=== PATIENT | female | born 1940 | race Caucasian/White ===

== ENCOUNTER → 2017-04-04 | Outpatient (CLI) | payer MEDICARE | END | disposition home or self-care (01) | LOC: LABWHC1 16:31 | PROVIDERS: ATTEND Internal Medicine Interventional Cardiology | DX: E03.9 Hypothyroidism, unspecified (principal) | CPT/HCPCS: 36415; 84439; 84443 ==

== ENCOUNTER → 2018-01-24 | Outpatient (CLI) | payer MEDICARE, BC ==
[2018-01-24 10:32] LABS: Calcium 9.5 mg/dL (8.4-10.2); Potassium 4.4 mmol/L (3.5-5.1)
== END | disposition home or self-care (01) ==
LOC: LABWHC1 09:05
PROVIDERS: ATTEND Internal Medicine Interventional Cardiology
DX: I10 Essential (primary) hypertension (principal)
CPT/HCPCS: 36415; 80048

== ENCOUNTER 2021-07-17 15:37 | Inpatient (IN) | payer MEDICARE, BC ==
[2021-07-17] MEDS ORDERED: SODIUM CHLORIDE 0.9% 1,000 ML IV STA ×2 (15:42→18:28)
[2021-07-17 15:47] LABS: Glucose,Whole Blood 165 mg/dL (75-99)
--- NOTE | 2021-07-17 15:47 | ED ---
General Adult HPI - General Chief complaint: Altered Mental Status Stated complaint: stroke Time Seen by Provider: 07/17/21 15:42 Source: patient Mode of arrival: ambulatory Limitations: no limitations - History of Present Illness Initial comments: Dictation was produced using [employer] dictation software. please excuse any grammatical, word or spelling errors. Chief Complaint: 81-year-old female with unknown medical history presents to the emergency department for unresponsiveness History of Present Illness: Patient is an 81-year-old female she is brought in by EMS from [facility]. She was found this morning unresponsive. It's unclear whether patient was last seen normal. EMS got a limited history from [facility] staff. unknown what patient's medical history is. Upon initial EMS arrival they report that patient was unresponsive. She was found to be hypoxic with oxygen levels in the 70% speech is placed on 15 L nonrebreather with improvement of her oxygenation. She started to become more alert. She is not followed commands. EMS notes that patient had a slight sided left shoulder droop. EMS was told by [facility] that she had weakness in her left hand. EMS did not check her sugar. States that her heart rate was 124 they were not able to get an IV. Unable to obtain ROS secondary to mental status PHYSICAL EXAM: General Impression: Eyes open, not follow commands HEENT: Normocephalic atraumatic, dry mucous membranes, dark blood in the mouth Cardiovascular: Tachycardic Chest: Able to complete full sentences, no retractions, no tachypnea Abdomen: Some organomegaly in the epigastric abdominal area no fluid wave, she does rest to palpation of the abdomen Musculoskeletal: Pulses present and equal in all extremities, no peripheral edema Neurological: Doesn't follow commands, she does move all extremities with painful stimuli applied to the nailbed all extremities Rectal exam: Positive rectal tone, there is no melanotic debris or gross blood on digital rectal exam ED course: 81-year-old female with unknown past medical history presents to the emergency department via EMS from [facility] for unresponsiveness. At the bedside patient has eyes open not follow commands. She moves all extremities to painful stimuli. Point of care blood glucose was 165. Patient still hypoxic on room air however there isn't a reliable symmetry wave. She is placed on 15 L nonrebreather. Patient activated: Stroke. She is not a TPA candidate given that is unclear what her past medical history. Furthermore it is unclear when patient's symptom onset began. We do not know when patient was last seen normal. She does have signs of bleeding orally. This point TPA administration risks outweigh the benefits. History was obtained from daughter named Doris appeared she is listed as next of kin. She advised more history of present illness. States that her last several days she's been getting weak. There was a person in this assisted living facility who tested positive coronavirus last week. She was tested and test was negative. She has had poor oral intake for the last 2-3 days. Daughter received a call that patient was minimally responsive this morning. Daughter reports that patient has a history of dementia and thyroid disease and hiatal hernia. She has no history of stroke. She also has no history of GI bleed. Reports the patient is not taking any correlation medications. EKG interpretation: Ventricular rate 16, sinus tachycardia, CA interval 152, QRS 118, QTC 492. No CA prolongation, no QTC prolongation. It appears to be hyp eracute T waves in anterior septal precordial leads. This also T-wave inversions in lead 1 and aVL. There is no old EKG for comparison. She was placed on BiPAP. Code stroke was paged. Computed tomography scan the brain shows no hemorrhage. There is some ventriculomegaly consider hydrocephalus. , CT angiography of the head and neck shows fusiform stenosis of the cervical internal carotid arteries bilaterally. Laboratory evaluation obtained leukocytosis of 15.2. Coag panel is elevated INR 1.4. Metabolic panel shows acute kidney injury occurring 4.02 and a BUN of 97. Last creatinine was from March which was normal. Lactic acidosis of 10.4. Troponin 0.685. Urinalysis negative. Stool occult blood was positive. She is started on sodium bicarbonate drip. Arterial blood gases showed acceptable values on BiPAP. Patient given rectal aspirin. Patient be admitted. She has a guarded prognosis. Patient's daughter was updated. Patient started on broad-spectrum antibiotics. At this point there is concern for systemic inflammatory surgeon. There is concern of sepsis due to pneumonia. Patient was given 2 L cc bolus. Lactic acid level was 10.4. Case is discussed with Dr. Mckeon is willing to accept patients care. Neurology, nephrology and pulmonology are consulted. - Related Data Home Medications Medication Instructions Recorded Confirmed Ascorbic Acid [Vitamin C] 500 mg PO BID@0700,1900 07/17/21 07/17/21 Calcium Carbonate [Tums] 500 - 1,000 mg PO TID PRN 07/17/21 07/17/21 Calcium Polycarbophil [Fiber-Lax] 625 mg PO DAILY@0700 07/17/21 07/17/21 Cholecalciferol [Vitamin D3 (25 50 mcg PO DAILY@0700 07/17/21 07/17/21 Mcg = 1000 Iu)] Cyanocobalamin (Vitamin B-12) 1,000 mcg PO DAILY@0700 07/17/21 07/17/21 [Vitamin B-12] Folic Acid 1 mg PO DAILY@0700 07/17/21 07/17/21 Furosemide [Lasix] 20 mg PO Q48H 07/17/21 07/17/21 Lactulose 20 gm PO Q1H PRN 07/17/21 07/17/21 Levothyroxine Sodium [Synthroid] 25 mcg PO DAILY@0700 07/17/21 07/17/21 Liquacel 30 ml PO BID@0700,19007/17/21 07/17/21 Magnesium Hydroxide [Milk of 2,400 mg PO DAILY PRN 07/17/21 07/17/21 Magnesia] Memantine [Namenda] 10 mg PO BID@0700,19007/17/21 07/17/21 Metoprolol Succinate [Toprol XL] 25 mg PO DAILY@0700 07/17/21 07/17/21 Sennosides/Docusate Sodium [Senna 2 cap PO HS@19007/17/21 07/17/21 Plus 8.6-50 mg Softgel] Zinc Sulfate [Orazinc] 220 mg PO DAILY@0700 07/17/21 07/17/21 Allergies Allergy/AdvReac Type Severity Reaction Status Date / Time No Known Allergies Allergy Verified 07/17/21 16:56 Review of Systems ROS Statement: Those systems with pertinent positive or pertinent negative responses have been documented in the HPI. ROS Other: All systems not noted in ROS Statement are negative. Past Medical History Past Medical History: Unable to Obtain History of Any Multi-Drug Resistant Organisms: Unobtainable Past Surgical History: Unable to Obtain Past Psychological History: Unable to Obtain Smoking Status: Unknown if ever smoked Past Alcohol Use History: Unable to Obtain Past Drug Use History: Unable to Obtain General Exam Limitations: no limitations Course Vital Signs 07/17/21 07/17/21 07/17/21 15:40 15:54 16:26 Temperature 97.0 F L Pulse Rate 125 H 133 H 113 H Respiratory 20 20 20 Rate Blood Pressure 125/75 96/75 71/58 O2 Sat by Pulse 80 L 98 98 Oximetry 07/17/21 07/17/21 07/17/21 16:33 17:19 17:50 Temperature Pulse Rate 109 H 115 H 109 H Respiratory 20 24 24 Rate Blood Pressure 111/97 111/97 108/86 O2 Sat by Pulse 97 98 99 Oximetry Procedures - Sepsis Sepsis Focused Exam #1 Time Sepsis Criteria Met: 18:29 Sepsis Focused Exam Date: 07/17/21 Sepsis Focused Exam Time: 18:29 Capillary Refill: < 2 Seconds: Fingers, Toes Peripheral Pulses: Weak: Radial (R), Radial (L), Posterior Tibialis (R), Posterior Tibialis (L), Dorsalis Pedis (R), Dorsalis Pedis (L) Skin Color: Normal for Patient Respiratory Exam: wheezes Cardiovascular Exam: tachycardia Medical Decision Making - Lab Data Result diagrams: 07/17/21 16:16 07/17/21 16:16 Lab Results 07/17/21 07/17/21 07/17/21 Range/Units 15:39 15:59 16:08 WBC (3.8-10.6) k/uL RBC (3.80-5.40) m/uL Hgb (11.4-16.0) gm/dL Hct (34.0-46.0) % MCV (80.0-100.0) fL MCH (25.0-35.0) pg MCHC (31.0-37.0) g/dL RDW (11.5-15.5) % Plt Count (150-450) k/uL MPV Neutrophils % (Manual) % Band Neuts % (Manual) % Lymphocytes % (Manual) % Monocytes % (Manual) % Metamyelocytes % % Neutrophils # (Manual) (1.3-7.7) k/uL Lymphocytes # (Manual) (1.0-4.8) k/uL Monocytes # (Manual) (0-1.0) k/uL Metamyelocytes # (Man) (0) k/uL Nucleated RBCs (0-0) /100 WBC Manual Slide Review PT (9.0-12.0) sec INR (<1.2) APTT (22.0-30.0) sec Sodium (137-145) mmol/L Potassium (3.5-5.1) mmol/L Chloride (98-107) mmol/L Carbon Dioxide (22-30) mmol/L Anion Gap mmol/L BUN (7-17) mg/dL Creatinine (0.52-1.04) mg/dL Est GFR (CKD-EPI)AfAm (>60 ml/min/1.73 sqM) Est GFR (CKD-EPI)NonAf (>60 ml/min/1.73 sqM) Glucose (74-99) mg/dL POC Glucose (mg/dL) 165 H (75-99) mg/dL POC Glu Silverer ID Leticia Zayas Plasma Lactic Acid Jimbo (0.7-2.0) mmol/L Calcium (8.4-10.2) mg/dL Magnesium (1.6-2.3) mg/dL Total Bilirubin (0.2-1.3) mg/dL AST (14-36) U/L ALT (4-34) U/L Alkaline Phosphatase (38-126) U/L Troponin I (0.000-0.034) ng/mL Total Protein (6.3-8.2) g/dL Albumin (3.5-5.0) g/dL Urine Color Urine Appearance (Clear) Urine pH (5.0-8.0) Ur Specific Entiat (1.001-1.035) Urine Protein (Negative) Urine Glucose (UA) (Negative) Urine Ketones (Negative) Urine Blood (Negative) Urine Nitrite (Negative) Urine Bilirubin (Negative) Urine Urobilinogen (<2.0) mg/dL Ur Leukocyte Esterase (Negative) Urine RBC (0-5) /hpf Urine WBC (0-5) /hpf Ur Squamous Epith Cells (0-4) /hpf Hyaline Casts (0-2) /lpf Urine Mucus (None) /hpf Stool Occult Blood Positive H (Negative) Coronavirus (PCR) (Not Detectd) Blood Type O Positive Blood Type Confirm Blood Type Recheck No Previous Record Bld Type Recheck Status CABO Indicated Antibody Screen NEGATIVE Spec Expiration Date 07/20/2021230707/17/21 07/17/21 07/17/21 Range/Units 16:12 16:16 16:16 WBC 15.2 H (3.8-10.6) k/uL RBC 4.40 (3.80-5.40) m/uL Hgb 13.4 (11.4-16.0) gm/dL Hct 42.2 (34.0-46.0) % MCV 95.8 (80.0-100.0) fL MCH 30.5 (25.0-35.0) pg MCHC 31.8 (31.0-37.0) g/dL RDW 15.3 (11.5-15.5) % Plt Count 243 (150-450) k/uL MPV 9.6 Neutrophils % (Manual) 56 % Band Neuts % (Manual) 33 % Lymphocytes % (Manual) 9 % Monocytes % (Manual) 2 % Metamyelocytes % 1 % Neutrophils # (Manual) 13.50 H (1.3-7.7) k/uL Lymphocytes # (Manual) 1.37 (1.0-4.8) k/uL Monocytes # (Manual) 0.30 (0-1.0) k/uL Metamyelocytes # (Man) 0.15 H (0) k/uL Nucleated RBCs 5 H (0-0) /100 WBC Manual Slide Review Performed PT 14.3 H (9.0-12.0) sec INR 1.4 H (<1.2) APTT 17.8 L (22.0-30.0) sec Sodium (137-145) mmol/L Potassium (3.5-5.1) mmol/L Chloride (98-107) mmol/L Carbon Dioxide (22-30) mmol/L Anion Gap mmol/L BUN (7-17) mg/dL Creatinine (0.52-1.04) mg/dL Est GFR (CKD-EPI)AfAm (>60 ml/min/1.73 sqM) Est GFR (CKD-EPI)NonAf (>60 ml/min/1.73 sqM) Glucose (74-99) mg/dL POC Glucose (mg/dL) (75-99) mg/dL POC Glu Silverer ID Plasma Lactic Acid Jimbo (0.7-2.0) mmol/L Calcium (8.4-10.2) mg/dL Magnesium (1.6-2.3) mg/dL Total Bilirubin (0.2-1.3) mg/dL AST (14-36) U/L ALT (4-34) U/L Alkaline Phosphatase (38-126) U/L Troponin I (0.000-0.034) ng/mL Total Protein (6.3-8.2) g/dL Albumin (3.5-5.0) g/dL Urine Color Urine Appearance (Clear) Urine pH (5.0-8.0) Ur Specific Entiat (1.001-1.035) Urine Protein (Negative) Urine Glucose (UA) (Negative) Urine Ketones (Negative) Urine Blood (Negative) Urine Nitrite (Negative) Urine Bilirubin (Negative) Urine Urobilinogen (<2.0) mg/dL Ur Leukocyte Esterase (Negative) Urine RBC (0-5) /hpf Urine WBC (0-5) /hpf Ur Squamous Epith Cells (0-4) /hpf Hyaline Casts (0-2) /lpf Urine Mucus (None) /hpf Stool Occult Blood (Negative) Coronavirus (PCR) (Not Detectd) Blood Type Blood Type Confirm O Positive Blood Type Recheck Bld Type Recheck Status Antibody Screen Spec Expiration Date 07/17/21 07/17/21 07/17/21 Range/Units 16:16 16:16 16:16 WBC (3.8-10.6) k/uL RBC (3.80-5.40) m/uL Hgb (11.4-16.0) gm/dL Hct (34.0-46.0) % MCV (80.0-100.0) fL MCH (25.0-35.0) pg MCHC (31.0-37.0) g/dL RDW (11.5-15.5) % Plt Count (150-450) k/uL MPV Neutrophils % (Manual) % Band Neuts % (Manual) % Lymphocytes % (Manual) % Monocytes % (Manual) % Metamyelocytes % % Neutrophils # (Manual) (1.3-7.7) k/uL Lymphocytes # (Manual) (1.0-4.8) k/uL Monocytes # (Manual) (0-1.0) k/uL Metamyelocytes # (Man) (0) k/uL Nucleated RBCs (0-0) /100 WBC Manual Slide Review PT (9.0-12.0) sec INR (<1.2) APTT (22.0-30.0) sec Sodium 140 (137-145) mmol/L Potassium 4.2 (3.5-5.1) mmol/L Chloride 105 (98-107) mmol/L Carbon Dioxide 15 L (22-30) mmol/L Anion Gap 20 mmol/L BUN 97 H (7-17) mg/dL Creatinine 4.02 H (0.52-1.04) mg/dL Est GFR (CKD-EPI)AfAm 11 (>60 ml/min/1.73 sqM) Est GFR (CKD-EPI)NonAf 10 (>60 ml/min/1.73 sqM) Glucose 193 H (74-99) mg/dL POC Glucose (mg/dL) (75-99) mg/dL POC Glu Silverer ID Plasma Lactic Acid Jimbo 10.4 H* (0.7-2.0) mmol/L Calcium 9.4 (8.4-10.2) mg/dL Magnesium 2.4 H (1.6-2.3) mg/dL Total Bilirubin 1.0 (0.2-1.3) mg/dL AST 38 H (14-36) U/L ALT 29 (4-34) U/L Alkaline Phosphatase 125 (38-126) U/L Troponin I 0.685 H* (0.000-0.034) ng/mL Total Protein 6.0 L (6.3-8.2) g/dL Albumin 2.7 L (3.5-5.0) g/dL Urine Color Urine Appearance (Clear) Urine pH (5.0-8.0) Ur Specific Entiat (1.001-1.035) Urine Protein (Negative) Urine Glucose (UA) (Negative) Urine Ketones (Negative) Urine Blood (Negative) Urine Nitrite (Negative) Urine Bilirubin (Negative) Urine Urobilinogen (<2.0) mg/dL Ur Leukocyte Esterase (Negative) Urine RBC (0-5) /hpf Urine WBC (0-5) /hpf Ur Squamous Epith Cells (0-4) /hpf Hyaline Casts (0-2) /lpf Urine Mucus (None) /hpf Stool Occult Blood (Negative) Coronavirus (PCR) (Not Detectd) Blood Type Blood Type Confirm Blood Type Recheck Bld Type Recheck Status Antibody Screen Spec Expiration Date 07/17/21 07/17/21 Range/Units 16:16 16:17 WBC (3.8-10.6) k/uL RBC (3.80-5.40) m/uL Hgb (11.4-16.0) gm/dL Hct (34.0-46.0) % MCV (80.0-100.0) fL MCH (25.0-35.0) pg MCHC (31.0-37.0) g/dL RDW (11.5-15.5) % Plt Count (150-450) k/uL MPV Neutrophils % (Manual) % Band Neuts % (Manual) % Lymphocytes % (Manual) % Monocytes % (Manual) % Metamyelocytes % % Neutrophils # (Manual) (1.3-7.7) k/uL Lymphocytes # (Manual) (1.0-4.8) k/uL Monocytes # (Manual) (0-1.0) k/uL Metamyelocytes # (Man) (0) k/uL Nucleated RBCs (0-0) /100 WBC Manual Slide Review PT (9.0-12.0) sec INR (<1.2) APTT (22.0-30.0) sec Sodium (137-145) mmol/L Potassium (3.5-5.1) mmol/L Chloride (98-107) mmol/L Carbon Dioxide (22-30) mmol/L Anion Gap mmol/L BUN (7-17) mg/dL Creatinine (0.52-1.04) mg/dL Est GFR (CKD-EPI)AfAm (>60 ml/min/1.73 sqM) Est GFR (CKD-EPI)NonAf (>60 ml/min/1.73 sqM) Glucose (74-99) mg/dL POC Glucose (mg/dL) (75-99) mg/dL POC Glu Silverer ID Plasma Lactic Acid Jimbo (0.7-2.0) mmol/L Calcium (8.4-10.2) mg/dL Magnesium (1.6-2.3) mg/dL Total Bilirubin (0.2-1.3) mg/dL AST (14-36) U/L ALT (4-34) U/L Alkaline Phosphatase (38-126) U/L Troponin I (0.000-0.034) ng/mL Total Protein (6.3-8.2) g/dL Albumin (3.5-5.0) g/dL Urine Color Yellow Urine Appearance Cloudy H (Clear) Urine pH 5.0 (5.0-8.0) Ur Specific Entiat 1.021 (1.001-1.035) Urine Protein Trace H (Negative) Urine Glucose (UA) Negative (Negative) Urine Ketones Negative (Negative) Urine Blood Negative (Negative) Urine Nitrite Negative (Negative) Urine Bilirubin Negative (Negative) Urine Urobilinogen <2.0 (<2.0) mg/dL Ur Leukocyte Esterase Negative (Negative) Urine RBC 12 H (0-5) /hpf Urine WBC 5 (0-5) /hpf Ur Squamous Epith Cells 2 (0-4) /hpf Hyaline Casts 8 H (0-2) /lpf Urine Mucus Rare H (None) /hpf Stool Occult Blood (Negative) Coronavirus (PCR) Not Detected (Not Detectd) Blood Type Blood Type Confirm Blood Type Recheck Bld Type Recheck Status Antibody Screen Spec Expiration Date Critical Care Time Critical Care Time: Yes Total Critical Care Time: 33 Disposition Clinical Impression: Sepsis due to pneumonia, JUAN DAVID (acute kidney injury) Disposition: ADMITTED IP TO THIS [facility] Condition: Critical Referrals: Aysha Amin MD [REFERRING] - 1-2 days
--- NOTE | 2021-07-17 16:17 | CT ---
EXAMINATION TYPE: CT brain wo con for TPA DATE OF EXAM: 07/17/2021 COMPARISON: CT brain 04/10/2016 HISTORY: Neuro deficits. CT DLP: 1099.4 mGycm Automated exposure control for dose reduction was used. Helical imaging through the brain. FINDINGS: Cortical atrophy is again noted. There is ventriculomegaly similar to prior exam. No evident hemorrha ge. Periventricular white matter shows patchy low attenuation. Calvarium is intact. IMPRESSION: NO EVIDENT HEMORRHAGE. SUSPECT SOME INTERVAL INCREASE IN THE DEGREE OF VENTRICULOMEGALY, CONSIDER HYD ROCEPHALUS, NORMAL PRESSURE HYDROCEPHALUS. AGE-RELATED CHANGES OF ATROPHY AND CHRONIC SMALL VESSEL IS CHEMIA.
[2021-07-17 16:24] LABS: HCT 42.2 % (34.0-46.0); HGB 13.4 gm/dL (11.4-16.0); MCH 30.5 pg (25.0-35.0); MCHC 31.8 g/dL (31.0-37.0); MCV 95.8 fL (80.0-100.0); Mean Platelet Volume 9.6; Platelet Count 243 k/uL (150-450); RDW 15.3 % (11.5-15.5)
[2021-07-17 16:38] LABS: Appearance,Urine Cloudy (Clear); Bilirubin,Urine Negative (Negative); Blood,Urine Negative (Negative); Color,Urine Yellow; Glucose,Urine (UA) Negative (Negative); Hyaline Casts,Urine 8 /lpf (0-2); Ketones,Urine Negative (Negative); Leukocyte Esterase,Urine Negative (Negative); Mucus,Urine Rare /hpf; Nitrite,Urine Negative (Negative); Protein,Urine Trace (Negative); RBC,Urine 12 /hpf (0-5); Specific Gravity,Urine 1.021 (1.001-1.035); Squamous Epithelial Cell,Urine 2 /hpf (0-4); Urobilinogen,Urine <2.0 mg/dL (<2.0); WBC,Urine 5 /hpf (0-5)
[2021-07-17 16:39] LABS: INR 1.4 (<1.2); Prothrombin Time 14.3 sec (9.0-12.0)
[2021-07-17 16:41] LABS: Albumin 2.7 g/dL (3.5-5.0); Calcium 9.4 mg/dL (8.4-10.2); Magnesium 2.4 mg/dL (1.6-2.3); Potassium 4.2 mmol/L (3.5-5.1)
[2021-07-17 16:43] LABS: Partial Thromboplastin Time 17.8 sec (22.0-30.0)
[2021-07-17] MEDS ORDERED: VANCOMYCIN IV PER PHARMACY 1 EACH MISC MISCELLANE PRN (16:49)
[2021-07-17] MEDS ORDERED: PIPERACILLIN-TAZOBACTAM 3.375 GM in SODIUM CHLORIDE 0.9% 100 ML IVPB STA (16:49)
[2021-07-17 16:51] LABS: Band Neutrophils % 33 %; Lymphocytes # (M) 1.37 k/uL (1.0-4.8); Metamyelocytes # (M) 0.15 k/uL (0); Metamyelocytes % 1 %; Neutrophils % (M) 56 %; Nucleated Red Blood Cells 5 /100 WBC (0-0); Total Cells Counted 200; WBC 15.2 k/uL (3.8-10.6)
[2021-07-17] MEDS ORDERED: VANCOMYCIN 1,250 MG in SODIUM CHLORIDE 0.9% 250 ML IVPB STA (16:53)
--- NOTE | 2021-07-17 17:31 | XR ---
EXAMINATION TYPE: XR chest 2V DATE OF EXAM: 07/17/2021 COMPARISON: Chest CT scan 07/14/2011 HISTORY: Altered mental status TECHNIQUE: FINDINGS: There is patchy bilateral pulmonary airspace infiltrates. There is no obvious heart failure . Heart size is normal. Costophrenic angles show no definite pleural fluid. There are chest leads. IMPRESSION: Moderate bilateral patchy pneumonia which is new compared to old exam. No obvious heart f ailure.
--- NOTE | 2021-07-17 17:41 | CT ---
EXAMINATION TYPE: CT angio head neck DATE OF EXAM: 07/17/2021 COMPARISON: None HISTORY: Neuro deficits CT DLP: 331.6 mGycm Automated exposure control for dose reduction was used. CONTRAST: Performed with IV Contrast, patient injected with 65 mL of Isovue 370. Images obtained from the aortic arch to the vertex of the brain with IV contrast. There are 3-D post processed images. There is dilated fluid-filled thoracic esophagus. Aortic arch is intact. There is normal branching pa ttern of the great vessels on the aortic arch. There is arterial flow in both subclavian arteries. Th ere are some cystic changes in the thyroid gland. There is arterial flow in the common internal and e xternal carotid arteries bilaterally. There is arterial flow in both vertebral arteries. There is wid e patency of the carotid artery bifurcations. There is some fusiform narrowing of the distal internal carotid arteries bilaterally at the level of the angle of the mandible. Right internal carotid artery is narrowed to 2.7 mm. There is 3 mm left in ternal carotid artery. There is no evidence of carotid or vertebral artery aneurysm or dissection. There is arterial flow in the vertebrobasilar artery system. There is arterial flow in the anterior m iddle and posterior cerebral arteries bilaterally. I see no evidence of intracranial hemodynamic sten osis. There is no evidence of intracranial aneurysm or neovascularity. There is normal enhancement of the venous sinuses. There is no mass effect. IMPRESSION: There is fusiform stenosis of the cervical internal carotid arteries bilaterally.
[2021-07-17] MEDS ORDERED: ASPIRIN 600 MG SUPP RECTAL STA (18:22)
[2021-07-17] MEDS ORDERED: ACETAMINOPHEN TAB 325 MG TAB PO PRN (18:23)
[2021-07-17] MEDS ORDERED: ONDANSETRON 4 MG/2 ML VIAL IVP PRN (18:23)
[2021-07-17] MEDS ORDERED: NALOXONE 0.4 MG/ML 1 ML VIAL IV PRN (18:23)
[2021-07-17] MEDS ORDERED: SODIUM BICARB 8.4% 50 ML SYR (1 MEQ/ML) IV STA (18:23)
[2021-07-17] MEDS ORDERED: ASPIRIN 300 MG SUPP RECTAL STA (18:26)
[2021-07-17] MEDS ORDERED: PANTOPRAZOLE 40 MG/10 ML VIAL IVP STA (18:33)
[2021-07-17] MEDS: SODIUM CHLORIDE 0.9% 1,000 ML IV SCH (18:52)
[2021-07-17] MEDS: DEXTROSE 5% IN WATER 1,000 ML with SODIUM BICARB (1 MEQ/ML) 150 ML IV SCH (19:38)
[2021-07-18] MEDS ORDERED: VANCOMYCIN 1,250 MG in SODIUM CHLORIDE 0.9% 250 ML IVPB ONE (06:00)
[2021-07-18 08:19] LABS: Calcium 7.9 mg/dL (8.4-10.2); Magnesium 2.1 mg/dL (1.6-2.3); Total Bilirubin 0.6 mg/dL (0.2-1.3); Total Protein 4.6 g/dL (6.3-8.2)
--- NOTE | 2021-07-18 09:43 | P.NPCON ---
History of Present Illness - Reason for Consult acute renal failure - History of Present Illness Reason for consultation: Acute kidney injury History of present illness: Patient is a 81-year-old female seen in consultation for acute kidney injury. Patient baseline creatinine from March 2021 is 1.0. This admission and was elevated at 4.02 and is down to 3.56 today. Patient presented from an ECF due t o unresponsiveness. She was noted to be hypoxic and is currently on BiPAP. She did undergo CT angiographic of the head and neck on July 17 which showed fusiform stenosis of the cervical internal carotid arteries bilaterally. She tested negative for coronavirus. Patient was acidotic on admission which is now resolved. She is currently maintained on bicarb drip. Potassium level is on the lower side. She is not responding much to verbal commands. Blood pressure was noted to be low in the systolic 70s to 90s on admission. This morning it was 101/78. She was on Lasix outpatient and is currently held. Vital signs are stable. HEENT: Head exam is unremarkable. On BiPAP. LUNGS: Breath sounds decreased. HEART: Rate and Rhythm are regular. ABDOMEN: Soft, no distention. EXTREMITITES: No edema. Past Medical History Past Medical History: Unable to Obtain History of Any Multi-Drug Resistant Organisms: Unobtainable Past Surgical History: Unable to Obtain Past Psychological History: Unable to Obtain Smoking Status: Unknown if ever smoked Past Alcohol Use History: Unable to Obtain Past Drug Use History: Unable to Obtain Medications and Allergies Home Medications Medication Instructions Recorded Confirmed Type Ascorbic Acid [Vitamin C] 500 mg PO BID@0700,1900 07/17/21 07/17/21 History Calcium Carbonate [Tums] 500 - 1,000 mg PO TID PRN 07/17/21 07/17/21 History Calcium Polycarbophil [Fiber-Lax] 625 mg PO DAILY@0700 07/17/21 07/17/21 History Cholecalciferol [Vitamin D3 (25 50 mcg PO DAILY@0700 07/17/21 07/17/21 History Mcg = 1000 Iu)] Cyanocobalamin (Vitamin B-12) 1,000 mcg PO DAILY@0700 07/17/21 07/17/21 History [Vitamin B-12] Folic Acid 1 mg PO DAILY@0700 07/17/21 07/17/21 History Furosemide [Lasix] 20 mg PO Q48H 07/17/21 07/17/21 History Lactulose 20 gm PO Q1H PRN 07/17/21 07/17/21 History Levothyroxine Sodium [Synthroid] 25 mcg PO DAILY@0700 07/17/21 07/17/21 History Liquacel 30 ml PO BID@0700,1900 07/17/21 07/17/21 History Magnesium Hydroxide [Milk of 2,400 mg PO DAILY PRN 07/17/21 07/17/21 History Magnesia] Memantine [Namenda] 10 mg PO BID@0700,1900 07/17/21 07/17/21 History Metoprolol Succinate [Toprol XL] 25 mg PO DAILY@0700 07/17/21 07/17/21 History Sennosides/Docusate Sodium [Senna 2 cap PO HS@1900 07/17/21 07/17/21 History Plus 8.6-50 mg Softgel] Zinc Sulfate [Orazinc] 220 mg PO DAILY@0700 07/17/21 07/17/21 History Allergies Allergy/AdvReac Type Severity Reaction Status Date / Time No Known Allergies Allergy Verified 07/17/21 16:56 Physical Exam Vitals: Vital Signs Temp Pulse Pulse Resp BP BP Pulse Ox 07/18/21 08:00 97.5 F L 93 19 101/78 95 07/18/21 04:00 97.5 F L 97 20 131/80 07/18/21 02:00 20 07/18/21 00:00 97.9 F 102 H 20 103/63 07/17/21 22:00 110 H 22 101/52 94 L 07/17/21 20:00 107 H 25 H 96/61 93 L 07/17/21 18:43 97.9 F 113 H 24 91/50 97 07/17/21 17:50 109 H 24 108/86 99 07/17/21 17:19 115 H 24 111/97 98 07/17/21 16:33 109 H 20 111/97 97 07/17/21 16:26 113 H 20 71/58 98 07/17/21 15:54 133 H 20 96/75 98 07/17/21 15:40 97.0 F L 125 H 20 125/75 80 L Intake and Output 07/17/21 07/18/21 07/18/21 22:59 06:59 14:59 Intake Total 840 Balance 840 Intake: Intake, IV Titration 840 Amount Dextrose 5% in Water 1, 840 000 ml @ 120 mls/hr IV . Q9H35M JONO with Sodium Bicarb (1 Meq/ml) 150 ml Rx#:[id number] Other: Weight 60.6 kg 67 kg Results - Lab Results Most recent lab results Calcium 7.9 mg/dL (8.4-10.2) L 07/18/21 04:57 Magnesium 2.1 mg/dL (1.6-2.3) 07/18/21 04:57 07/17/21 16:16 07/18/21 04:57 Assessment and Plan Plan: Assessment: 1. Acute kidney injury secondary to ATN secondary to hypotension. Patient also received IV contrast on July 17. Creatinine was 4.02 on admission and is down to 3.56 today. Baseline creatinine near 1. 2. Acute hypoxic respiratory failure. 3.. Hypokalemia from poor intake and intracellular shifting from IV bicarb. 4. Metabolic acidosis secondary to acute kidney injury maintained on bicarb drip. Improved. 5. Pneumonia on antibiotics. Plan: Stop bicarb drip. Start normal saline at 75 mL an hour. Replace potassium. Check renal ultrasound. Continue to monitor renal function and urine output. Thank you for the consultation. I will continue to follow the patient with you during her hospital stay.
[2021-07-18] MEDS ORDERED: SODIUM CHLORIDE 0.9% 1,000 ML IV SCH (09:45)
--- NOTE | 2021-07-18 10:35 | US ---
EXAMINATION TYPE: US kidneys/renal and bladder DATE OF EXAM: 07/18/2021 COMPARISON: CT abdomen 2010 CLINICAL HISTORY: taylor. EXAM MEASUREMENTS: Right Kidney: 10.0 x 4.5 x 5.0 cm Left Kidney: 8.5 x 4.1 x 4.3 cm Technically difficult exam due to patient being agitated and uncooperative for exam. Right Kidney: lower pole cyst measures 4.8 x 5.6 x 4.9 cm Left Kidney: No hydronephrosis or masses seen Bladder: not imaged Suboptimal study. No gross hydronephrosis seen bilaterally. Some cortical thinning bilaterally. Incre ased cortical echogenicity left kidney. Roughly 5.0 cm partially exophytic thin-walled cyst lower josselyn e right kidney redemonstrated. IMPRESSION: Suboptimal study without hydronephrosis seen bilaterally.
--- NOTE | 2021-07-18 12:58 | P.CNNES ---
History of Present Illness Consult date: 07/18/21 Requesting physician: Aiden Castrejon Reason for Consult: code stroke History of Present Illness: This is an 81-year-old woman with medical history of advanced dementia, hiatal hernia, thyroid issues who presented to the emergency department on 07/17/2021 via EMS from assisted living facility since the patient was found unresponsive. Unknown last normal state. History is obtained from medical records and patient's nurse. Upon the EMS seeing the patient her oxygen level was 70% in the ED notes. Was felt the patient had slight sided left shoulder droop per ED note (not sure if was typo and was suppose to facial droop). Also EMS was told by his assisted living facility that the patient had weakness in the left hand. The daughter provided the some of the history to the ED team and she notified them that she's been getting weaker for several days who tested positive of the ward virus last week she also has a poor oral intake for last 2-3 days. Also she notified them that that she has history of dementia. Patient's nurse got a hold of the patient daughter and 5 to her that the patient has advanced dementia and alert oriented X0 per the nurse. And if she talks is nonsensical. Per the nurse she did not witness any seizure-like activity during her shift or that was reported overnight. She has been nonverbal and possibly this is her baseline per the nurse. And the nurse has not noticed any focal deficits. Per the EMR the patient will medication consist of magnesium, lactulose, calcium, zinc, metoprolol, amantadine 10 mg 1 tablet twice a day, Synthroid, Lasix, folic acid 1 mg daily, calcium, vitamin B12 1000 g daily. I spoke with patient daughter (aL) via phone and said she had advance dementia for 8 years. She is oriented X0. She has one word answers. But in last 2 month 2 1/2 month just stares and non-responsive. Some of the workup in the hospital consisted of: Initial vital signs his blood pressure 125/75, heart rate of 125, respiratory of 20, temperature of 97.0 Fahrenheit axillary and pulse ox of 80% at room air. Patient was started on nonrebreather and her pulse ox improved to 98%. Patient has been afebrile in our facility. Stroke code was activated. CT of the head is reported as no evident marriage. Suspect some interval increase in the degree of ventriculomegaly, consider hydrocephalus, normal pressure hydrocephalus. Age-related changes of atrophy and chronic small vessel ischemia. 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 There is no evidence of intracranial hemodynamic stenosis. Per the ED notes the patient last normal was unclear. Patient is not a TPA candidate since of unclear of her medical history as well as the time of onset. And a TPA risk outweighed the benefit. Other work-up: Initial white blood cells 15.2 thousand and predominantly neutrophilic. Sodium on presentation is 140, creatinine is 4.02, glucose and serum of 193, calcium 9.4, magnesium is 2.4, AST of 38, ALT of 29, CK level is 182. Initial plasma lactic acid the vein is 10.4. Patient creatinine is trending down and currently it's at 3.56. Urinalysis seems negative for urinary tract infection. Stool local blood was positive Ward virus PCR was not detected Review of Systems Review of system: Is limited but the prior positive and negative as per HPI. Past Medical History Past Medical History: Unable to Obtain History of Any Multi-Drug Resistant Organisms: Unobtainable Past Surgical History: Unable to Obtain Past Psychological History: Unable to Obtain Smoking Status: Unknown if ever smoked Past Alcohol Use History: Unable to Obtain Past Drug Use History: Unable to Obtain Medications and Allergies Home Medications Medication Instructions Recorded Confirmed Type Ascorbic Acid [Vitamin C] 500 mg PO BID@0700,1900 07/17/21 07/17/21 History Calcium Carbonate [Tums] 500 - 1,000 mg PO TID PRN 07/17/21 07/17/21 History Calcium Polycarbophil [Fiber-Lax] 625 mg PO DAILY@0700 07/17/21 07/17/21 History Cholecalciferol [Vitamin D3 (25 50 mcg PO DAILY@0700 07/17/21 07/17/21 History Mcg = 1000 Iu)] Cyanocobalamin (Vitamin B-12) 1,000 mcg PO DAILY@0700 07/17/21 07/17/21 History [Vitamin B-12] Folic Acid 1 mg PO DAILY@0700 07/17/21 07/17/21 History Furosemide [Lasix] 20 mg PO Q48H 07/17/21 07/17/21 History Lactulose 20 gm PO Q1H PRN 07/17/21 07/17/21 History Levothyroxine Sodium [Synthroid] 25 mcg PO DAILY@0700 07/17/21 07/17/21 History Liquacel 30 ml PO BID@0700,19007/17/21 07/17/21 History Magnesium Hydroxide [Milk of 2,400 mg PO DAILY PRN 07/17/21 07/17/21 History Magnesia] Memantine [Namenda] 10 mg PO BID@07,189907/17/21 07/17/21 History Metoprolol Succinate [Toprol XL] 25 mg PO DAILY@0700 07/17/21 07/17/21 History Sennosides/Docusate Sodium [Senna 2 cap PO HS@189907/17/21 07/17/21 History Plus 8.6-50 mg Softgel] Zinc Sulfate [Orazinc] 220 mg PO DAILY@0700 07/17/21 07/17/21 History Allergies Allergy/AdvReac Type Severity Reaction Status Date / Time No Known Allergies Allergy Verified 07/17/21 16:56 Physical Examination - Vital Signs Vital Signs: Vital Signs Temp Pulse Pulse Resp BP BP Pulse Ox 07/18/21 10:55 103 H 18 96 07/18/21 08:00 97.5 F L 93 19 101/78 95 07/18/21 04:00 97.5 F L 97 20 131/80 07/18/21 02:00 20 07/18/21 00:00 97.9 F 102 H 20 103/63 07/17/21 22:00 110 H 22 101/52 94 L 07/17/21 20:00 107 H 25 H 96/61 93 L 07/17/21 18:43 97.9 F 113 H 24 91/50 97 07/17/21 17:50 109 H 24 108/86 99 07/17/21 17:19 115 H 24 111/97 98 07/17/21 16:33 109 H 20 111/97 97 07/17/21 16:26 113 H 20 71/58 98 07/17/21 15:54 133 H 20 96/75 98 07/17/21 15:40 97.0 F L 125 H 20 125/75 80 L Intake and Output 07/17/21 07/18/2107/18/21 22:59 06:59 14:59 Intake Total 840 Balance 840 Intake: Intake, IV Titration 840 Amount Dextrose 5% in Water 1, 840 000 ml @ 120 mls/hr IV . Q9H35M JONO with Sodium Bicarb (1 Meq/ml) 150 ml Rx#:[id number] Other: Weight 60.6 kg 67 kg GENERAL: The patient is lying in bed and does not seem in acute distress. CHEST: The heart rate is regular rate rhythm. No murmurs to auscultation. LUNG: Clear to auscultation bilaterally no wheezing noted throughout. Not labored breathing. ABDOMEN/GI: Bowel sounds present in all 4 quadrants. No tenderness to palpation throughout. NEUROLOGICAL: Limited because of her condition/cooperation. Higher mental function: The patient is drowsy but is awakeable to voice. Is mute and not attempting to verbalizing or following commands. Cranial nerves: The pupils are round, equal and reactive. Primary gaze is center. Visual moy could be assessed. EOM is tracking throughout the room and no appreciable nystagmus. No facial weakness. Otherwise rest of cranial nerves is limited. Motor: The strength is hard to assess but is withdrawling all 4 extremities to painful stimuli and does not appear any focality. Appears possibly increase tone over left upper (but somewhat hard to assess). Normal bulk. Cerebellum: Could not assess. Sensation: Sensation to touch is hard to assess but is withdrawling to painful stimuli throughout. Reflexes (right/left): 2+ throughout. Plantars are mute bilaterally. Results PT of 14.3, INR is 1.4, PTT of 17.8. - Laboratory Findings CBC and BMP: 07/17/21 16:16 07/18/21 04:57 Abnormal Lab Findings: Abnormal Labs 07/17/21 07/17/21 07/17/21 15:39 15:59 16:16 WBC 15.2 H Neutrophils # (Manual) 13.50 H Metamyelocytes # (Man) 0.15 H Nucleated RBCs 5 H PT INR APTT Potassium Carbon Dioxide BUN Creatinine Glucose POC Glucose (mg/dL) 165 H Plasma Lactic Acid Jimbo Calcium Magnesium AST Creatine Kinase Troponin I Total Protein Albumin Urine Appearance Urine Protein Urine RBC Hyaline Casts Urine Mucus Stool Occult Blood Positive H 07/17/21 07/17/21 07/17/21 16:16 16:16 16:16 WBC Neutrophils # (Manual) Metamyelocytes # (Man) Nucleated RBCs PT 14.3 H INR 1.4 H APTT 17.8 L Potassium Carbon Dioxide 15 L BUN 97 H Creatinine 4.02 H Glucose 193 H POC Glucose (mg/dL) Plasma Lactic Acid Jimbo Calcium Magnesium 2.4 H AST 38 H Creatine Kinase Troponin I 0.685 H* Total Protein 6.0 L Albumin 2.7 L Urine Appearance Urine Protein Urine RBC Hyaline Casts Urine Mucus Stool Occult Blood 07/17/21 07/17/21 07/17/21 16:16 16:16 16:17 WBC Neutrophils # (Manual) Metamyelocytes # (Man) Nucleated RBCs PT INR APTT Potassium Carbon Dioxide BUN Creatinine Glucose POC Glucose (mg/dL) Plasma Lactic Acid Jimbo 10.4 H* Calcium Magnesium AST Creatine Kinase 182 H Troponin I Total Protein Albumin Urine Appearance Cloudy H Urine Protein Trace H Urine RBC 12 H Hyaline Casts 8 H Urine Mucus Rare H Stool Occult Blood 07/17/21 07/17/21 07/18/21 19:04 22:27 04:57 WBC Neutrophils # (Manual) Metamyelocytes # (Man) Nucleated RBCs PT INR APTT Potassium Carbon Dioxide BUN Creatinine Glucose POC Glucose (mg/dL) Plasma Lactic Acid Jimbo 8.7 H* 6.7 H* 4.9 H* Calcium Magnesium AST Creatine Kinase Troponin I Total Protein Albumin Urine Appearance Urine Protein Urine RBC Hyaline Casts Urine Mucus Stool Occult Blood 07/18/21 07/18/21 04:57 09:12 WBC Neutrophils # (Manual) Metamyelocytes # (Man) Nucleated RBCs PT INR APTT Potassium 3.0 L Carbon Dioxide BUN 95 H Creatinine 3.56 H Glucose 177 H POC Glucose (mg/dL) Plasma Lactic Acid Jimbo 6.4 H* Calcium 7.9 L Magnesium AST 42 H Creatine Kinase Troponin I Total Protein 4.6 L Albumin 2.0 L Urine Appearance Urine Protein Urine RBC Hyaline Casts Urine Mucus Stool Occult Blood Assessment and Plan Assessment: * Altered mental status likely due to hypoxic encephalopathy and component of metabolic encephalopathy. Rule out underlying infection * Questionable reported left-sided sleft hand weakness. Possibly her generalized weakness due to hypoxic encephalopathy. Cannot definitely rule out stroke. * Acute kidney insufficiency * Elevated the plasma lactic acid vein rule out underlying infection * Positive Fecal occult blood. * Advanced dementia (is oriented X0) * History of hypothyroidism Plan: We'll not get MRI the brain or carotid duplex and the patient's daughter is in agreement. I'll get a repeat CT of the head tomorrow to see if there is any changes [address] that would suggestive of stroke which seems low. In the ED the patient was given aspirin 600 mg rectally once. I'll not start the patient on antiplatelets unless there is stroke on repeat imaging and especially with positive FOBT. Ordered routine EEG Ordered TSH, vitamin B-12, folate level, ammonia level. Every 4 hours neuro checks Pulmonary team is on board Nephrology team is consulted We'll defer the rest of the medical management to the primary team. The plan is discussed with the patient's daughter (Doris) via phone and her nurse. Thank you for the consultation. Leroy Maciel M.D. Neuro-hospitalist Time with Patient: Greater than 30
[2021-07-18 13:14] LABS: Lactic Acid, Venous 5.3 mmol/L (0.7-2.0)
[2021-07-18] MEDS ORDERED: SODIUM CHLORIDE 0.9% 500 ML 500 ML IV ONE (14:54)
--- NOTE | 2021-07-18 15:13 | P.CNPUL ---
History of Present Illness Consult date: 07/18/21 Requesting physician: Jericho Mckeon Reason for consult: dyspnea, hypoxemia, pneumonia, abnormal CXR/CT Chief complaint: Low saturations. History of present illness: Pulmonary consult dated 07/18/2021. 81-year-old female, poorly responsive, who apparently presents to the emergency department with an altered mental status. The patient was seen in the emergency room by one of the ER physicians. The history is obtained from the note done by the ER physician. The patient was apparently found to be unresponsive the morning that she presented on the , at the assisted living facility where she resides. Apparently, her saturations were 70%. She was placed on a nonrebreather mask, and her oxygenation did improve. She apparently became more alert. She was apparently not following any commands though. It was noted that she had a slight weakness in her left hand, and some drooping of her left shoulder. Her blood glucose was not checked by EMS. Heart rate was apparently 124. I can get no additional history from the patient herself. Currently, she is on 4 L nasal cannula. Her saturations are 96%. Blood pressure 101/78. Heart rate 103, and temperature 97.5. Respiratory rate is 18 breaths per minute. Current labs show a sodium 142, potassium 3, chlorides 107, CO2 25, anion gap 10, BUN 95, and creatinine 3.56. Glucose is 177. Lactic acid is 4.9, repeat is 6.4, and additional follow-up lactic acid is 5.3. The patient's N- terminal proBNP is 6050. Chest x-ray shows by lateral patchy infiltrates. Review of Systems REVIEW OF SYSTEMS: CONSTITUTIONAL: [Negative.] NEUROLOGIC: Poorly responsive, according to the ER physician's note. HEENT: [ Negative.] CARDIAC: Tachycardia, according to the ER physician's note. PULMONARY: Low saturations, according to the ER physician's note. GI: [Negative.] : [Negative.] RHEUMATOLOGIC: [ Negative.] IMMUNOLOGIC: [ Negative.] ENDOCRINE: [Negative. ] DERMATOLOGIC: [Negative.] Past Medical History Past Medical History: Unable to Obtain Additional Past Medical History / Comment(s): history obtained from daughter History of Any Multi-Drug Resistant Organisms: Unobtainable Past Surgical History: Unable to Obtain Past Anesthesia/Blood Transfusion Reactions: No Reported Reaction Past Psychological History: Unable to Obtain Smoking Status: Unknown if ever smoked Past Alcohol Use History: Unable to Obtain Past Drug Use History: Unable to Obtain Medications and Allergies Home Medications Medication Instructions Recorded Confirmed Type Ascorbic Acid [Vitamin C] 500 mg PO BID@0700,1900 07/17/21 07/17/21 History Calcium Carbonate [Tums] 500 - 1,000 mg PO TID PRN 07/17/21 07/17/21 History Calcium Polycarbophil [Fiber-Lax] 625 mg PO DAILY@0700 07/17/21 07/17/21 History Cholecalciferol [Vitamin D3 (25 50 mcg PO DAILY@0700 07/17/21 07/17/21 History Mcg = 1000 Iu)] Cyanocobalamin (Vitamin B-12) 1,000 mcg PO DAILY@0700 07/17/21 07/17/21 History [Vitamin B-12] Folic Acid 1 mg PO DAILY@0700 07/17/21 07/17/21 History Furosemide [Lasix] 20 mg PO Q48H 07/17/21 07/17/21 History Lactulose 20 gm PO Q1H PRN 07/17/21 07/17/21 History Levothyroxine Sodium [Synthroid] 25 mcg PO DAILY@0700 07/17/21 07/17/21 History Liquacel 30 ml PO BID@0700,19007/17/21 07/17/21 History Magnesium Hydroxide [Milk of 2,400 mg PO DAILY PRN 07/17/21 07/17/21 History Magnesia] Memantine [Namenda] 10 mg PO BID@0700,1900 07/17/21 07/17/21 History Metoprolol Succinate [Toprol XL] 25 mg PO DAILY@0700 07/17/21 07/17/21 History Sennosides/Docusate Sodium [Senna 2 cap PO HS@189907/17/21 07/17/21 History Plus 8.6-50 mg Softgel] Zinc Sulfate [Orazinc] 220 mg PO DAILY@0700 07/17/21 07/17/21 History Allergies Allergy/AdvReac Type Severity Reaction Status Date / Time No Known Allergies Allergy Verified 07/17/21 16:56 Physical Exam Osteopathic Statement: *. No significant issues noted on an osteopathic structural exam other than those noted in the History and Physical/Consult. Vitals: Vital Signs Temp Pulse Pulse Resp BP BP Pulse Ox 07/18/21 10:55 103 H 18 96 07/18/21 08:00 97.5 F L 103 H 18 101/78 95 07/18/21 04:00 97.5 F L 97 20 131/80 07/18/21 02:00 20 07/18/21 00:00 97.9 F 102 H 20 103/63 07/17/21 22:00 110 H 22 101/52 94 L 07/17/21 20:00 107 H 25 H 96/61 93 L 07/17/21 18:43 97.9 F 113 H 24 91/50 97 07/17/21 17:50 109 H 24 108/86 99 07/17/21 17:19 115 H 24 111/97 98 07/17/21 16:33 109 H 20 111/97 97 07/17/21 16:26 113 H 20 71/58 98 07/17/21 15:54 133 H 20 96/75 98 07/17/21 15:40 97.0 F L 125 H 20 125/75 80 L Intake and Output 07/17/21 07/18/21 07/18/21 22:59 06:59 14:59 Intake Total 840 Balance 840 Intake: Intake, IV Titration 840 Amount Dextrose 5% in Water 1, 840 000 ml @ 120 mls/hr IV . Q9H35M JONO with Sodium Bicarb (1 Meq/ml) 150 ml Rx#:[id number] Other: Weight 60.6 kg 67 kg Poorly responsive, opens eyes, does not speak. No respiratory distress. HEENT examination is grossly unremarkable. Neck supple. Full range of motion. No adenopathy thyromegaly or neck vein distention. Cardiovascular examination reveals regular rhythm rate. S1-S2 normal. No S3 or S4. No discernible murmur noted. Heart sounds are distant. Heart rate 103 bpm. Lungs reveal occasional rhonchi. No wheezes or crackles. Breath sounds equal bilaterally. She does not take deep breaths. Abdomen soft bowel sounds are heard. No masses or tenderness. Extremities are intact. No cyanosis clubbing or edema. Skin is without rash or lesion. Neurologic examination is very difficult to assess. The patient's very lethargic and somnolent. She does not speak. She moves her extremities poorly. Results - Laboratory Findings CBC and BMP: 07/17/21 16:16 07/18/21 04:57 PT/INR, D-dimer PT 14.3 sec (9.0-12.0) H 07/17/21 16:16 INR 1.4 (<1.2) H 07/17/21 16:16 Abnormal lab findings: Abnormal Labs 07/17/21 07/17/21 07/17/21 15:39 15:59 16:16 WBC 15.2 H Neutrophils # (Manual) 13.50 H Metamyelocytes # (Man) 0.15 H Nucleated RBCs 5 H PT INR APTT Potassium Carbon Dioxide BUN Creatinine Glucose POC Glucose (mg/dL) 165 H Plasma Lactic Acid Jimbo Calcium Magnesium AST Creatine Kinase Troponin I Total Protein Albumin Urine Appearance Urine Protein Urine RBC Hyaline Casts Urine Mucus Stool Occult Blood Positive H 07/17/21 07/17/21 07/17/21 16:16 16:16 16:16 WBC Neutrophils # (Manual) Metamyelocytes # (Man) Nucleated RBCs PT 14.3 H INR 1.4 H APTT 17.8 L Potassium Carbon Dioxide 15 L BUN 97 H Creatinine 4.02 H Glucose 193 H POC Glucose (mg/dL) Plasma Lactic Acid Jimbo Calcium Magnesium 2.4 H AST 38 H Creatine Kinase Troponin I 0.685 H* Total Protein 6.0 L Albumin 2.7 L Urine Appearance Urine Protein Urine RBC Hyaline Casts Urine Mucus Stool Occult Blood 07/17/21 07/17/21 07/17/21 16:16 16:16 16:17 WBC Neutrophils # (Manual) Metamyelocytes # (Man) Nucleated RBCs PT INR APTT Potassium Carbon Dioxide BUN Creatinine Glucose POC Glucose (mg/dL) Plasma Lactic Acid Jimbo 10.4 H* Calcium Magnesium AST Creatine Kinase 182 H Troponin I Total Protein Albumin Urine Appearance Cloudy H Urine Protein Trace H Urine RBC 12 H Hyaline Casts 8 H Urine Mucus Rare H Stool Occult Blood 07/17/21 07/17/21 07/18/21 19:04 22:27 04:57 WBC Neutrophils # (Manual) Metamyelocytes # (Man) Nucleated RBCs PT INR APTT Potassium Carbon Dioxide BUN Creatinine Glucose POC Glucose (mg/dL) Plasma Lactic Acid Jimbo 8.7 H* 6.7 H* 4.9 H* Calcium Magnesium AST Creatine Kinase Troponin I Total Protein Albumin Urine Appearance Urine Protein Urine RBC Hyaline Casts Urine Mucus Stool Occult Blood 07/18/21 07/18/21 07/18/21 04:57 09:12 12:44 WBC Neutrophils # (Manual) Metamyelocytes # (Man) Nucleated RBCs PT INR APTT Potassium 3.0 L Carbon Dioxide BUN 95 H Creatinine 3.56 H Glucose 177 H POC Glucose (mg/dL) Plasma Lactic Acid Jimbo 6.4 H* 5.3 H* Calcium 7.9 L Magnesium AST 42 H Creatine Kinase Troponin I Total Protein 4.6 L Albumin 2.0 L Urine Appearance Urine Protein Urine RBC Hyaline Casts Urine Mucus Stool Occult Blood - Diagnostic Findings Chest x-ray: image reviewed Assessment and Plan Assessment: Hypoxia, which is likely multifactorial, in part related to bilateral pneumonia, and also fluid overload. With the patient's poor mental status, aspiration should be given strong consideration. Mental status changes, currently being evaluated by the primary service. Acute kidney injury secondary to ATN. Metabolic acidosis secondary to acute kidney injury. History of hypertension. History of dementia. Hypothyroidism. Plan: Plan dated 07/18/2021. The patient is doing poorly. She's on 4 L. She should receive antibiotics in the form of Zosyn. We ordered a N-terminal proBNP and a pro-calcitonin level. She's been seen by nephrology and neurology. It's very difficult to get any his tory from this patient. We will continue to follow make recommendations where appropriate. Prognosis is poor. Time with Patient: Greater than 30
--- NOTE | 2021-07-18 16:04 | P.HPIM ---
History of Present Illness H&P Date: 07/18/21 Chief Complaint: Decreased responsiveness The following history per ER notes: This 81-year-old patient was brought by the EMS from assisted living. She was found to be unresponsive this morning. It is unknown when the patient was last seen normal. EMS found the patient to be unresponsive. She was hypoxic with oxygen level in 70s percent. Placed on 15 L nonrebreather. And patient started to become more alert. Humerus was told that the patient has a left hand weaknes s. Initial heart rate was 124. He was moving her limbs to painful stimuli in the ER. Blood glucose in the ER was 165. Stroke protocol was activated was not felt to be a TPA candidate. Patient is Dr. George told the ER physician that for last several days patient has been getting weak. There is a worker in the assisted living that it tested positive for COVID. The patient had tested negative. Patient had decreased oral intake in the last 23 days. Patient has a history of dementia thyroid disease and hiatal hernia. Patient had elevated BUN and creatinine. Sodium bicarbonate drip was started. Patient was on BiPAP. Also received some fluid bolus. When I came to smoke and see the patient. Patient is lethargic but arousable. Doesn't answer questions. Moving all limbs. Getting IV fluids Review of systems cannot be done patient rather lethargic. Past medical history: Dementia, hypothyroid, hiatal hernia Social history: Unable to obtain. Resident of jail Family history: Patient cannot tell Physical examination: VITAL SIGNS: 97, 125, 20, 125/75, 80% on room air upon presentation GENERAL: BMI 21.8, lethargic but arousable, moving limbs. EYES: Pupils equal. Conjunctiva normal. HEENT: External appearance of nose and ears normal, oral cavity dry mucous membrane. NECK: JVD not raised; masses not palpable. HEART: First and second heart sounds are normal; no edema. LUNGS: Respiratory rate normal; clear to auscultation. ABDOMEN: Soft, nontender, liver spleen not palpable, no masses palpable. PSYCH: [Lethargic, cannot be assessed l. NEUROLOGICAL: Cranial nerves grossly intact; no facial asymmetry, moving all limbs. MUSCULOSKELETAL: Evidence of OA in several joints LYMPHATICS: No lymph nodes palpable in the axilla and neck INVESTIGATIONS, reviewed in the clinical context: July 18: Sodium 142 potassium 3 BUN 95 creatinine 3.56 lactic acid 4.9 WBC 15.2 hemoglobin 13.4 platelets 243 INR 1.4 sodium 140 potassium 4.2 BUN 97 creatinine 4.02 Lactic acid 10.4 magnesium 2.4 creatinine kind is 182 troponin I 0.685 albumin 2.7 UA negative for leukoesterase and nitrite Coronavirus [PCR]: Not detected EKG tracing personally reviewed by me-normal sinus rhythm, poor R-wave progression, intraventricular block, ST-T wave changes. CT brain without contrast: No evidence of any stroke. Some increase in degree of ventriculomegaly. AIDS related changes. Consider hydrocephalus/NPH CT angiogram head and neck: Fusiform stenosis of cervical internal carotid arteries bilaterally. Chest x-ray film personally reviewed by me-bilateral infiltrates Assessment and plan: -Acute metabolic encephalopathy, likely combination of sepsis, severe renal failure from pneumonia Follow clinically -Bilateral pneumonia, suspect gram-negative organism. Suspect additional aspiration pneumonia IV Zosyn -Sepsis with lactic acidosis IV fluids -Acute hypoxic respiratory failure secondary to pneumonia Patient was put on BiPAP initially. -Acute kidney injury possibly combination of prerenal and ATN from sepsis dehydration. Poor Introl oral intake for a few days. IV fluids. Renal ultrasound. As patient is not able to eat we will do D5 0.45. -Primary osteoarthritis Pain medications as needed -Cognitive impairment from underlying Alzheimer's dementia -Hypothyroid IV Synthroid 25 g every 48 hours -DO NOT RESUSCITATE IV Zosyn. IV fluids. Fall precaution. Consult nephrology. Supplement oxygen. Aspiration precautions. Hold feeding for now until patient more awake. Past Medical History Past Medical History: Unable to Obtain History of Any Multi-Drug Resistant Organisms: Unobtainable Past Surgical History: Unable to Obtain Past Psychological History: Unable to Obtain Smoking Status: Unknown if ever smoked Past Alcohol Use History: Unable to Obtain Past Drug Use History: Unable to Obtain Medications and Allergies Home Medications Medication Instructions Recorded Confirmed Type Ascorbic Acid [Vitamin C] 500 mg PO BID@0700,1900 07/17/21 07/17/21 History Calcium Carbonate [Tums] 500 - 1,000 mg PO TID PRN 07/17/21 07/17/21 History Calcium Polycarbophil [Fiber-Lax] 625 mg PO DAILY@0700 07/17/21 07/17/21 History Cholecalciferol [Vitamin D3 (25 50 mcg PO DAILY@0700 07/17/21 07/17/21 History Mcg = 1000 Iu)] Cyanocobalamin (Vitamin B-12) 1,000 mcg PO DAILY@0700 07/17/21 07/17/21 History [Vitamin B-12] Folic Acid 1 mg PO DAILY@0700 07/17/21 07/17/21 History Furosemide [Lasix] 20 mg PO Q48H 07/17/21 07/17/21 History Lactulose 20 gm PO Q1H PRN 07/17/21 07/17/21 History Levothyroxine Sodium [Synthroid] 25 mcg PO DAILY@0700 07/17/21 07/17/21 History Liquacel 30 ml PO BID@0700,1900 07/17/21 07/17/21 History Magnesium Hydroxide [Milk of 2,400 mg PO DAILY PRN 07/17/21 07/17/21 History Magnesia] Memantine [Namenda] 10 mg PO BID@0700,1900 07/17/21 07/17/21 History Metoprolol Succinate [Toprol XL] 25 mg PO DAILY@0700 07/17/21 07/17/21 History Sennosides/Docusate Sodium [Senna 2 cap PO HS@1900 07/17/21 07/17/21 History Plus 8.6-50 mg Softgel] Zinc Sulfate [Orazinc] 220 mg PO DAILY@0700 07/17/21 07/17/21 History Allergies Allergy/AdvReac Type Severity Reaction Status Date / Time No Known Allergies Allergy Verified 07/17/21 16:56 Physical Exam Vitals: Vital Signs Temp Pulse Pulse Resp BP BP Pulse Ox 07/18/21 08:00 97.5 F L 93 19 101/78 95 07/18/21 04:00 97.5 F L 97 20 131/80 07/18/21 02:00 20 07/18/21 00:00 97.9 F 102 H 20 103/63 07/17/21 22:00 110 H 22 101/52 94 L 07/17/21 20:00 107 H 25 H 96/61 93 L 07/17/21 18:43 97.9 F 113 H 24 91/50 97 07/17/21 17:50 109 H 24 108/86 99 07/17/21 17:19 115 H 24 111/97 98 07/17/21 16:33 109 H 20 111/97 97 07/17/21 16:26 113 H 20 71/58 98 07/17/21 15:54 133 H 20 96/75 98 07/17/21 15:40 97.0 F L 125 H 20 125/75 80 L Intake and Output 07/17/21 07/18/21 07/18/21 22:59 06:59 14:59 Intake Total 840 Balance 840 Intake: Intake, IV Titration 840 Amount Dextrose 5% in Water 1, 840 000 ml @ 120 mls/hr IV . Q9H35M JONO with Sodium Bicarb (1 Meq/ml) 150 ml Rx#:[id number] Other: Weight 60.6 kg 67 kg Results CBC & Chem 7: 07/17/21 16:16 07/18/21 04:57 Labs: Abnormal Lab Results - Last 24 Hours (Table) 07/17/21 07/17/21 07/17/21 Range/Units 15:39 15:59 16:16 WBC 15.2 H (3.8-10.6) k/uL Neutrophils # (Manual) 13.50 H (1.3-7.7) k/uL Metamyelocytes # (Man) 0.15 H (0) k/uL Nucleated RBCs 5 H (0-0) /100 WBC PT (9.0-12.0) sec INR (<1.2) APTT (22.0-30.0) sec Potassium (3.5-5.1) mmol/L Carbon Dioxide (22-30) mmol/L BUN (7-17) mg/dL Creatinine (0.52-1.04) mg/dL Glucose (74-99) mg/dL POC Glucose (mg/dL) 165 H (75-99) mg/dL Plasma Lactic Acid Jimbo (0.7-2.0) mmol/L Calcium (8.4-10.2) mg/dL Magnesium (1.6-2.3) mg/dL AST (14-36) U/L Creatine Kinase (30-135) U/L Troponin I (0.000-0.034) ng/mL Total Protein (6.3-8.2) g/dL Albumin (3.5-5.0) g/dL Urine Appearance (Clear) Urine Protein (Negative) Urine RBC (0-5) /hpf Hyaline Casts (0-2) /lpf Urine Mucus (None) /hpf Stool Occult Blood Positive H (Negative) 07/17/21 07/17/21 07/17/21 Range/Units 16:16 16:16 16:16 WBC (3.8-10.6) k/uL Neutrophils # (Manual) (1.3-7.7) k/uL Metamyelocytes # (Man) (0) k/uL Nucleated RBCs (0-0) /100 WBC PT 14.3 H (9.0-12.0) sec INR 1.4 H (<1.2) APTT 17.8 L (22.0-30.0) sec Potassium (3.5-5.1) mmol/L Carbon Dioxide 15 L (22-30) mmol/L BUN 97 H (7-17) mg/dL Creatinine 4.02 H (0.52-1.04) mg/dL Glucose 193 H (74-99) mg/dL POC Glucose (mg/dL) (75-99) mg/dL Plasma Lactic Acid Jimbo (0.7-2.0) mmol/L Calcium (8.4-10.2) mg/dL Magnesium 2.4 H (1.6-2.3) mg/dL AST 38 H (14-36) U/L Creatine Kinase (30-135) U/L Troponin I 0.685 H* (0.000-0.034) ng/mL Total Protein 6.0 L (6.3-8.2) g/dL Albumin 2.7 L (3.5-5.0) g/dL Urine Appearance (Clear) Urine Protein (Negative) Urine RBC (0-5) /hpf Hyaline Casts (0-2) /lpf Urine Mucus (None) /hpf Stool Occult Blood (Negative) 07/17/21 07/17/21 07/17/21 Range/Units 16:16 16:16 16:17 WBC (3.8-10.6) k/uL Neutrophils # (Manual) (1.3-7.7) k/uL Metamyelocytes # (Man) (0) k/uL Nucleated RBCs (0-0) /100 WBC PT (9.0-12.0) sec INR (<1.2) APTT (22.0-30.0) sec Potassium (3.5-5.1) mmol/L Carbon Dioxide (22-30) mmol/L BUN (7-17) mg/dL Creatinine (0.52-1.04) mg/dL Glucose (74-99) mg/dL POC Glucose (mg/dL) (75-99) mg/dL Plasma Lactic Acid Jimbo 10.4 H* (0.7-2.0) mmol/L Calcium (8.4-10.2) mg/dL Magnesium (1.6-2.3) mg/dL AST (14-36) U/L Creatine Kinase 182 H (30-135) U/L Troponin I (0.000-0.034) ng/mL Total Protein (6.3-8.2) g/dL Albumin (3.5-5.0) g/dL Urine Appearance Cloudy H (Clear) Urine Protein Trace H (Negative) Urine RBC 12 H (0-5) /hpf Hyaline Casts 8 H (0-2) /lpf Urine Mucus Rare H (None) /hpf Stool Occult Blood (Negative) 07/17/21 07/17/21 07/18/21 Range/Units 19:04 22:27 04:57 WBC (3.8-10.6) k/uL Neutrophils # (Manual) (1.3-7.7) k/uL Metamyelocytes # (Man) (0) k/uL Nucleated RBCs (0-0) /100 WBC PT (9.0-12.0) sec INR (<1.2) APTT (22.0-30.0) sec Potassium (3.5-5.1) mmol/L Carbon Dioxide (22-30) mmol/L BUN (7-17) mg/dL Creatinine (0.52-1.04) mg/dL Glucose (74-99) mg/dL POC Glucose (mg/dL) (75-99) mg/dL Plasma Lactic Acid Jimbo 8.7 H* 6.7 H* 4.9 H* (0.7-2.0) mmol/L Calcium (8.4-10.2) mg/dL Magnesium (1.6-2.3) mg/dL AST (14-36) U/L Creatine Kinase (30-135) U/L Troponin I (0.000-0.034) ng/mL Total Protein (6.3-8.2) g/dL Albumin (3.5-5.0) g/dL Urine Appearance (Clear) Urine Protein (Negative) Urine RBC (0-5) /hpf Hyaline Casts (0-2) /lpf Urine Mucus (None) /hpf Stool Occult Blood (Negative) 07/18/21 07/18/21 Range/Units 04:57 09:12 WBC (3.8-10.6) k/uL Neutrophils # (Manual) (1.3-7.7) k/uL Metamyelocytes # (Man) (0) k/uL Nucleated RBCs (0-0) /100 WBC PT (9.0-12.0) sec INR (<1.2) APTT (22.0-30.0) sec Potassium 3.0 L (3.5-5.1) mmol/L Carbon Dioxide (22-30) mmol/L BUN 95 H (7-17) mg/dL Creatinine 3.56 H (0.52-1.04) mg/dL Glucose 177 H (74-99) mg/dL POC Glucose (mg/dL) (75-99) mg/dL Plasma Lactic Acid Jimbo 6.4 H* (0.7-2.0) mmol/L Calcium 7.9 L (8.4-10.2) mg/dL Magnesium (1.6-2.3) mg/dL AST 42 H (14-36) U/L Creatine Kinase (30-135) U/L Troponin I (0.000-0.034) ng/mL Total Protein 4.6 L (6.3-8.2) g/dL Albumin 2.0 L (3.5-5.0) g/dL Urine Appearance (Clear) Urine Protein (Negative) Urine RBC (0-5) /hpf Hyaline Casts (0-2) /lpf Urine Mucus (None) /hpf Stool Occult Blood (Negative) Microbiology - Last 24 Hours (Table) 07/17/21 17:15 Blood Culture - Final Blood 07/17/21 17:05 Blood Culture - Final Blood
[2021-07-18] MEDS: DEXTROSE 5% IN WATER 1,000 ML with SODIUM BICARB (1 MEQ/ML) 150 ML IV SCH (16:27)
[2021-07-18] MEDS ORDERED: LEVOTHYROXINE IVP 100 MCG/5 ML VIAL IV SCH (16:30)
[2021-07-18] MEDS: ENOXAPARIN 30 MG/0.3 ML SYRINGE SQ SCH (18:52)
[2021-07-18] MEDS: SODIUM CHLORIDE 0.9% 1,000 ML IV SCH (19:22)
[2021-07-18] MEDS: DEXTROSE 5%-0.45% NACL 1,000 ML IV SCH (20:30)
[2021-07-18] MEDS: PIPERACILLIN-TAZOBACTAM 3.375 GM in SODIUM CHLORIDE 0.9% 100 ML IVPB SCH (21:48)
[2021-07-18] MEDS: POTASSIUM CHLORIDE 20 MEQ in WATER FOR INJECTION 1 100ML.BAG IVPB SCH (22:42)
[2021-07-19] MEDS: POTASSIUM CHLORIDE 20 MEQ in WATER FOR INJECTION 1 100ML.BAG IVPB SCH (00:45)
--- NOTE | 2021-07-19 09:52 | P.PN ---
Subjective Patient is seen in follow for acute kidney injury. Morning labs pending. Has been waiting. Patient is incontinent. Not a reliable historian. History of dementia. Vital signs are stable. General: Resting in bed. Appears comfortable. Nonverbal. HEENT: Head exam is unremarkable. LUNGS: Breath sounds decreased. HEART: Rate and Rhythm are regular. ABDOMEN: Soft, no distention. EXTREMITITES: No edema. Objective - Vital Signs Vital signs: Vital Signs Temp 98.2 F 07/19/21 08:00 Pulse 48 L 07/19/21 08:00 Resp 16 07/19/21 08:00 BP 121/67 07/19/21 08:00 Pulse Ox 94 L 07/19/21 08:00 Intake & Output 07/18/21 07/19/21 07/19/21 18:59 06:59 18:59 Intake Total 1200 Balance 1200 Weight 78 kg Intake: Intake, IV Titration 1200 Amount Dextrose 5%-0.45% NaCl 1, 1000 000 ml @ 100 mls/hr IV . Q10H JONO Rx#:[id number] Potassium Chloride 20 meq 200 In Water For Injection 1 100ml.bag @ 50 mls/hr IVPB Q2H JONO Rx#: [id number] Other: # Voids 2 # Bowel Movements 1 - Labs CBC & Chem 7: 07/17/21 16:16 07/18/21 04:57 Labs: Abnormal Lab Results - Last 24 Hours (Table) 07/18/21 07/18/21 Range/Units 04:57 12:44 Plasma Lactic Acid Jimbo 5.3 H* (0.7-2.0) mmol/L Procalcitonin 36.10 H (0.02-0.09) ng/mL Microbiology - Last 24 Hours (Table) 07/17/21 17:15 Blood Culture Gram Stain - Preliminary Blood Blood Culture - Preliminary Staphylococcus aureus 07/17/21 17:05 Blood Culture Gram Stain - Preliminary Blood 07/17/21 17:15 Blood Culture - Final Blood 07/17/21 17:05 Blood Culture - Final Blood Assessment and Plan Plan: Assessment: 1. Acute kidney injury secondary to ATN secondary to hypotension. Patient also received IV contrast on July 17. Creatinine was 4.02 on admission and down to 3.56 yesterday. Baseline creatinine near 1. Left kidney atrophic. No hydronephrosis noted on kidney ultrasound. 2. Acute hypoxic respiratory failure. 3.. Hypokalemia from poor intake and intracellular shifting from IV bicarb. Replaced. 4. Metabolic acidosis secondary to acute kidney injury s/p bicarb drip. Improved. 5. Pneumonia on antibiotics. 6. Staph aureus bacteremia on antibiotics. Plan: Maintain half-normal saline. Follow-up morning labs. Continue to monitor renal function and urine output. Monitor for contrast-induced acute kidney injury.
--- NOTE | 2021-07-19 10:37 | CT ---
EXAMINATION TYPE: CT brain wo con DATE OF EXAM: 07/19/2021 COMPARISON: 07/17/2021 HISTORY: Altered mental status, Rule out stroke, Left sided weakness TECHNIQUE: CT scan of the head performed without can't CT DLP: 1125.4 mGycm Automated exposure control for dose reduction was used. FINDINGS: No acute intracranial hemorrhage, midline shift or mass effect. Kaur-white matter differentiation is preserved. Prominent CSF spaces and ventricles in keeping with brain volume loss. Incidental bilateral choroid plexus cysts. Atherosclerotic calcifications in the intracranial internal carotid arteries. No acute orbital, osseous or soft tissue abnormalities seen. No air-fluid levels seen in the paranasal sinuses or mastoid air cells. IMPRESSION: NO ACUTE INTRACRANIAL HEMORRHAGE MIDLINE SHIFT OR MASS EFFECT. CHRONIC CHANGES, NO SIGNIFICANT CHANGE SINCE PRIOR-SEE BODY OF REPORT.
[2021-07-19 10:48] LABS: Calcium 8.3 mg/dL (8.4-10.2); Magnesium 2.3 mg/dL (1.6-2.3); Potassium 3.8 mmol/L (3.5-5.1); Total Bilirubin 0.7 mg/dL (0.2-1.3); Total Protein 4.7 g/dL (6.3-8.2)
[2021-07-19] MEDS: PIPERACILLIN-TAZOBACTAM 3.375 GM in SODIUM CHLORIDE 0.9% 100 ML IVPB SCH ×2 (12:26→12:38)
--- NOTE | 2021-07-19 14:38 | P.PN ---
Subjective Progress Note Date: 07/19/21 The patient seen at bedside and per the patient's daughter was at bedside she is about the same. Per the patient daughter in the past she was entering on the 1 words response. And she stated that she has severe dementia. Objective - Vital Signs Vital signs: Vital Signs Temp 98.2 F 07/19/21 08:00 Pulse 99 07/19/21 12:00 Resp 16 07/19/21 12:00 BP 128/82 07/19/21 12:00 Pulse Ox 95 07/19/21 12:00 Intake & Output 07/18/21 07/19/21 07/19/21 18:59 06:59 18:59 Intake Total 1200 800 Balance 1200 800 Weight 78 kg Intake: Intake, IV Titration 1200 800 Amount Dextrose 5%-0.45% NaCl 1, 1000 800 000 ml @ 100 mls/hr IV . Q10H JONO Rx#:[id number] Potassium Chloride 20 meq 200 In Water For Injection 1 100ml.bag @ 50 mls/hr IVPB Q2H JONO Rx#: [id number] Other: # Voids 2 # Bowel Movements 1 - Exam GENERAL: The patient is lying in bed and does not seem in acute distress. NEUROLOGICAL: Limited because of her condition/cooperation. Higher mental function: The patient is drowsy but is awakeable to voice. Is mute and not attempting to verbalizing or following commands. Cranial nerves: The pupils are round, equal and reactive. Primary gaze is center. Visual moy could be assessed. EOM is tracking throughout the room and no appreciable nystagmus. No facial weakness. Otherwise rest of cranial nerves is limited. Motor: The strength is hard to assess but is withdrawling all 4 extremities to painful stimuli (at times I felt was moving the right upper more than ?left but upon lifting left upper she was able to raise). Appears possibly increase tone over left upper (but somewhat hard to assess). Normal bulk. Cerebellum: Could not assess. Sensation: Sensation to touch is hard to assess but is withdrawling to painful stimuli throughout. Reflexes (right/left): 2+ throughout. Plantars are mute bilaterally. WORK-UP: Stool occult blood was positive Ward virus PCR was not detected Ammonia level is 18. AST of brain night and ALT of 20. CT of the head is reported as no evident marriage. Suspect some interval increase in the degree of ventriculomegaly, consider hydrocephalus, normal pressure hydrocephalus. Age-related changes of atrophy and chronic small vessel ischemia. 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 There is no evidence of intracranial hemodynamic stenosis. Per the ED notes the patient last normal was unclear. Patient is not a TPA candidate since of unclear of her medical history as well as the time of onset. And a TPA risk outweighed the benefit. Repeat CT head: Reported as no acute intracranial hemorrhage or midline shift or mass effect. Chronic changes at. No significant change since prior. - Labs CBC & Chem 7: 07/17/21 16:16 07/19/21 10:09 Labs: Abnormal Lab Results - Last 24 Hours (Table) 07/18/21 07/19/21 Range/Units 04:57 10:09 Sodium 147 H (137-145) mmol/L Chloride 112 H (98-107) mmol/L BUN 95 H (7-17) mg/dL Creatinine 2.91 H (0.52-1.04) mg/dL Glucose 164 H (74-99) mg/dL Calcium 8.3 L (8.4-10.2) mg/dL AST 49 H (14-36) U/L Total Protein 4.7 L (6.3-8.2) g/dL Albumin 2.0 L (3.5-5.0) g/dL Procalcitonin 36.10 H (0.02-0.09) ng/mL Microbiology - Last 24 Hours (Table) 07/17/21 17:05 Blood Culture Gram Stain - Preliminary Blood Blood Culture - Preliminary Presumptive Staph aureus 07/17/21 17:15 Blood Culture Gram Stain - Preliminary Blood Blood Culture - Preliminary Staphylococcus aureus Presumptive Staph aureus 07/17/21 17:15 Blood Culture - Final Blood Assessment and Plan Assessment: * Altered mental status likely due to hypoxic encephalopathy due to pneumonia and component of metabolic encephalopathy. * Possible ?left upper extremity weakness/ hand weakness. Possible stroke (two CT head are negative for acute or subacute stroke). * Acute kidney insufficiency * Positive Fecal occult blood. * Advanced dementia (is oriented X0) * History of hypothyroidism Plan: She will not lie still for MRI Brain and it will not micro[employer] exchange architect (daughter is in agreement). Consider aspirin 81mg and Lipitor 10 mg qhs for secondary stroke prophylaxis (will defer use of ASA since has positive fecal occult blood) Routine EEG is pending. TSH, vitamin B-12, folate leve are pending. Every 4 hours neuro checks I will not get rest of stroke work-up since will not [employer] exchange architect. Pulmonary team is on board Nephrology team is consulted We'll defer the rest of the medical management to the primary team. Condition is very guarded. The plan is discussed with the patient's daughter (Doris) and her nurse. Leroy Maciel M.D. Neuro-hospitalist Time with Patient: Less than 30
--- NOTE | 2021-07-19 16:30 | P.PN ---
Subjective Progress Note Date: 07/19/21 Principal diagnosis: CVA. Pulmonary consult dated 07/18/2021. 81-year-old female, poorly responsive, who apparently presents to the emergency department with an altered mental status. The patient was seen in the emergency room by one of the ER physicians. The history is obtained from the note done by the ER physician. The patient was apparently found to be unresponsive the morning that she presented on the , at the assisted living facility where she resides. Apparently, her saturations were 70%. She was placed on a nonrebreather mask, and her oxygenation did improve. She apparently became more alert. She was apparently not following any commands though. It was noted that she had a slight weakness in her left hand, and some drooping of her left shoulder. Her blood glucose was not checked by EMS. Heart rate was apparently 124. I can get no additional history from the patient herself. Currently, she is on 4 L nasal cannula. Her saturations are 96%. Blood pressure 101/78. Heart rate 103, and temperature 97.5. Respiratory rate is 18 breaths per rene te. Current labs show a sodium 142, potassium 3, chlorides 107, CO2 25, anion gap 10, BUN 95, and creatinine 3.56. Glucose is 177. Lactic acid is 4.9, repeat is 6.4, and additional follow-up lactic acid is 5.3. The patient's N- terminal proBNP is 6050. Chest x-ray shows by lateral patchy infiltrates. Progress note dated 07/19/2021. 81-year-old female, seen in consultation yesterday for hypoxia, likely related to bilateral pneumonia, and fluid overload. Currently, the patient is poorly responsive. Her mental status changes are being evaluated by the primary service. She has a history of dementia, hypothyroidism, hypertension, acute kidney injury, metabolic acidosis, and mental status changes. She is currently on room air, with saturations of 95%. The rest of her vital signs are stable. Sodium 147, potassium 3.8, chlorides 112, CO2 27, anion gap 8, BUN 95, creatinine 2.91. Calcium is 8.3. Albumin 2.0. A head CT showed no acute intracranial hemorrhage midline shift or mass effect. Most of the changes were chronic in nature. Objective - Vital Signs Vital signs: Vital Signs Temp 98.2 F 07/19/21 08:00 Pulse 99 11/28/21 12:00 Resp 16 07/19/21 12:00 BP 128/82 07/19/21 12:00 Pulse Ox 95 07/19/21 12:00 Intake & Output 07/18/21 07/19/21 07/19/21 18:59 06:59 18:59 Intake Total 1200 800 Balance 1200 800 Weight 78 kg Intake: Intake, IV Titration 1200 800 Amount Dextrose 5%-0.45% NaCl 1, 1000 800 000 ml @ 100 mls/hr IV . Q10H JONO Rx#:[id number] Potassium Chloride 20 meq 200 In Water For Injection 1 100ml.bag @ 50 mls/hr IVPB Q2H JONO Rx#: [id number] Other: # Voids 2 # Bowel Movements 1 - Exam Poorly responsive, opens eyes, does not speak. No respiratory distress. Currently on room air. HEENT examination is grossly unremarkable. Neck supple. Full range of motion. No adenopathy thyromegaly or neck vein dist ention. Cardiovascular examination reveals regular rhythm rate. S1-S2 normal. No S3 or S4. No discernible murmur noted. Heart sounds are distant. Heart rate 99 bpm. Lungs reveal occasional rhonchi. No wheezes or crackles. Breath sounds equal bilaterally. She does not take deep breaths. Saturations are 94-95%. Abdomen soft bowel sounds are heard. No masses or tenderness. Extremities are intact. No cyanosis clubbing or edema. Skin is without rash or lesion. Neurologic examination is very difficult to assess. The patient's very lethargic and somnolent. She does not speak. She moves her extremities poorly. - Labs CBC & Chem 7: 07/17/21 16:16 07/19/21 10:09 Labs: Abnormal Lab Results - Last 24 Hours (Table) 07/18/21 07/19/21 Range/Units 04:57 10:09 Sodium 147 H (137-145) mmol/L Chloride 112 H (98-107) mmol/L BUN 95 H (7-17) mg/dL Creatinine 2.91 H (0.52-1.04) mg/dL Glucose 164 H (74-99) mg/dL Calcium 8.3 L (8.4-10.2) mg/dL AST 49 H (14-36) U/L Total Protein 4.7 L (6.3-8.2) g/dL Albumin 2.0 L (3.5-5.0) g/dL Procalcitonin 36.10 H (0.02-0.09) ng/mL Microbiology - Last 24 Hours (Table) 07/17/21 17:05 Blood Culture Gram Stain - Preliminary Blood Blood Culture - Preliminary Presumptive Staph aureus 07/17/21 17:15 Blood Culture Gram Stain - Preliminary Blood Blood Culture - Preliminary Staphylococcus aureus Presumptive Staph aureus Assessment and Plan Assessment: Hypoxia, which is likely multifactorial, in part related to bilateral pneumonia, and also fluid overload. With the patient's poor mental status, aspiration should be given strong consideration. Mental status changes, currently being evaluated by the primary service. Acute kidney injury secondary to ATN. Metabolic acidosis secondary to acute kidney injury. History of hypertension. History of dementia. Hypothyroidism. Plan: Plan dated 07/18/2021. The patient is doing poorly. She's on 4 L. She should receive antibiotics in the form of Zosyn. We ordered a N-terminal proBNP and a pro-calcitonin level. She's been seen by nephrology and neurology. It's very difficult to get any history from this patient. We will continue to follow make recommendations where appropriate. Prognosis is poor. Plan dated 07/19/2021. The patient is currently on Zosyn. She may have aspirated. Currently, from the respiratory status, she is stable. Her saturations are between 94-95% on room air. Her other medications are reviewed. Her mental status is currently being evaluated by the primary service. Her pro-calcitonin level was quite high. Additional recommendations and suggestions are forthcoming. Prognosis is poor. Time with Patient: Less than 30
[2021-07-19] MEDS: ENOXAPARIN 30 MG/0.3 ML SYRINGE SQ SCH (17:00)
[2021-07-19] MEDS: DEXTROSE 5%-0.45% NACL 1,000 ML IV SCH ×2 (17:43→18:38)
[2021-07-19] MEDS: DEXTROSE 5% IN WATER 1,000 ML IV SCH ×2 (18:39→21:15)
[2021-07-19] MEDS: ATORVASTATIN 10 MG TAB PO SCH (21:15)
--- NOTE | 2021-07-19 21:42 | P.PN ---
Progress Note - Text Progress Note Date: 07/19/21 Chief Complaint: Decreased responsiveness The following history per ER notes: This 81-year-old patient was brought by the EMS from assisted living. She was found to be unresponsive this morning. It is unknown when the patient was last seen normal. EMS found the patient to be unresponsive. She was hypoxic with oxygen level in 70s percent. Placed on 15 L nonrebreather. And patient started to become more alert. Humerus was told that the patient has a left hand we akness. Initial heart rate was 124. He was moving her limbs to painful stimuli in the ER. Blood glucose in the ER was 165. Stroke protocol was activated was not felt to be a TPA candidate. Daughter Doris told the ER physician that for last several days patient has been getting weak. worker in the assisted living also tested positive for COVID. The patient had tested negative. Patient had decreased oral intake in the last 2-3 days. Patient has a history of dementia thyroid disease and hiatal hernia. Patient had elevated BUN and creatinine. Sodium bicarbonate drip was started. Patient was on BiPAP. Also received some fluid bolus. When I came to see the patient.- lethargic but arousable. Doesn't answer questions. Moving all limbs. Getting IV fluids Admitted with acute metabolic encephalopathy, bilateral pneumonia, sepsis with lactic acidosis, acute hypoxic respiratory failure, acute kidney injury felt to be combination of prerenal and ATN. Started IV Zosyn fluids oxygen supplementation. July 19: Patient is bit more awake today. Rather tired. Not answering questions. Pulse oxing well 94% on room air. IV antibiotic. Review of systems cannot be done patient rather lethargic. Active Medications Acetaminophen (Acetaminophen Tab 325 Mg Tab) 650 mg PO Q6HR PRN PRN Reason: Mild Pain or Fever > 100.5 Atorvastatin Calcium (Atorvastatin 10 Mg Tab) 10 mg PO HS [facility] Last Admin: 07/19/21 21:15 Dose: Not Given Documented by: Enoxaparin Sodium (Enoxaparin 30 Mg/0.3 Ml Syringe) 30 mg SQ DAILY@1600 [facility] Last Admin: 07/19/21 17:00 Dose: 30 mg Documented by: Piperacillin Sod/Tazobactam (Sod 3.375 gm/ Sodium Chloride) 100 mls @ 25 mls/hr IVPB Q12H [facility] Last Admin: 07/19/21 12:38 Dose: 25 mls/hr Documented by: Dextrose/Water (Dextrose 5%-Water Iv Soln) 1,000 mls @ 75 mls/hr IV .[id number] [facility] Last Admin: 07/19/21 21:15 Dose: 75 mls/hr Documented by: Levothyroxine Sodium (Levothyroxine Ivp 100 Mcg/5 Ml Vial) 12.5 mcg IV Q48H [facility] Naloxone HCl (Naloxone 0.4 Mg/Ml 1 Ml Vial) 0.2 mg IV Q2M PRN PRN Reason: Opioid Reversal Ondansetron HCl (Ondansetron 4 Mg/2 Ml Vial) 4 mg IVP Q8HR PRN PRN Reason: Nausea And Vomiting Past medical history: Dementia, hypothyroid, hiatal hernia Social history: Unable to obtain. Resident of senior care Family history: Patient cannot tell Physical examination: VITAL SIGNS: Afebrile, 99, 16, 1 28 x 82, 95% room air GENERAL: Laying in bed, more awake today but tired EYES: Pupils equal. Conjunctiva normal. HEENT: External appearance of nose and ears normal, oral cavity dry mucous membrane. NECK: JVD not raised; masses not palpable. HEART: First and second heart sounds are normal; no edema. LUNGS: Respiratory rate increased; increased breath sounds. ABDOMEN: Soft, nontender, liver spleen not palpable, no masses palpable. PSYCH: [Lethargic, cannot be assessed l. MUSCULOSKELETAL: Evidence of OA in several joints INVESTIGATIONS, reviewed in the clinical context: July 19: Sodium 147 potassium 3.8. 95 creatinine 2.91 Renal ultrasound: Suboptimal study. July 18: Sodium 142 potassium 3 BUN 95 creatinine 3.56 lactic acid 4.9 WBC 15.2 hemoglobin 13.4 platelets 243 INR 1.4 sodium 140 potassium 4.2 BUN 97 creatinine 4.02 Lactic acid 10.4 magnesium 2.4 creatinine kind is 182 troponin I 0.685 albumin 2.7 UA negative for leukoesterase and nitrite Coronavirus [PCR]: Not detected EKG tracing personally reviewed by me-normal sinus rhythm, poor R-wave progression, intraventricular block, ST-T wave changes. CT brain without contrast: No evidence of any stroke. Some increase in degree of ventriculomegaly. AIDS related changes. Consider hydrocephalus/NPH CT angiogram head and neck: Fusiform stenosis of cervical internal carotid arteries bilaterally. Chest x-ray film personally reviewed by me-bilateral infiltrates Assessment and plan: -Acute metabolic encephalopathy, likely combination of sepsis, severe renal failure from pneumonia: Slow to respond Follow clinically -Bilateral pneumonia, suspect gram-negative organism. Suspect additional aspiration pneumonia IV Zosyn -Sepsis with lactic acidosis: Improving IV fluids -Acute hypoxic respiratory failure secondary to pneumonia: Improving Patient was put on BiPAP initially. Now 94% on room air -Acute kidney injury possibly combination of prerenal and ATN from sepsis dehydration. Poor Introl oral intake for a few days.: Slow to respond IV fluids. Renal ultrasound. D5 0.45. Admission creatinine 3.56. Today 2.91 -Primary osteoarthritis Pain medications as needed -Cognitive impairment from underlying Alzheimer's dementia -Hypothyroid IV Synthroid 25 g every 48 hours -DO NOT RESUSCITATE Continue IV Zosyn. IV fluids. Fall precaution. Aspiration precautions. Hold feeding for now until patient more awake.
[2021-07-20] MEDS: PIPERACILLIN-TAZOBACTAM 3.375 GM in SODIUM CHLORIDE 0.9% 100 ML IVPB SCH ×3 (05:35→23:35)
[2021-07-20] MEDS: LEVOTHYROXINE IVP 100 MCG/5 ML VIAL IV SCH (05:36)
[2021-07-20 06:52] LABS: Anisocytosis Slight; HCT 32.7 % (34.0-46.0); MCH 30.6 pg (25.0-35.0); MCHC 31.8 g/dL (31.0-37.0); MCV 96.5 fL (80.0-100.0); Mean Platelet Volume 9.3; Platelet Count 141 k/uL (150-450); RBC 3.39 m/uL (3.80-5.40)
[2021-07-20 06:53] LABS: HGB 10.4 gm/dL (11.4-16.0)
[2021-07-20 07:22] LABS: Calcium 7.8 mg/dL (8.4-10.2); Magnesium 2.2 mg/dL (1.6-2.3); Potassium 3.2 mmol/L (3.5-5.1)
[2021-07-20 10:20] LABS: Band Neutrophils % 2 %; Eosinophils # (M) 0.37 k/uL (0-0.7); Lymphocytes # (M) 0.93 k/uL (1.0-4.8); Metamyelocytes # (M) 0.19 k/uL (0); Metamyelocytes % 1 %; Monocytes # (M) 0.93 k/uL (0-1.0); Myelocytes # (M) 0.37 k/uL (0); Myelocytes % 2 %; Neutrophils % (M) 85 %; Nucleated Red Blood Cells 1 /100 WBC (0-0); Total Cells Counted 200; WBC 18.6 k/uL (3.8-10.6)
--- NOTE | 2021-07-20 10:24 | P.PN ---
Subjective Progress Note Date: 07/20/21 81-year-old female, poorly responsive, who apparently presents to the emergency department with an altered mental status. The patient was seen in the emergency room by one of the ER physicians. The history is obtained from the note done by the ER physician. The patient was apparently found to be unresponsive the morning that she presented on the , at the assisted living facility where she resides. Apparently, her saturations were 70%. She was placed on a nonrebreather mask, and her oxygenation did improve. She apparently became more alert. She was apparently not following any commands though. It was noted that she had a slight weakness in her left hand, and some drooping of her left gene ulder. Her blood glucose was not checked by EMS. Heart rate was apparently 124. I can get no additional history from the patient herself. Currently, she is on 4 L nasal cannula. Her saturations are 96%. Blood pressure 101/78. Heart rate 103, and temperature 97.5. Respiratory rate is 18 breaths per minute. Current labs show a sodium 142, potassium 3, chlorides 107, CO2 25, anion gap 10, BUN 95, and creatinine 3.56. Glucose is 177. Lactic acid is 4.9, repeat is 6.4, and additional follow-up lactic acid is 5.3. The patient's N- terminal proBNP is 6050. Chest x-ray shows by lateral patchy infiltrates. Progress note dated 07/19/2021. 81-year-old female, seen in consultation yesterday for hypoxia, likely related to bilateral pneumonia, and fluid overload. Currently, the patient is poorly responsive. Her mental status changes are being evaluated by the primary service. She has a history of dementia, hypothyroidism, hypertension, acute kidney injury, metabolic acidosis, and mental status changes. She is currently on room air, with saturations of 95%. The rest of her vital signs are stable. Sodium 147, potassium 3.8, chlorides 112, CO2 27, anion gap 8, BUN 95, creatinine 2.91. Calcium is 8.3. Albumin 2.0. A head CT showed no acute intracranial hemorrhage midline shift or mass effect. Most of the changes were chronic in nature. On 07/20/2021, the patient is being seen for a follow-up. The patient was seen initially for hypoxic respiratory failure, suspecting pneumonia. The patient remains on Zosyn. As part of further workup, the pro-calcitonin level was c hecked on the level was quite elevated at 36.1. At the same time, the patient had a proBNP level of 6000, creatinine is improving and it's down to 2.9 with a BUN of 95 and a sodium level of 147. White cell count of 15.2. The patient for now his own D5 water running at 75 mL's an hour. The patient is also on Lovenox 40 prophylaxis. The patient remains on IV Zosyn. The blood culture on came back presumptive staph aureus and the patient was given a dose of vancomycin on 07/18/2021. The patient remains afebrile. CAT scan of the brain shows no acute abnormalities and abnormalities are essentially chronic in nature. The patient has dementia, hypothyroidism and hypertension and she p resented to us with altered mentation. This was in addition to hypoxemia. From today shows a white cell count of 18.8 despite higher compared to yesterday. Hemoglobin is at 10.4. The sodium level is down to 143 with a potassium level of 3.2, creatinine is also improving is down to 2.04 as the patient is recovering from her acute kidney injury. In terms of cultures, the patient is showing staph aureus in the blood on 2 separate blood cultures as mentioned. The patient is currently on antibiotics and she is on Zosyn. IV fluids are still in the form of D5 water at the rate of 75 mL an hour. Objective - Vital Signs Vital signs: Vital Signs Temp 98.1 F 07/20/21 08:00 Pulse 106 H 07/20/21 08:00 Resp 16 07/20/21 08:00 BP 118/80 07/20/21 08:00 Pulse Ox 94 L 07/20/21 08:35 Intake & Output 07/19/21 07/20/21 07/20/21 18:59 06:59 18:59 Intake Total 800 750 Balance 800 750 Weight 90 kg Intake: Intake, IV Titration 800 750 Amount Dextrose 5% in Water 1, 225 000 ml @ 75 mls/hr IV . [id number] [facility] Rx#:[id number] Dextrose 5%-0.45% NaCl 1, 800 525 000 ml @ 100 mls/hr IV . Q10H [facility]O Rx#:[id number] Other: Voiding Method Diaper # Bowel Movements 1 - Exam Poorly responsive, opens eyes, does not speak. No respiratory distress. Currently on room air. HEENT examination is grossly unremarkable. Neck supple. Full range of motion. No adenopathy thyromegaly or neck vein distention. Cardiovascular examination reveals regular rhythm rate. S1-S2 normal. No S3 or S4. No discernible murmur noted. Heart sounds are distant. Heart rate 99 bpm. Lungs reveal occasional rhonchi. No wheezes or crackles. Breath sounds equal bilaterally. She does not take deep breaths. Saturations are 94-95%. Abdomen soft bowel sounds are heard. No masses or tenderness. Extremities are intact. No cyanosis clubbing or edema. Skin is without rash or lesion. Neurologic examination is very difficult to assess. The patient's very lethargic and somnolent. She does not speak. She moves her extremities poorly. - Labs CBC & Chem 7: 07/20/21 05:43 07/20/21 05:43 Labs: Abnormal Lab Results - Last 24 Hours (Table) 07/19/21 07/20/21 07/20/21 Range/Units 10:09 05:43 05:43 WBC 18.8 H (3.8-10.6) k/uL RBC 3.39 L (3.80-5.40) m/uL Hgb 10.4 L D (11.4-16.0) gm/dL Hct 32.7 L (34.0-46.0) % RDW 16.0 H (11.5-15.5) % Plt Count 141 L (150-450) k/uL Sodium 147 H (137-145) mmol/L Potassium 3.2 L (3.5-5.1) mmol/L Chloride 112 H 109 H (98-107) mmol/L BUN 95 H 83 H (7-17) mg/dL Creatinine 2.91 H 2.04 H (0.52-1.04) mg/dL Glucose 164 H 152 H (74-99) mg/dL Calcium 8.3 L 7.8 L (8.4-10.2) mg/dL AST 49 H (14-36) U/L Total Protein 4.7 L (6.3-8.2) g/dL Albumin 2.0 L (3.5-5.0) g/dL Microbiology - Last 24 Hours (Table) 07/17/21 17:05 Blood Culture Gram Stain - Preliminary Blood Blood Culture - Preliminary Presumptive Staph aureus 07/17/21 17:15 Blood Culture Gram Stain - Preliminary Blood Blood Culture - Preliminary Staphylococcus aureus Presumptive Staph aureus Assessment and Plan Plan: 1 Acute hypoxia, which is likely multifactorial, in part related to bilateral pneumonia, and also fluid overload. With the patient's poor mental status, aspiration should be given strong consideration. The pro-calcitonin level was quite elevated. 2 Mental status changes, currently being evaluated by the primary service. No major change in her mental status 3 Acute kidney injury secondary to ATN. The creatinine is improving and the patient's sodium level is up and it's on the rise and currently she is on D5 water. The creatinine is improving and the sodium level is also improved 4 Metabolic acidosis secondary to acute kidney injury. 5 History of hypertension. 6 History of dementia. 7 Hypothyroidism. 8 staph aureus in the blood on 2 separate blood cultures from 07/17/2021, given vancomycin. Awaiting final cultures and sensitivities. Plan: Continue monitoring the mental status The breathing is unlabored and the patient is currently on room air oxygen Continue IV Zosyn Continue D5 water supplements and monitor the creatinine Aspiration precautions Repeat chest x-ray in the morning Repeat CAT scan of the brain that was done yesterday was noted and there are no acute abnormalities. The patient barely stays one-word responses and this is related to her severe dementia.
[2021-07-20 10:39] LABS: Chol/HDL Ratio 3.01 Ratio; LDL Cholesterol,Calculated 35.1 mg/dL (0.0-131.0)
--- NOTE | 2021-07-20 12:41 | PN ---
PROGRESS NOTE Patient is seen for followup for acute kidney injury. Renal function has improved today with creatinine down to 2.0 from 4.0 on initial admission. The patient is currently maintained on IV fluids. PHYSICAL EXAMINATION: On examination today, blood pressure 118/80, heart rate 106 per minute, she is afebrile. Examination of the heart S1, S2. Examination of the lungs, decreased breath sounds at the bases. Abdomen is soft, nontender. Examination lower extremities shows no significant edema. LAB: Show sodium 143, potassium 3.2, BUN 83, serum creatinine 2.04. ASSESSMENT: 1. Acute kidney injury secondary to acute tubular necrosis from hypotension and IV contrast, currently improving. Good urine output. Patient has an atrophic left kidney. 2. Acute hypoxic respiratory failure, now improved. 3. Hypokalemia associated with decreased oral intake and intracellular shifting with IV bicarb, status post replacement. 4. Staphylococcus aureus bacteremia maintained on antibiotics. 5. Pneumonia, currently improved. 6. Metabolic acidosis associated with acute kidney injury, status post bicarb drip. PLAN: Continue to monitor urine output. Repeat labs in a.m. Continue with the D5W for now. MMODL / IJN: [id number] /
--- NOTE | 2021-07-20 13:23 | P.GSCN ---
History of Present Illness Consult date: 07/20/21 History of present illness: CHIEF COMPLAINT: GI bleed HISTORY OF PRESENT ILLNESS: This is a 81-year-old female presented to the hospital with altered mental status changes and episode of unresponsiveness. Patient remains confused and does have a known history of severe dementia and nonverbal per nursing staff. Her CODE STATUS is no code. Patient is also being treated for bilateral pneumonia and fluid overload. Surgical service was consult of regards to one episode of bloody stool. Per nursing staff patient had one of bloody stool yesterday. Since then has had no further episodes of bleeding. Hemoglobin did drop from 13-10.4. She has received fluids. Rashawn figueroa's not on any anticoagulation. Patient's History Was Obtained from Chart and Nursing Staff. PAST MEDICAL HISTORY: See list. PAST SURGICAL HISTORY: See list. MEDICATIONS: See list. ALLERGIES: See list. SOCIAL HISTORY: No illicit drug use. REVIEW OF SYSTEMS: CONSTITUTIONAL: Denies fever or chills. HEENT: Denies blurred vision, vision changes, or eye pain. Denies hemoptysis ENDOCRINE: Denies heat or cold intolerance. CARDIOVASCULAR: Denies chest pain or pressure. RESPIRATORY: No shortness of breath. GASTROINTESTINAL: Denies abdominal pain. Denies nausea or vomiting. NEURO: Denies history of seizures. PSYCH: No depression or suicidal ideation HEMATOLOGIC: Denies bleeding disorders. LYMPHATIC: The patient denies any lumps and bumps around the neck. GENITOURINARY: Denies any blood in urine or increased urinary frequency. MUSCULOSKELETAL: Denies myalgias. Denies joint swelling. Denies decreased range of motion beyond patients baseline. SKIN: Denies pruitis. Denies rash. PHYSICAL EXAM: VITAL SIGNS: Reviewed GENERAL: Well-developed in no acute distress. HEENT: No sclera icterus. Extraocular movements grossly intact. Moist buccal mucosa. Head is atraumatic, normocephalic. Hears conversational speech. No nasal drainage. NECK: Supple without lymphadenopathy. CHEST: Non-labored respirations and equal bilateral excursions. CARDIOVASCULAR: Palpable 2+ radial pulses. ABDOMEN: Soft. Nondistended. Nontender MUSCULOSKELETAL: No clubbing or cyanosis. NEUROLOGIC: No focal or lateralizing signs. Cranial nerves II through XII grossly intact. PSYCH: Appropriate affect. Awake and alert. Pleasantly confused. SKIN: Well perfused. Good skin turgor. LABORATORY DATA: WBC 18.6 Hgb 10.4 platelets 141 Sodium 143 potassium 3.2 BUN 83 creatinine 2.04 Stool for occult blood positive Blood culture positive with Staphylococcus aureus IMAGING: Computed tomography scan of brain no acute intracranial hemorrhage or midline shift or mass effect. Chronic changes. No significant change since prior CAT scan Abdominal ultrasound suboptimal study without hydronephrosis ASSESSMENT: 1. Acute GI bleed with one episode of blood present in stool 2. Anemia 3. Hypokalemia 4. Pneumonia 5. Fluid overload 6. Bacteremia with staph aureus 7. Acute kidney injury 8. Altered mental status changes 9. Severe dementia PLAN: -Continue conservative management -Continue supportive care -No plan for endoscopies at this time -Continue to monitor for signs or symptoms of bleeding -Continue to monitor hemoglobin -Patient receiving potassium supplement -Okay to start clear liquid diet from surgical standpoint once evaluated by speech therapy for swallow evaluation Thank you for this consultation Physician Cold Roll Packer [employer] note has been reviewed by physician. Signing provider agrees with the documented findings, assessment, and plan of care. Past Medical History Past Medical History: Unable to Obtain Additional Past Medical History / Comment(s): history obtained from daughter History of Any Multi-Drug Resistant Organisms: Unobtainable Past Surgical History: Unable to Obtain Past Anesthesia/Blood Transfusion Reactions: No Reported Reaction Past Psychological History: Unable to Obtain Smoking Status: Unknown if ever smoked Past Alcohol Use History: Unable to Obtain Past Drug Use History: Unable to Obtain Medications and Allergies Home Medications Medication Instructions Recorded Confirmed Type Ascorbic Acid [Vitamin C] 500 mg PO BID@0700,1900 07/17/21 07/17/21 History Calcium Carbonate [Tums] 500 - 1,000 mg PO TID PRN 07/17/21 07/17/21 History Calcium Polycarbophil [Fiber-Lax] 625 mg PO DAILY@0700 07/17/21 07/17/21 History Cholecalciferol [Vitamin D3 (25 50 mcg PO DAILY@0700 07/17/21 07/17/21 History Mcg = 1000 Iu)] Cyanocobalamin (Vitamin B-12) 1,000 mcg PO DAILY@0700 07/17/21 07/17/21 History [Vitamin B-12] Folic Acid 1 mg PO DAILY@0700 07/17/21 07/17/21 History Furosemide [Lasix] 20 mg PO Q48H 07/17/21 07/17/21 History Lactulose 20 gm PO Q1H PRN 07/17/21 07/17/21 History Levothyroxine Sodium [Synthroid] 25 mcg PO DAILY@0700 07/17/21 07/17/21 History Liquacel 30 ml PO BID@0700,1900 07/17/21 07/17/21 History Magnesium Hydroxide [Milk of 2,400 mg PO DAILY PRN 07/17/21 07/17/21 History Magnesia] Memantine [Namenda] 10 mg PO BID@0700,19007/17/21 07/17/21 History Metoprolol Succinate [Toprol XL] 25 mg PO DAILY@0700 07/17/21 07/17/21 History Sennosides/Docusate Sodium [Senna 2 cap PO HS@189907/17/21 07/17/21 History Plus 8.6-50 mg Softgel] Zinc Sulfate [Orazinc] 220 mg PO DAILY@0700 07/17/21 07/17/21 History Allergies Allergy/AdvReac Type Severity Reaction Status Date / Time No Known Allergies Allergy Verified 07/17/21 16:56 Surgical - Exam Vital Signs Temp Pulse Resp BP Pulse Ox 97.0 F L 125 H 20 125/75 80 L 07/17/21 15:40 07/17/21 15:40 07/17/21 15:40 07/17/21 15:40 07/17/21 15:40 Results - Labs 07/20/21 05:43 07/20/21 05:43 Abnormal Lab Results - Last 24 Hours (Table) 07/19/21 07/20/21 07/20/21 Range/Units 10:09 05:43 05:43 WBC 18.6 H (3.8-10.6) k/uL RBC 3.39 L (3.80-5.40) m/uL Hgb 10.4 L D (11.4-16.0) gm/dL Hct 32.7 L (34.0-46.0) % RDW 16.0 H (11.5-15.5) % Plt Count 141 L (150-450) k/uL Neutrophils # (Manual) 16.10 H (1.3-7.7) k/uL Lymphocytes # (Manual) 0.93 L (1.0-4.8) k/uL Metamyelocytes # (Man) 0.19 H (0) k/uL Myelocytes # (Manual) 0.37 H (0) k/uL Nucleated RBCs 1 H (0-0) /100 WBC Potassium 3.2 L (3.5-5.1) mmol/L Chloride 109 H (98-107) mmol/L BUN 83 H (7-17) mg/dL Creatinine 2.04 H (0.52-1.04) mg/dL Glucose 152 H (74-99) mg/dL Calcium 7.8 L (8.4-10.2) mg/dL HDL Cholesterol 27.90 L (40.00-60.00) mg/dL Microbiology - Last 24 Hours (Table) 07/17/21 17:05 Blood Culture Gram Stain - Preliminary Blood Blood Culture - Preliminary Presumptive Staph aureus 07/17/21 17:15 Blood Culture Gram Stain - Preliminary Blood Blood Culture - Preliminary Staphylococcus aureus Presumptive Staph aureus Diabetes panel 07/19/21 07/20/21 Range/Units 10:09 05:43 Sodium 143 (137-145) mmol/L Potassium 3.2 L (3.5-5.1) mmol/L Chloride 109 H (98-107) mmol/L Carbon Dioxide 22 (22-30) mmol/L BUN 83 H (7-17) mg/dL Creatinine 2.04 H (0.52-1.04) mg/dL Glucose 152 H (74-99) mg/dL Calcium 7.8 L (8.4-10.2) mg/dL Triglycerides 105.00 (0.00-149.00) mg/dL HDL Cholesterol 27.90 L (40.00-60.00) mg/dL Thyroid panel 07/18/21 Range/Units 04:57 TSH 5.020 (0.350-5.500) uIU/mL Calcium panel 07/20/21 Range/Units 05:43 Calcium 7.8 L (8.4-10.2) mg/dL Pituitary panel 07/18/21 07/20/21 Range/Units 04:57 05:43 Sodium 143 (137-145) mmol/L Potassium 3.2 L (3.5-5.1) mmol/L Chloride 109 H (98-107) mmol/L Carbon Dioxide 22 (22-30) mmol/L BUN 83 H (7-17) mg/dL Creatinine 2.04 H (0.52-1.04) mg/dL Glucose 152 H (74-99) mg/dL Calcium 7.8 L (8.4-10.2) mg/dL TSH 5.020 (0.350-5.500) uIU/mL Adrenal panel 07/20/21 Range/Units 05:43 Sodium 143 (137-145) mmol/L Potassium 3.2 L (3.5-5.1) mmol/L Chloride 109 H (98-107) mmol/L Carbon Dioxide 22 (22-30) mmol/L BUN 83 H (7-17) mg/dL Creatinine 2.04 H (0.52-1.04) mg/dL Glucose 152 H (74-99) mg/dL Calcium 7.8 L (8.4-10.2) mg/dL
--- NOTE | 2021-07-20 14:00 | EEG ---
ELECTROENCEPHALOGRAM REPORT DATE OF SERVICE: 07/20/2021 PREAMBLE: This is an 81-year-old female with dementia, with altered mental status. This study is performed to evaluate for any epileptiform activity. EEG FINDINGS: This is a 21-channel digital EEG with video component, utilizing 10/20 international system with referential and bipolar montages. Background consists of moderately well- developed and regulated, somewhat disorganized, mixed frequencies of low-voltage theta, intermixed with some moderate amplitude delta activity seen in bihemispheric region. Very significant myogenic artifacts were seen during most of the recording. Different stages of sleep were not seen. No focal or generalized epileptiform activity was seen. Photic stimulation and hyperventilation were not done. IMPRESSION: This is an abnormal EEG due to background disorganization and slowing of mild to moderate degree. This is suggestive of generalized cerebral dysfunction as can be seen with encephalopathy related to metabolic, vascular or degenerative causes. No epileptiform activity was seen. MMNATASHAL / DEISYN: [id number] /
[2021-07-20] MEDS: POTASSIUM CHLORIDE 10 MEQ in WATER FOR INJECTION 1 100ML.BAG IVPB SCH ×4 (14:21→18:42)
[2021-07-20] MEDS: ENOXAPARIN 30 MG/0.3 ML SYRINGE SQ SCH (15:19)
[2021-07-20] MEDS: DEXTROSE 5% IN WATER 1,000 ML IV SCH (15:23)
--- NOTE | 2021-07-20 16:39 | P.PN ---
Progress Note - Text Progress Note Date: 07/20/21 Chief Complaint: Decreased responsiveness The following history per ER notes: This 81-year-old patient was brought by the EMS from assisted living. She was found to be unresponsive this morning. It is unknown when the patient was last seen normal. EMS found the patient to be unresponsive. She was hypoxic with oxygen level in 70s percent. Placed on 15 L nonrebreather. And patient started to become more alert. Humerus was told that the patient has a left hand we akness. Initial heart rate was 124. He was moving her limbs to painful stimuli in the ER. Blood glucose in the ER was 165. Stroke protocol was activated was not felt to be a TPA candidate. Daughter Doris told the ER physician that for last several days patient has been getting weak. worker in the assisted living also tested positive for COVID. The patient had tested negative. Patient had decreased oral intake in the last 2-3 days. Patient has a history of dementia thyroid disease and hiatal hernia. Patient had elevated BUN and creatinine. Sodium bicarbonate drip was started. Patient was on BiPAP. Also received some fluid bolus. When I came to see the patient.- lethargic but arousable. Doesn't answer questions. Moving all limbs. Getting IV fluids Admitted with acute metabolic encephalopathy, bilateral pneumonia, sepsis with lactic acidosis, acute hypoxic respiratory failure, acute kidney injury felt to be combination of prerenal and ATN. Started IV Zosyn fluids oxygen supplementation. July 19: Patient is bit more awake today. Rather tired. Not answering questions. Pulse oxing well 94% on room air. IV antibiotic. July 20: Overnight patient had one large bloody bowel movement. Awake. Tired. No pain. Surgery consulted Review of systems cannot be done patient rather lethargic. Active Medications Acetaminophen (Acetaminophen Tab 325 Mg Tab) 650 mg PO Q6HR PRN PRN Reason: Mild Pain or Fever > 100.5 Atorvastatin Calcium (Atorvastatin 10 Mg Tab) 10 mg PO HS JONO Last Admin: 07/19/21 21:15 Dose: Not Given Documented by: Enoxaparin Sodium (Enoxaparin 30 Mg/0.3 Ml Syringe) 30 mg SQ DAILY@1600 JONO Last Admin: 07/20/21 15:19 Dose: Not Given Documented by: Dextrose/Water (Dextrose 5%-Water Iv Soln) 1,000 mls @ 75 mls/hr IV .[id number] [facility] Last Admin: 07/20/21 15:23 Dose: 75 mls/hr Documented by: Piperacillin Sod/Tazobactam (Sod 3.375 gm/ Sodium Chloride) 100 mls @ 25 mls/hr IVPB Q8HR [facility] Last Admin: 07/20/21 15:19 Dose: 25 mls/hr Documented by: Potassium Chloride 10 meq/ IV (Solution) 100 mls @ 100 mls/hr IVPB Q1HR [facility]; Protocol Stop: 07/20/21 17:59 Last Admin: 07/20/21 15:09 Dose: 100 mls/hr Documented by: Levothyroxine Sodium (Levothyroxine Ivp 100 Mcg/5 Ml Vial) 12.5 mcg IV Q48H [facility] Last Admin: 07/20/21 05:36 Dose: 12.5 mcg Documented by: Naloxone HCl (Naloxone 0.4 Mg/Ml 1 Ml Vial) 0.2 mg IV Q2M PRN PRN Reason: Opioid Reversal Ondansetron HCl (Ondansetron 4 Mg/2 Ml Vial) 4 mg IVP Q8HR PRN PRN Reason: Nausea And Vomiting Past medical history: Dementia, hypothyroid, hiatal hernia Social history: Unable to obtain. Resident of long term Family history: Patient cannot tell Physical examination: VITAL SIGNS: 98.1, 106, 16, 11 8/80, 94% on room air GENERAL: Laying in bed, but awake but tired EYES: Pupils equal. Conjunctiva normal. HEENT: External appearance of nose and ears normal, oral cavity dry mucous membrane. NECK: JVD not raised; masses not palpable. HEART: First and second heart sounds are normal; no edema. LUNGS: Respiratory rate increased; increased breath sounds. ABDOMEN: Soft, nontender, liver spleen not palpable, no masses palpable. PSYCH: Not really answering questions l. MUSCULOSKELETAL: Evidence of OA in several joints INVESTIGATIONS, reviewed in the clinical context: July 20: White count 18.6 hemoglobin 10.4 platelets 144 sodium 143 progression 3.2 BUN 83 creatinine 2.04 EEG: Negative for epileptiform activity. Suggestive of encephalopathy. July 19: Sodium 147 potassium 3.8. 95 creatinine 2.91 Renal ultrasound: Suboptimal study. July 18: Sodium 142 potassium 3 BUN 95 creatinine 3.56 lactic acid 4.9 WBC 15.2 hemoglobin 13.4 platelets 243 INR 1.4 sodium 140 potassium 4.2 BUN 97 creatinine 4.02 Lactic acid 10.4 magnesium 2.4 creatinine kind is 182 troponin I 0.685 albumin 2.7 UA negative for leukoesterase and nitrite Coronavirus [PCR]: Not detected EKG tracing personally reviewed by me-normal sinus rhythm, poor R-wave progression, intraventricular block, ST-T wave changes. CT brain without contrast: No evidence of any stroke. Some increase in degree of ventriculomegaly. AIDS related changes. Consider hydrocephalus/NPH CT angiogram head and neck: Fusiform stenosis of cervical internal carotid arteries bilaterally. Chest x-ray film personally reviewed by me-bilateral infiltrates Assessment and plan: -Acute metabolic encephalopathy, likely combination of sepsis, severe renal failure from pneumonia: Slow to respond Follow clinically -Bilateral pneumonia, suspect gram-negative organism. Suspect additional aspiration pneumonia IV Zosyn -Sepsis with lactic acidosis: Improving IV fluids -Acute hypoxic respiratory failure secondary to pneumonia: Better Patient was put on BiPAP initially. Now 94% on room air -Acute kidney injury possibly combination of prerenal and ATN from sepsis dehydration. Poor Introl oral intake for a few days.: Slow to respond IV fluids. Renal ultrasound. D5 0.45. Admission creatinine 3.56. Today 2. 04 -Acute GI bleed with one episode of bloody bowel movement Follow H&H. PERRLA surgery no current intervention. -Primary osteoarthritis Pain medications as needed -Cognitive impairment from underlying Alzheimer's dementia -Hypothyroid IV Synthroid 25 g every 48 hours -DO NOT RESUSCITATE Continue IV Zosyn. IV fluids. GI consulted-patient started on clear liquids..PPI
--- NOTE | 2021-07-20 17:48 | P.PN ---
Subjective Progress Note Date: 07/20/21 Patient was seen for a follow-up. Patient initially seen by Dr. Leroy Maciel. Please refer to his note for details. Patient is an 81-year-old female, who came with questionable left-sided weakness. Patient has advanced dementia. She is at baseline alert and oriented 0. She only gives one to 2 words answers. Patient's daughter was also present. Patient currently on Namenda 10 mg twice a day. She does not remember if patient has ever been on Aricept. Patient also has developed sepsis because of Staphylococcus aureus in the blood cultures times twice. Patient also has developed GI bleed for which patient was seen by Gen. surgery. No plans for upper or lower endoscopy. Objective - Vital Signs Vital signs: Vital Signs Temp 98.1 F 07/20/21 08:00 Pulse 112 H 07/20/21 15:30 Resp 16 07/20/21 15:30 BP 114/69 07/20/21 15:30 Pulse Ox 93 L 07/20/21 15:30 Intake & Output 07/19/21 07/20/21 07/20/21 18:59 06:59 18:59 Intake Total 602 130 8178 Balance 078 272 7893 Weight 90 kg Intake: Intake, IV Titration 525 161 5754 Amount Dextrose 5% in Water 1, 225 600 000 ml @ 75 mls/hr IV . [id number] JONO Rx#:[id number] Dextrose 5%-0.45% NaCl 1, 800 525 000 ml @ 100 mls/hr IV . Q10H JONO Rx#:[id number] Piperacillin-Tazobactam 3 100 .375 gm In Sodium Chloride 0.9% 100 ml @ 25 mls/hr IVPB Q8HR JONO Rx# :[id number] Potassium Chloride 10 meq 400 In Water For Injection 1 100ml.bag @ 100 mls/hr IVPB Q1HR JONO Rx#: [id number] Other: Voiding Method Diaper Diaper # Bowel Movements 1 - Exam Patient is slightly somnolent. She does open her eyes. She makes minimal eye contact. Patient does not speak any words, not name any object. Patient's daughter has mentioned that she has not said anything to anyone. Her baseline is she only speaks one or 2 words answers related to dementia. Patient's face is symmetric. Pupils are round and reacting. Extraocular muscles appears intact. Patient's tone is equal in both arms. On manually lifting it up, both arms she brings it down slowly and equally. No obvious focality. - Labs CBC & Chem 7: 07/20/21 05:43 07/20/21 05:43 Labs: Abnormal Lab Results - Last 24 Hours (Table) 07/19/21 07/20/21 07/20/21 Range/Units 10:09 05:43 05:43 WBC 18.6 H (3.8-10.6) k/uL RBC 3.39 L (3.80-5.40) m/uL Hgb 10.4 L D (11.4-16.0) gm/dL Hct 32.7 L (34.0-46.0) % RDW 16.0 H (11.5-15.5) % Plt Count 141 L (150-450) k/uL Neutrophils # (Manual) 16.10 H (1.3-7.7) k/uL Lymphocytes # (Manual) 0.93 L (1.0-4.8) k/uL Metamyelocytes # (Man) 0.19 H (0) k/uL Myelocytes # (Manual) 0.37 H (0) k/uL Nucleated RBCs 1 H (0-0) /100 WBC Potassium 3.2 L (3.5-5.1) mmol/L Chloride 109 H (98-107) mmol/L BUN 83 H (7-17) mg/dL Creatinine 2.04 H (0.52-1.04) mg/dL Glucose 152 H (74-99) mg/dL Calcium 7.8 L (8.4-10.2) mg/dL HDL Cholesterol 27.90 L (40.00-60.00) mg/dL Microbiology - Last 24 Hours (Table) 07/17/21 17:05 Blood Culture Gram Stain - Final Blood Blood Culture - Final Staphylococcus aureus 07/17/21 17:15 Blood Culture Gram Stain - Final Blood Blood Culture - Final Staphylococcus aureus Assessment and Plan Assessment: * Altered mental status likely due to hypoxic/toxic metabolic encephalopathy due to pneumonia and bacteremia/sepsis. * Possible ?left upper extremity weakness/ hand weakness. Possible stroke (two CT head are negative for acute or subacute stroke). * Acute kidney insufficiency * Positive Fecal occult blood. * Advanced dementia (is oriented X0) * History of hypothyroidism Plan: * Patient's altered mental status is likely related to toxic metabolic enc ephalopathy. Hopefully her encephalopathy will improve once bacteremia and other medical conditions, under control. However with her severe dementia, acute infections needs to clinical setback, and patient may not regain functional recovery back to baseline. * Suggest resuming aspirin 81 mg daily as early as cleared by IM/general surgery. * Continue Lipitor 10 mg at bedtime. Lipid panel with cholesterol 84, LDL 35, HDL 27 and triglycerides 105. * B12 842, folate 6.5, TSH 5.02. We will start folate replacement. * Patient on Lovenox for DVT prophylaxis. * Pulmonary team is on board * Nephrology team is consulted * We'll defer the rest of the medical management to the primary team. * We will follow sporadically. Recent tests: Stool occult blood was positive Ward virus PCR was not detected Ammonia level is 18. CT of the head is reported as no evident marriage. Suspect some interval increase in the degree of ventriculomegaly, consider hydrocephalus, normal press ure hydrocephalus. Age-related changes of atrophy and chronic small vessel ischemia. 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 There is no evidence of intracranial hemodynamic stenosis. Per the ED notes the patient last normal was unclear. Patient is not a TPA candidate since of unclear of her medical history as well as the time of onset. And a TPA risk outweighed the benefit. Repeat CT head: Reported as no acute intracranial hemorrhage or midline shift or mass effect. Chronic changes at. No significant change since prior.
[2021-07-20] MEDS: FOLIC ACID 1 MG TAB PO SCH (18:46)
[2021-07-20] MEDS: ATORVASTATIN 10 MG TAB PO SCH (20:26)
[2021-07-20] MEDS: PANTOPRAZOLE 40 MG/10 ML VIAL IVP SCH (20:56)
[2021-07-21] MEDS: DEXTROSE 5% IN WATER 1,000 ML IV SCH ×2 (05:51→20:51)
[2021-07-21 07:50] LABS: Calcium 8.1 mg/dL (8.4-10.2); Potassium 3.8 mmol/L (3.5-5.1)
[2021-07-21 07:53] LABS: HCT 32.6 % (34.0-46.0); HGB 10.3 gm/dL (11.4-16.0); MCHC 31.6 g/dL (31.0-37.0); MCV 98.3 fL (80.0-100.0); Macrocytosis Slight; Platelet Count 109 k/uL (150-450); RBC 3.32 m/uL (3.80-5.40); RDW 15.8 % (11.5-15.5); WBC 19.3 k/uL (3.8-10.6)
--- NOTE | 2021-07-21 08:11 | XR ---
EXAMINATION TYPE: XR chest 1V portable DATE OF EXAM: 07/21/2021 COMPARISON: 07/17/2021 HISTORY: Shortness of breath TECHNIQUE: Single frontal view of the chest is obtained. FINDINGS: Bilateral interstitial and alveolar patchy infiltrate and small pleural effusion. Heart si ze normal. No pneumothorax. Apical pleural thickening stable. Diffuse osteopenia and arthropathy shou lders. More nodular area of consolidation left lung and there are surgical clips overlying the left h emithorax. IMPRESSION: Stable interstitial and alveolar areas of infiltrate correlate for multifocal pneumonia was superimposed interstitial pneumonitis. Follow-up to resolution to exclude underlying mass left up per lobe.
[2021-07-21] MEDS: PIPERACILLIN-TAZOBACTAM 3.375 GM in SODIUM CHLORIDE 0.9% 100 ML IVPB SCH ×3 (09:02→23:00)
[2021-07-21] MEDS: FOLIC ACID 1 MG TAB PO SCH (09:02)
[2021-07-21] MEDS: PANTOPRAZOLE 40 MG/10 ML VIAL IVP SCH ×2 (09:02→20:43)
[2021-07-21 09:20] LABS: Band Neutrophils % 1 %; Eosinophils # (M) 0.19 k/uL (0-0.7); Lymphocytes # (M) 1.74 k/uL (1.0-4.8); Metamyelocytes # (M) 0.58 k/uL (0); Metamyelocytes % 3 %; Monocytes # (M) 0.58 k/uL (0-1.0); Myelocytes # (M) 0.58 k/uL (0); Myelocytes % 3 %; Neutrophils % (M) 82 %; Nucleated Red Blood Cells 0 /100 WBC (0-0); Total Cells Counted 200
--- NOTE | 2021-07-21 10:52 | P.PN ---
Subjective Progress Note Date: 07/21/21 81-year-old female, poorly responsive, who apparently presents to the emergency department with an altered mental status. The patient was seen in the emergency room by one of the ER physicians. The history is obtained from the note done by the ER physician. The patient was apparently found to be unresponsive the morning that she presented on the , at the assisted living facility where she resides. Apparently, her saturations were 70%. She was placed on a nonrebreather mask, and her oxygenation did improve. She apparently became more alert. She was apparently not following any commands though. It was noted that she had a slight weakness in her left hand, and some drooping of her left gene ulder. Her blood glucose was not checked by EMS. Heart rate was apparently 124. I can get no additional history from the patient herself. Currently, she is on 4 L nasal cannula. Her saturations are 96%. Blood pressure 101/78. Heart rate 103, and temperature 97.5. Respiratory rate is 18 breaths per minute. Current labs show a sodium 142, potassium 3, chlorides 107, CO2 25, anion gap 10, BUN 95, and creatinine 3.56. Glucose is 177. Lactic acid is 4.9, repeat is 6.4, and additional follow-up lactic acid is 5.3. The patient's N- terminal proBNP is 6050. Chest x-ray shows by lateral patchy infiltrates. Progress note dated 07/19/2021. 81-year-old female, seen in consultation yesterday for hypoxia, likely related to bilateral pneumonia, and fluid overload. Currently, the patient is poorly responsive. Her mental status changes are being evaluated by the primary service. She has a history of dementia, hypothyroidism, hypertension, acute kidney injury, metabolic acidosis, and mental status changes. She is currently on room air, with saturations of 95%. The rest of her vital signs are stable. Sodium 147, potassium 3.8, chlorides 112, CO2 27, anion gap 8, BUN 95, creatinine 2.91. Calcium is 8.3. Albumin 2.0. A head CT showed no acute intracranial hemorrhage midline shift or mass effect. Most of the changes were chronic in nature. On 07/20/2021, the patient is being seen for a follow-up. The patient was seen initially for hypoxic respiratory failure, suspecting pneumonia. The patient remains on Zosyn. As part of further workup, the pro-calcitonin level was c hecked on the level was quite elevated at 36.1. At the same time, the patient had a proBNP level of 6000, creatinine is improving and it's down to 2.9 with a BUN of 95 and a sodium level of 147. White cell count of 15.2. The patient for now his own D5 water running at 75 mL's an hour. The patient is also on Lovenox 40 prophylaxis. The patient remains on IV Zosyn. The blood culture on came back presumptive staph aureus and the patient was given a dose of vancomycin on 07/18/2021. The patient remains afebrile. CAT scan of the brain shows no acute abnormalities and abnormalities are essentially chronic in nature. The patient has dementia, hypothyroidism and hypertension and she p resented to us with altered mentation. This was in addition to hypoxemia. From today shows a white cell count of 18.8 despite higher compared to yesterday. Hemoglobin is at 10.4. The sodium level is down to 143 with a potassium level of 3.2, creatinine is also improving is down to 2.04 as the patient is recovering from her acute kidney injury. In terms of cultures, the patient is showing staph aureus in the blood on 2 separate blood cultures as mentioned. The patient is currently on antibiotics and she is on Zosyn. IV fluids are still in the form of D5 water at the rate of 75 mL an hour. 32,021, I'm seeing this patient for a follow-up. Noted the patient was being treated for bilateral pneumonia. She had a significantly elevated protein calcitonin level and the patient's also had some leukocytosis and she was covered with IV Zosyn. The patient had blood culture that came back presumptive staph aureus and the patient was given a dose of vancomycin. She subsequently was found to have MSSA in her blood on 2 separate blood cultures. She is currently on IV Zosyn which has adequate coverage for MSSA. She is currently on room air oxygen. She is taking Lovenox for DVT prophylaxis. She has a congested cough. Breathing is nonlabored. In terms of her blood work, her renal function is improving and the creatinine is down to 2.07 from as high as 4, electrolytes are all within normal limits. The patient remains on D5 water at the rate of 75 mL an hour. No other significant events overnight. She is sitting up comfortably on the recliner. She does not communicate due to her advanced dementia. Objective - Vital Signs Vital signs: Vital Signs Temp 98.4 F 07/21/21 04:00 Pulse 69 07/21/21 08:00 Resp 16 07/21/21 08:00 BP 113/59 07/21/21 08:00 Pulse Ox 95 07/21/21 08:00 Intake & Output 07/20/21 07/21/21 07/21/21 18:59 06:59 18:59 Intake Total 1100 1000 Balance 1100 1000 Intake: Intake, IV Titration 1100 1000 Amount Dextrose 5% in Water 1, 600 900 000 ml @ 75 mls/hr IV . [id number] [facility] Rx#:[id number] Piperacillin-Tazobactam 3 100 100 .375 gm In Sodium Chloride 0.9% 100 ml @ 25 mls/hr IVPB Q8HR [facility] Rx# :[id number] Potassium Chloride 10 meq 400 In Water For Injection 1 100ml.bag @ 100 mls/hr IVPB Q1HR [facility] Rx#: [id number] Other: Voiding Method Diaper Diaper Diaper # Voids 1 # Bowel Movements 1 - Exam Poorly responsive, opens eyes, does not speak. No respiratory distress. Currently on room air. HEENT examination is grossly unremarkable. Neck supple. Full range of motion. No adenopathy thyromegaly or neck vein distention. Cardiovascular examination reveals regular rhythm rate. S1-S2 normal. No S3 or S4. No discernible murmur noted. Heart sounds are distant. Heart rate 99 bpm. Lungs reveal occasional rhonchi. No wheezes or crackles. Breath sounds equal bilaterally. She does not take deep breaths. Saturations are 94-95%. Abdomen soft bowel sounds are heard. No masses or tenderness. Extremities are intact. No cyanosis clubbing or edema. Skin is without rash or lesion. Neurologic examination is very difficult to assess. The patient's very lethargic and somnolent. She does not speak. She moves her extremities poorly. - Labs CBC & Chem 7: 07/21/21 06:40 07/21/21 06:40 Labs: Abnormal Lab Results - Last 24 Hours (Table) 07/21/21 07/21/21 Range/Units 06:40 06:40 WBC 19.3 H (3.8-10.6) k/uL RBC 3.32 L (3.80-5.40) m/uL Hgb 10.3 L (11.4-16.0) gm/dL Hct 32.6 L (34.0-46.0) % RDW 15.8 H (11.5-15.5) % Plt Count 109 L (150-450) k/uL Neutrophils # (Manual) 16.00 H (1.3-7.7) k/uL Metamyelocytes # (Man) 0.58 H (0) k/uL Myelocytes # (Manual) 0.58 H (0) k/uL Chloride 110 H (98-107) mmol/L BUN 69 H (7-17) mg/dL Creatinine 2.07 H (0.52-1.04) mg/dL Glucose 137 H (74-99) mg/dL Calcium 8.1 L (8.4-10.2) mg/dL Microbiology - Last 24 Hours (Table) 07/17/21 17:05 Blood Culture Gram Stain - Final Blood Blood Culture - Final Staphylococcus aureus 07/17/21 17:15 Blood Culture Gram Stain - Final Blood Blood Culture - Final Staphylococcus aureus Assessment and Plan Plan: 1 staphylococcal pneumonia and possible culture with MSSA. The patient had Acute hypoxia, which is likely multifactorial, in part related to bilateral pneumonia, and also fluid overload. With the patient's poor mental status, aspiration should be given strong consideration. The pro-calcitonin level was quite elevated. Chest x-ray from today shows stable bilateral interstitial alveolar infiltrates and another infiltrate in left upper lobe. The cultures positive for MSSA and the patient remains on IV Zosyn. Consider a staphylococcal pneumonia with secondary hypoxic respiratory failure, currently on room air oxygen. 2 Mental status changes, currently being evaluated by the primary service. No major change in her mental status 3 Acute kidney injury secondary to ATN. The creatinine is improving and the patient's sodium level is up and it's on the rise and currently she is on D5 water. The creatinine is improving and the sodium level is also improved 4 Metabolic acidosis secondary to acute kidney injury. The acute kidney function is also improving and the creatinine is down to 2.07. 5 History of hypertension. 6 History of dementia. 7 Hypothyroidism. 8 MSSA/ staph aureus in the blood on 2 separate blood cultures from 07/17/2021, given vancomycin. Plan: Continue IV Zosyn Blood cultures positive for MSSA Chest x-ray showing stable bilateral interstitial alveolar infiltrates Continue monitoring the mental status The breathing is unlabored and the patient is currently on room air oxygen Continue IV Zosyn Continue D5 water supplements and monitor the creatinine, kidney function is improving Aspiration precautions Repeat chest x-ray in the morning was reviewed Repeat CAT scan of the brain that was done yesterday was noted and there are no acute abnormalities. The patient barely stays one-word responses and this is related to her severe dementia. We'll continue to follow. Long-term prognosis poor baseline above-mentioned comorbidities including advanced dementia.
--- NOTE | 2021-07-21 11:56 | PN ---
PROGRESS NOTE Patient is seen for followup for acute kidney injury. Patient's renal function has been fairly stable, with creatinine staying at about 2.0. It is down from 4.0 on initial admission. Currently patient is maintained on D5W at 75 mL/hour. On examination today, patient is sitting on a bedside chair. Blood pressure 113/59, heart rate 69 per minute. She is afebrile. No significant complaints. Patient does not communicate much. EXAMINATION OF THE HEART: S1 and S2. EXAMINATION OF LUNGS: Bilateral breath sounds are heard. Abdomen is soft, non-tender. Examination of lower extremities shows edema 1+ bilaterally. Labs show sodium 143, potassium 3.8, BUN 69, creatinine 2.0, hemoglobin 10.3 g/dL. ASSESSMENT: 1. Acute kidney injury, acute tubular necrosis, associated with hypotension and IV contrast, now improving. Patient has an atrophic left kidney. 2. Acute hypoxic respiratory failure, now improved. 3. Hypokalemia associated with decreased oral intake and bicarb initially, status post replacement now. 4. Staphylococcus aureus bacteremia, maintained on antibiotics. 5. Metabolic acidosis associated with acute kidney injury, status post bicarb drip. PLAN: Continue with the D5W for now. Encourage increased oral intake. Avoid nephrotoxic agents. MMODL / IJN: [id number] /
--- NOTE | 2021-07-21 14:59 | P.PN ---
Subjective Progress Note Date: 07/21/21 CHIEF COMPLAINT: GI bleed HISTORY OF PRESENT ILLNESS: Surgical service is following regards to patient's GI bleed. She had 2 bowel movements with no evidence of blood reported. She is sitting up at bedside chair. Denies any abdominal pain. Hemoglobin stable at 10.3. Tolerating clear liquid diet. Afebrile. WBC 19.3 potassium 3.2 up to 3.8 creatinine 2.07 PHYSICAL EXAM: VITAL SIGNS: Reviewed GENERAL: Well-developed in no acute distress. HEENT: No sclera icterus. Extraocular movements grossly intact. Moist buccal mucosa. Head is atraumatic, normocephalic. Hears conversational speech. No nasal drainage. NECK: Supple without lymphadenopathy. CHEST: Non-labored respirations and equal bilateral excursions. CARDIOVASCULAR: Palpable 2+ radial pulses. ABDOMEN: Soft. Nondistended. Nontender. MUSCULOSKELETAL: No clubbing or cyanosis. NEUROLOGIC: No focal or lateralizing signs. Cranial nerves II through XII grossly intact. PSYCH: Appropriate affect. Alert and awake. Pleasantly confused. SKIN: Well perfused. Good skin turgor. ASSESSMENT: 1. Acute GI bleed with one episode of blood present in stool 2. Anemia 3. Hypokalemia 4. Pneumonia 5. Fluid overload 6. Bacteremia with staph aureus 7. Acute kidney injury 8. Altered mental status changes 9. Severe dementia PLAN: -Advance diet to full liquids -No plan for endoscopies -Continue conservative management -Continue supportive care -Continue to monitor for signs or symptoms of bleeding -Continue to monitor hemoglobin Physician Hearing And Speech Assistant note has been reviewed by physician. Signing provider agrees with the documented findings, assessment, and plan of care. Objective - Vital Signs Vital signs: Vital Signs Temp 98.4 F 07/21/21 04:00 Pulse 104 H 07/21/21 11:32 Resp 16 07/21/21 11:32 BP 106/69 07/21/21 11:32 Pulse Ox 94 L 07/21/21 11:32 Intake & Output 07/20/21 07/21/21 07/21/21 18:59 06:59 18:59 Intake Total 1100 1000 Balance 1100 1000 Weight 89.5 kg Intake: Intake, IV Titration 1100 1000 Amount Dextrose 5% in Water 1, 600 900 000 ml @ 75 mls/hr IV . [id number] [facility] Rx#:[id number] Piperacillin-Tazobactam 3 100 100 .375 gm In Sodium Chloride 0.9% 100 ml @ 25 mls/hr IVPB Q8HR [facility] Rx# :[id number] Potassium Chloride 10 meq 400 In Water For Injection 1 100ml.bag @ 100 mls/hr IVPB Q1HR [facility] Rx#: [id number] Other: Voiding Method Diaper Diaper Diaper # Voids 1 # Bowel Movements 1 - Labs CBC & Chem 7: 07/21/21 06:40 07/21/21 06:40 Labs: Abnormal Lab Results - Last 24 Hours (Table) 07/21/21 07/21/21 Range/Units 06:40 06:40 WBC 19.3 H (3.8-10.6) k/uL RBC 3.32 L (3.80-5.40) m/uL Hgb 10.3 L (11.4-16.0) gm/dL Hct 32.6 L (34.0-46.0) % RDW 15.8 H (11.5-15.5) % Plt Count 109 L (150-450) k/uL Neutrophils # (Manual) 16.00 H (1.3-7.7) k/uL Metamyelocytes # (Man) 0.58 H (0) k/uL Myelocytes # (Manual) 0.58 H (0) k/uL Chloride 110 H (98-107) mmol/L BUN 69 H (7-17) mg/dL Creatinine 2.07 H (0.52-1.04) mg/dL Glucose 137 H (74-99) mg/dL Calcium 8.1 L (8.4-10.2) mg/dL Microbiology - Last 24 Hours (Table) 07/17/21 17:05 Blood Culture Gram Stain - Final Blood Blood Culture - Final Staphylococcus aureus 07/17/21 17:15 Blood Culture Gram Stain - Final Blood Blood Culture - Final Staphylococcus aureus
[2021-07-21] MEDS: ENOXAPARIN 30 MG/0.3 ML SYRINGE SQ SCH (16:43)
--- NOTE | 2021-07-21 17:37 | P.PN ---
Progress Note - Text Progress Note Date: 07/21/21 Chief Complaint: Decreased responsiveness The following history per ER notes: This 81-year-old patient was brought by the EMS from assisted living. She was found to be unresponsive this morning. It is unknown when the patient was last seen normal. EMS found the patient to be unresponsive. She was hypoxic with oxygen level in 70s percent. Placed on 15 L nonrebreather. And patient started to become more alert. Humerus was told that the patient has a left hand we akness. Initial heart rate was 124. He was moving her limbs to painful stimuli in the ER. Blood glucose in the ER was 165. Stroke protocol was activated was not felt to be a TPA candidate. Daughter Doris told the ER physician that for last several days patient has been getting weak. worker in the assisted living also tested positive for COVID. The patient had tested negative. Patient had decreased oral intake in the last 2-3 days. Patient has a history of dementia thyroid disease and hiatal hernia. Patient had elevated BUN and creatinine. Sodium bicarbonate drip was started. Patient was on BiPAP. Also received some fluid bolus. When I came to see the patient.- lethargic but arousable. Doesn't answer questions. Moving all limbs. Getting IV fluids Admitted with acute metabolic encephalopathy, bilateral pneumonia, sepsis with lactic acidosis, acute hypoxic respiratory failure, acute kidney injury felt to be combination of prerenal and ATN. Started IV Zosyn fluids oxygen supplementation. July 19: Patient is bit more awake today. Rather tired. Not answering questions. Pulse oxing well 94% on room air. IV antibiotic. July 20: Overnight patient had one large bloody bowel movement. Awake. Tired. No pain. Surgery consulted July 21: Patient is advanced to full liquid diet. Will have the feeding done with assistance. Laying in bed. Tired. Not really speaking much. Review of systems cannot be done patient rather lethargic. Active Medications Acetaminophen (Acetaminophen Tab 325 Mg Tab) 650 mg PO Q6HR PRN PRN Reason: Mild Pain or Fever > 100.5 Atorvastatin Calcium (Atorvastatin 10 Mg Tab) 10 mg PO HS [facility] Last Admin: 07/20/21 20:26 Dose: Not Given Documented by: Enoxaparin Sodium (Enoxaparin 30 Mg/0.3 Ml Syringe) 30 mg SQ DAILY@1600 [facility] Last Admin: 07/21/21 16:43 Dose: 30 mg Documented by: Folic Acid (Folic Acid 1 Mg Tab) 1 mg PO DAILY [facility] Last Admin: 07/21/21 09:02 Dose: 1 mg Documented by: Dextrose/Water (Dextrose 5%-Water Iv Soln) 1,000 mls @ 75 mls/hr IV .[id number] [facility] Last Admin: 07/21/21 05:51 Dose: 75 mls/hr Documented by: Piperacillin Sod/Tazobactam (Sod 3.375 gm/ Sodium Chloride) 100 mls @ 25 mls/hr IVPB Q8HR [facility] Last Admin: 07/21/21 16:43 Dose: 25 mls/hr Documented by: Levothyroxine Sodium (Levothyroxine Ivp 100 Mcg/5 Ml Vial) 12.5 mcg IV Q48H [facility] Last Admin: 07/20/21 05:36 Dose: 12.5 mcg Documented by: Naloxone HCl (Naloxone 0.4 Mg/Ml 1 Ml Vial) 0.2 mg IV Q2M PRN PRN Reason: Opioid Reversal Ondansetron HCl (Ondansetron 4 Mg/2 Ml Vial) 4 mg IVP Q8HR PRN PRN Reason: Nausea And Vomiting Pantoprazole Sodium (Pantoprazole 40 Mg/10 Ml Vial) 40 mg IVP BID [facility] Last Admin: 07/21/21 09:02 Dose: 40 mg Documented by: Past medical history: Dementia, hypothyroid, hiatal hernia Social history: Unable to obtain. Resident of [facility] Family history: Patient cannot tell Physical examination: VITAL SIGNS: 98.4, 69, 16, 130/59, 95% on room air GENERAL: Laying in bed, but awake, tired EYES: Pupils equal. Conjunctiva normal. HEENT: External appearance of nose and ears normal, oral cavity dry mucous membrane. NECK: JVD not raised; masses not palpable. HEART: First and second heart sounds are normal; no edema. LUNGS: Respiratory rate increased; increased breath sounds. ABDOMEN: Soft, nontender, liver spleen not palpable, no masses palpable. PSYCH: Not answering questions MUSCULOSKELETAL: Evidence of OA in several joints INVESTIGATIONS, reviewed in the clinical context: July 21: White count 19.3 hemoglobin 10.3 platelets 109and 3.8 BUN 69 creatinine 2.07 July 20: White count 18.6 hemoglobin 10.4 platelets 144 sodium 143 progression 3.2 BUN 83 creatinine 2.04 EEG: Negative for epileptiform activity. Suggestive of encephalopathy. July 19: Sodium 147 potassium 3.8. 95 creatinine 2.91 Renal ultrasound: Suboptimal study. July 18: Sodium 142 potassium 3 BUN 95 creatinine 3.56 lactic acid 4.9 WBC 15.2 hemoglobin 13.4 platelets 243 INR 1.4 sodium 140 potassium 4.2 BUN 97 creatinine 4.02 Lactic acid 10.4 magnesium 2.4 creatinine kind is 182 troponin I 0.685 albumin 2.7 UA negative for leukoesterase and nitrite Coronavirus [PCR]: Not detected EKG tracing personally reviewed by me-normal sinus rhythm, poor R-wave progression, intraventricular block, ST-T wave changes. CT brain without contrast: No evidence of any stroke. Some increase in degree of ventriculomegaly. AIDS related changes. Consider hydrocephalus/NPH CT angiogram head and neck: Fusiform stenosis of cervical internal carotid arteries bilaterally. Chest x-ray film personally reviewed by me-bilateral infiltrates Assessment and plan: -Acute metabolic encephalopathy, likely combination of sepsis, severe renal failure from pneumonia: Slow to respond Follow clinically -Bilateral pneumonia, suspect gram-negative organism. Suspect additional aspiration pneumonia IV Zosyn -Sepsis with lactic acidosis: Improving IV fluids -Acute blood loss anemia from GI bleed Follow H&H -Acute hypoxic respiratory failure secondary to pneumonia: Better Patient was put on BiPAP initially. Now 94% on room air -Acute kidney injury possibly combination of prerenal and ATN from sepsis dehydration. Poor Introl oral intake for a few days.: Slow to respond IV fluids. D5 0.45. Admission creatinine 3.56. Today 2. 07. Increase IV fluids 200 mL's an hour -Acute GI bleed with one episode of bloody bowel movement Follow H&H. surgery no current intervention. -Primary osteoarthritis Pain medications as needed -Cognitive impairment from underlying Alzheimer's dementia -Hypothyroid IV Synthroid 25 g every 48 hours -DO NOT RESUSCITATE Continue IV Zosyn. Increase IV fluids 100 mL an hour. Spoke to the nurse. Assistance with feeding. Follow labs.
[2021-07-21] MEDS: ATORVASTATIN 10 MG TAB PO SCH (20:43)
[2021-07-22] MEDS: LEVOTHYROXINE IVP 100 MCG/5 ML VIAL IV SCH (06:00)
[2021-07-22] MEDS: DEXTROSE 5% IN WATER 1,000 ML IV SCH (06:00)
[2021-07-22] MEDS: PANTOPRAZOLE 40 MG/10 ML VIAL IVP SCH ×2 (08:30→20:16)
[2021-07-22] MEDS: PIPERACILLIN-TAZOBACTAM 3.375 GM in SODIUM CHLORIDE 0.9% 100 ML IVPB SCH ×2 (08:30→16:26)
[2021-07-22] MEDS: FOLIC ACID 1 MG TAB PO SCH (08:30)
[2021-07-22 08:52] LABS: Calcium 7.5 mg/dL (8.4-10.2); Magnesium 1.8 mg/dL (1.6-2.3); Potassium 3.1 mmol/L (3.5-5.1)
[2021-07-22 08:55] LABS: HCT 31.3 % (34.0-46.0); HGB 10.1 gm/dL (11.4-16.0); MCH 31.3 pg (25.0-35.0); MCHC 32.4 g/dL (31.0-37.0); MCV 96.6 fL (80.0-100.0); Mean Platelet Volume 10.4; Platelet Count 92 k/uL (150-450); RBC 3.24 m/uL (3.80-5.40); RDW 15.8 % (11.5-15.5); WBC 22.6 k/uL (3.8-10.6)
[2021-07-22 09:36] LABS: Band Neutrophils % 3 %; Eosinophils # (M) 0.68 k/uL (0-0.7); Lymphocytes # (M) 1.81 k/uL (1.0-4.8); Metamyelocytes # (M) 0.45 k/uL (0); Metamyelocytes % 2 %; Monocytes # (M) 0.68 k/uL (0-1.0); Myelocytes # (M) 0.23 k/uL (0); Myelocytes % 1 %; Neutrophils % (M) 82 %; Nucleated Red Blood Cells 0 /100 WBC (0-0); Total Cells Counted 200
[2021-07-22 09:38] LABS: Poikilocytosis (M) Present; Polychromasia Present
[2021-07-22] MEDS ORDERED: POTASSIUM CHLORIDE 20 MEQ in WATER FOR INJECTION 1 100ML.BAG IVPB STA (09:50)
--- NOTE | 2021-07-22 10:31 | P.PN ---
Subjective Progress Note Date: 07/22/21 81-year-old female, poorly responsive, who apparently presents to the emergency department with an altered mental status. The patient was seen in the emergency room by one of the ER physicians. The history is obtained from the note done by the ER physician. The patient was apparently found to be unresponsive the morning that she presented on the , at the assisted living facility where she resides. Apparently, her saturations were 70%. She was placed on a nonrebreather mask, and her oxygenation did improve. She apparently became more alert. She was apparently not following any commands though. It was noted that she had a slight weakness in her left hand, and some drooping of her left gene ulder. Her blood glucose was not checked by EMS. Heart rate was apparently 124. I can get no additional history from the patient herself. Currently, she is on 4 L nasal cannula. Her saturations are 96%. Blood pressure 101/78. Heart rate 103, and temperature 97.5. Respiratory rate is 18 breaths per minute. Current labs show a sodium 142, potassium 3, chlorides 107, CO2 25, anion gap 10, BUN 95, and creatinine 3.56. Glucose is 177. Lactic acid is 4.9, repeat is 6.4, and additional follow-up lactic acid is 5.3. The patient's N- terminal proBNP is 6050. Chest x-ray shows by lateral patchy infiltrates. Progress note dated 07/19/2021. 81-year-old female, seen in consultation yesterday for hypoxia, likely related to bilateral pneumonia, and fluid overload. Currently, the patient is poorly responsive. Her mental status changes are being evaluated by the primary service. She has a history of dementia, hypothyroidism, hypertension, acute kidney injury, metabolic acidosis, and mental status changes. She is currently on room air, with saturations of 95%. The rest of her vital signs are stable. Sodium 147, potassium 3.8, chlorides 112, CO2 27, anion gap 8, BUN 95, creatinine 2.91. Calcium is 8.3. Albumin 2.0. A head CT showed no acute intracranial hemorrhage midline shift or mass effect. Most of the changes were chronic in nature. On 07/20/2021, the patient is being seen for a follow-up. The patient was seen initially for hypoxic respiratory failure, suspecting pneumonia. The patient remains on Zosyn. As part of further workup, the pro-calcitonin level was c hecked on the level was quite elevated at 36.1. At the same time, the patient had a proBNP level of 6000, creatinine is improving and it's down to 2.9 with a BUN of 95 and a sodium level of 147. White cell count of 15.2. The patient for now his own D5 water running at 75 mL's an hour. The patient is also on Lovenox 40 prophylaxis. The patient remains on IV Zosyn. The blood culture on came back presumptive staph aureus and the patient was given a dose of vancomycin on 07/18/2021. The patient remains afebrile. CAT scan of the brain shows no acute abnormalities and abnormalities are essentially chronic in nature. The patient has dementia, hypothyroidism and hypertension and she p resented to us with altered mentation. This was in addition to hypoxemia. From today shows a white cell count of 18.8 despite higher compared to yesterday. Hemoglobin is at 10.4. The sodium level is down to 143 with a potassium level of 3.2, creatinine is also improving is down to 2.04 as the patient is recovering from her acute kidney injury. In terms of cultures, the patient is showing staph aureus in the blood on 2 separate blood cultures as mentioned. The patient is currently on antibiotics and she is on Zosyn. IV fluids are still in the form of D5 water at the rate of 75 mL an hour. 32,021, I'm seeing this patient for a follow-up. Noted the patient was being treated for bilateral pneumonia. She had a significantly elevated protein calcitonin level and the patient's also had some leukocytosis and she was covered with IV Zosyn. The patient had blood culture that came back presumptive staph aureus and the patient was given a dose of vancomycin. She subsequently was found to have MSSA in her blood on 2 separate blood cultures. She is currently on IV Zosyn which has adequate coverage for MSSA. She is currently on room air oxygen. She is taking Lovenox for DVT prophylaxis. She has a congested cough. Breathing is nonlabored. In terms of her blood work, her renal function is improving and the creatinine is down to 2.07 from as high as 4, electrolytes are all within normal limits. The patient remains on D5 water at the rate of 75 mL an hour. No other significant events overnight. She is sitting up comfortably on the recliner. She does not communicate due to her advanced dementia. 07/22/2021, I'm seeing the patient for a follow-up. She is currently on room air oxygen. She was being treated for bilateral pneumonia secondary to staph aureus. Pro-calcitonin level was elevated. The patient continues to have some leukocytosis with a white cell count of 22.6. The patient cultures MSSA and this was present on 2 separate blood cultures and the patient is currently covered with IV Zosyn Zosyn. She is resting comfortably in bed. She doesn't communicate a whole lot. She has advanced dementia. She remains on D5 water at the rate of 100 mL an hour. She is also on Lovenox for DVT prophylaxis at a dose of 30 mg subcu daily basis. The patient's blood work from today is showing a white cell count of 22, sodium level is down to 134 and a D5 water can be discontinued and this can be switched to normal saline. The kidney function is also improving and the creatinine is down to 1.4. As such, the patient's condition in general is improving. As mentioned, is currently on room air oxygen. Objective - Vital Signs Vital signs: Vital Signs Temp 98.4 F 07/22/21 08:00 Pulse 107 H 07/22/21 08:00 Resp 18 07/22/21 08:00 BP 106/74 07/22/21 08:00 Pulse Ox 92 L 07/22/21 08:00 Intake & Output 07/21/21 07/22/21 07/22/21 18:59 06:59 18:59 Intake Total 700 1700 Output Total 400 Balance 700 1300 Weight 90.5 kg Intake: IV 1600 D5 1600 Intake, IV Titration 700 100 Amount Dextrose 5% in Water 1, 600 000 ml @ 100 mls/hr IV . Q10H [facility] Rx#:[id number] Piperacillin-Tazobactam 3 100 100 .375 gm In Sodium Chloride 0.9% 100 ml @ 25 mls/hr IVPB Q8HR [facility] Rx# :[id number] Output: Urine 400 Other: Voiding Method Diaper External Catheter # Bowel Movements 1 - Exam Poorly responsive, opens eyes, does not speak. No respiratory distress. Currently on room air. HEENT examination is grossly unremarkable. Neck supple. Full range of motion. No adenopathy thyromegaly or neck vein distention. Cardiovascular examination reveals regular rhythm rate. S1-S2 normal. No S3 or S4. No discernible murmur noted. Heart sounds are distant. Heart rate 99 bpm. Lungs reveal occasional rhonchi. No wheezes or crackles. Breath sounds equal bilaterally. She does not take deep breaths. Saturations are 94-95%. Abdomen soft bowel sounds are heard. No masses or tenderness. Extremities are intact. No cyanosis clubbing or edema. Skin is without rash or lesion. Neurologic examination is very difficult to assess. The patient's very lethargic and somnolent. She does not speak. She moves her extremities poorly. - Labs CBC & Chem 7: 07/22/21 07:27 07/22/21 07:27 Labs: Abnormal Lab Results - Last 24 Hours (Table) 07/22/21 07/22/21 Range/Units 07:27 07:27 WBC 22.6 H (3.8-10.6) k/uL RBC 3.24 L (3.80-5.40) m/uL Hgb 10.1 L (11.4-16.0) gm/dL Hct 31.3 L (34.0-46.0) % RDW 15.8 H (11.5-15.5) % Plt Count 92 L (150-450) k/uL Neutrophils # (Manual) 19.20 H (1.3-7.7) k/uL Metamyelocytes # (Man) 0.45 H (0) k/uL Myelocytes # (Manual) 0.23 H (0) k/uL Sodium 134 L (137-145) mmol/L Potassium 3.1 L (3.5-5.1) mmol/L Carbon Dioxide 18 L (22-30) mmol/L BUN 54 H (7-17) mg/dL Creatinine 1.44 H (0.52-1.04) mg/dL Glucose 109 H (74-99) mg/dL Calcium 7.5 L (8.4-10.2) mg/dL Assessment and Plan Plan: 1 staphylococcal pneumonia and possible culture with MSSA. The patient had Acute hypoxia, which is likely multifactorial, in part related to bilateral pneumonia, and also fluid overload. With the patient's poor mental status, aspiration should be given strong consideration. The pro-calcitonin level was quite elevated. Chest x-ray from today shows stable bilateral interstitial alveolar infiltrates and another infiltrate in left upper lobe. The cultures positive for MSSA and the patient remains on IV Zosyn. Consider a staphylococcal pneumonia with secondary hypoxic respiratory failure, currently on room air oxygen.a repeat chest x-ray will be obtained for tomorrow, clinically stable for now. 2 Mental status changes, currently being evaluated by the primary service. No major change in her mental status 3 Acute kidney injury secondary to ATN, improving 4 Metabolic acidosis secondary to acute kidney injury, non anion gap 5 History of hypertension. 6 History of dementia. 7 Hypothyroidism. 8 MSSA/ staph aureus in the blood on 2 separate blood cultures from 07/17/2021, given IV Zosyn. Plan: Continue IV Zosyn Blood cultures positive for MSSA Chest x-ray showing stable bilateral interstitial alveolar infiltrates, repeat chest x-ray in the morning Continue monitoring the mental status The breathing is unlabored and the patient is currently on room air oxygen Continue IV Zosyn DC prior to fainting And yesterday Continue D5 water supplements , Stress this patient to a normal saline infusion at the rate of 50 she is an hour Aspiration precautions Repeat chest x-ray in the morning was reviewed, a follow-up chest x-ray we will obtain for tomorrow Repeat CAT scan of the brain that was done yesterday was noted and there are no acute abnormalities. The patient barely stays one-word responses and this is related to her severe dementia. We'll continue to follow. Long-term prognosis poor baseline above-mentioned comorbidities including advanced dementia.
--- NOTE | 2021-07-22 11:35 | XR ---
EXAMINATION TYPE: XR chest 2V DATE OF EXAM: 07/22/2021 COMPARISON: 07/21/2021 TECHNIQUE: PA and lateral views submitted. HISTORY: Cough FINDINGS: Bilateral interstitial and alveolar patchy infiltrate and small pleural effusion. Heart size normal. No pneumothorax. Apical pleural thickening stable. Diffuse osteopenia and arthropathy shoulders. More nodular area of consolidation left lung and there are surgical clips overlying the left hemithorax . IMPRESSION: 1. Stable interstitial and alveolar areas of infiltrate correlate for multifocal pneumonia was superi mposed interstitial pneumonitis. Follow-up to resolution to exclude underlying mass left upper lobe.
--- NOTE | 2021-07-22 13:33 | P.PN ---
Subjective Progress Note Date: 07/22/21 CHIEF COMPLAINT: GI bleed HISTORY OF PRESENT ILLNESS: Surgical service is following regards to patient's GI bleed. Patient continues to have no blood reported in stool. She had another brown bowel movement today. She's lying in bed comfortably. No reports of abdominal pain. She is eating a small amount of her full liquid diet. Afebrile. WBC is 22.6 hemoglobin stable at 10.1 PHYSICAL EXAM: VITAL SIGNS: Reviewed GENERAL: Well-developed in no acute distress. HEENT: No sclera icterus. Extraocular movements grossly intact. Moist buccal mucosa. Head is atraumatic, normocephalic. Hears conversational speech. No nasal drainage. NECK: Supple without lymphadenopathy. CHEST: Non-labored respirations and equal bilateral excursions. CARDIOVASCULAR: Palpable 2+ radial pulses. ABDOMEN: Soft. Nondistended. Nontender. MUSCULOSKELETAL: No clubbing or cyanosis. NEUROLOGIC: No focal or lateralizing signs. Cranial nerves II through XII grossly intact. PSYCH: Appropriate affect. Alert and awake. Pleasantly confused. SKIN: Well perfused. Good skin turgor. ASSESSMENT: 1. Acute GI bleed with one episode of blood present in stool. Patient's hemoglobin is stable. She has had no further signs or symptoms of bleeding. 2. Anemia 3. Hypokalemia 4. Pneumonia 5. Fluid overload 6. Bacteremia with staph aureus 7. Acute kidney injury 8. Altered mental status changes 9. Severe dementia PLAN: -Surgical service will sign off. Please call with any questions or concerns. -Advance diet as tolerated -No plan for endoscopies -Continue conservative management -Continue supportive care Physician Contract Technician note has been reviewed by physician. Signing provider agrees with the documented findings, assessment, and plan of care. Objective - Vital Signs Vital signs: Vital Signs Temp 98.4 F 07/22/21 08:00 Pulse 103 H 07/22/21 12:00 Resp 16 07/22/21 12:00 BP 117/61 07/22/21 12:00 Pulse Ox 92 L 07/22/21 12:00 Intake & Output 07/21/21 07/22/21 07/22/21 18:59 06:59 18:59 Intake Total 700 1700 118 Output Total 400 Balance 700 1300 118 Weight 90.5 kg Intake: IV 1600 D5 1600 Intake, IV Titration 700 100 Amount Dextrose 5% in Water 1, 600 000 ml @ 100 mls/hr IV . Q10H [facility] Rx#:[id number] Piperacillin-Tazobactam 3 100 100 .375 gm In Sodium Chloride 0.9% 100 ml @ 25 mls/hr IVPB Q8HR [facility] Rx# :[id number] Oral 118 Output: Urine 400 Other: Voiding Method Diaper External Catheter External Catheter # Bowel Movements 1 - Labs CBC & Chem 7: 07/22/21 07:27 07/22/21 07:27 Labs: Abnormal Lab Results - Last 24 Hours (Table) 07/22/21 07/22/21 Range/Units 07:27 07:27 WBC 22.6 H (3.8-10.6) k/uL RBC 3.24 L (3.80-5.40) m/uL Hgb 10.1 L (11.4-16.0) gm/dL Hct 31.3 L (34.0-46.0) % RDW 15.8 H (11.5-15.5) % Plt Count 92 L (150-450) k/uL Neutrophils # (Manual) 19.20 H (1.3-7.7) k/uL Metamyelocytes # (Man) 0.45 H (0) k/uL Myelocytes # (Manual) 0.23 H (0) k/uL Sodium 134 L (137-145) mmol/L Potassium 3.1 L (3.5-5.1) mmol/L Carbon Dioxide 18 L (22-30) mmol/L BUN 54 H (7-17) mg/dL Creatinine 1.44 H (0.52-1.04) mg/dL Glucose 109 H (74-99) mg/dL Calcium 7.5 L (8.4-10.2) mg/dL
--- NOTE | 2021-07-22 14:50 | P.PN ---
Subjective Progress Note Date: 07/22/21 07/22/2021: Patient laying comfortably in the bed. Patient keeps her eyes closed. Does open her eyes to calling her name. Trying to communicate a little. Slightly better than the last visit. Offers no complaints. 07/20/2021: Patient was seen for a follow-up. Patient initially seen by Dr. Leroy Maciel. Please refer to his note for details. Patient is an 81-year-old female, who came with questionable left-sided weakness. Patient has advanced dementia. She is at baseline alert and oriented 0. She only gives one to 2 words answers. Patient's daughter was also present. Patient currently on Namenda 10 mg twice a day. She does not remember if patient has ever been on Aricept. Patient also has developed sepsis because of Staphylococcus aureus in the blood cultures times twice. Patient also has developed GI bleed for which patient was seen by Gen. surgery. No plans for upper or lower endoscopy. Objective - Vital Signs Vital signs: Vital Signs Temp 98.4 F 07/22/21 08:00 Pulse 103 H 07/22/21 12:00 Resp 16 07/22/21 12:00 BP 117/61 07/22/21 12:00 Pulse Ox 92 L 07/22/21 12:00 Intake & Output 07/21/21 07/22/21 07/22/21 18:59 06:59 18:59 Intake Total 700 1700 118 Output Total 400 Balance 700 1300 118 Weight 90.5 kg Intake: IV 1600 D5 1600 Intake, IV Titration 700 100 Amount Dextrose 5% in Water 1, 600 000 ml @ 100 mls/hr IV . Q10H [facility] Rx#:[id number] Piperacillin-Tazobactam 3 100 100 .375 gm In Sodium Chloride 0.9% 100 ml @ 25 mls/hr IVPB Q8HR [facility] Rx# :[id number] Oral 118 Output: Urine 400 Other: Voiding Method Diaper External Catheter External Catheter # Bowel Movements 1 - Exam Patient is slightly somnolent. She does open her eyes. She makes good eye contact. Patient does not know her name, states "I don't know". When I asked her to name objects like a pen, or eyeglasses, patient was trying to vocalize some words, although was more mumbling otherwise. Her baseline is she only speaks one or 2 words answers related to dementia. Patient's face is symmetric. Pupils are round and reacting. Extraocular muscles appears intact. Patient's tone is equal in both arms. On manually lifting it up, both arms she brings it down slowly and equally. No obvious focality. - Labs CBC & Chem 7: 07/22/21 07:27 07/22/21 07:27 Labs: Abnormal Lab Results - Last 24 Hours (Table) 07/22/21 07/22/21 Range/Units 07:27 07:27 WBC 22.6 H (3.8-10.6) k/uL RBC 3.24 L (3.80-5.40) m/uL Hgb 10.1 L (11.4-16.0) gm/dL Hct 31.3 L (34.0-46.0) % RDW 15.8 H (11.5-15.5) % Plt Count 92 L (150-450) k/uL Neutrophils # (Manual) 19.20 H (1.3-7.7) k/uL Metamyelocytes # (Man) 0.45 H (0) k/uL Myelocytes # (Manual) 0.23 H (0) k/uL Sodium 134 L (137-145) mmol/L Potassium 3.1 L (3.5-5.1) mmol/L Carbon Dioxide 18 L (22-30) mmol/L BUN 54 H (7-17) mg/dL Creatinine 1.44 H (0.52-1.04) mg/dL Glucose 109 H (74-99) mg/dL Calcium 7.5 L (8.4-10.2) mg/dL Assessment and Plan Assessment: * Altered mental status likely due to hypoxic/toxic metabolic encephalopathy due to pneumonia and bacteremia/sepsis. * Possible ?left upper extremity weakness/ hand weakness. Possible stroke (two CT head are negative for acute or subacute stroke). * Acute kidney insufficiency * Positive Fecal occult blood. * Advanced dementia (is oriented X0) * History of hypothyroidism Plan: * Patient's altered mental status is likely related to toxic metabolic encephalopathy. Hopefully her encephalopathy will improve once bacteremia and other medical conditions, under control. However with her severe dementia, acute infections often can lead to clinical setback, and patient may not regain functional recovery back to baseline. * Suggest resuming aspirin 81 mg daily as early as cleared by IM/general s urgery. * Continue Lipitor 10 mg at bedtime. Lipid panel with cholesterol 84, LDL 35, HDL 27 and triglycerides 105. * B12 842, folate 6.5, TSH 5.02. We will start folate replacement. * Patient on Lovenox for DVT prophylaxis. * Pulmonary team is on board * Nephrology team is consulted * We'll defer the rest of the medical management to the primary team. * We will follow sporadically. Recent tests: Stool occult blood was positive Ward virus PCR was not detected Ammonia level is 18. CT of the head is reported as no evident marriage. Suspect some interval in crease in the degree of ventriculomegaly, consider hydrocephalus, normal pressure hydrocephalus. Age-related changes of atrophy and chronic small vessel ischemia. 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 There is no evidence of intracranial hemodynamic stenosis. Per the ED notes the patient last normal was unclear. Patient is not a TPA candidate since of unclear of her medical history as well as the time of onset. And a TPA risk outweighed the benefit. Repeat CT head: Reported as no acute intracranial hemorrhage or midline shift or mass effect. Chronic changes at. No significant change since prior.
--- NOTE | 2021-07-22 15:57 | PN ---
PROGRESS NOTE Patient is seen for followup for acute kidney injury. Patient's renal function has been improving. She is maintained on IV fluids. Sodium is down to 134 and IV fluids have been switched to normal saline. She was initially getting D5W for hypernatremia. EXAMINATION: Today patient is comfortable. Blood pressure 117/61, heart rate 103 per minute, she is afebrile. Examination of the heart S1, S2. Examination of the lungs, bilateral breath sounds are heard. Abdomen is soft, nontender. Examination of lower extremities shows 1+ edema. LAB: Show sodium 134, potassium 3.1, CO2 is 18, BUN 54, creatinine 1.4. ASSESSMENT: 1. Acute kidney injury, prerenal, currently improving with IV hydration. 2. Hypernatremia, improved with D5W. Sodium is 134 today and IV fluids were switched to normal saline which is appropriate. 3. Hypokalemia, will replace. 4. Staphylococcus aureus bacteremia. No repeat blood cultures after 07/17 it is MSSA. PLAN: Agree with switching fluids to normal saline. Replace potassium. Repeat blood cultures. MMODL / IJN: [id number] /
--- NOTE | 2021-07-22 16:04 | P.PN ---
Progress Note - Text Progress Note Date: 07/22/21 Chief Complaint: Decreased responsiveness The following history per ER notes: This 81-year-old patient was brought by the EMS from assisted living. She was found to be unresponsive this morning. It is unknown when the patient was last seen normal. EMS found the patient to be unresponsive. She was hypoxic with oxygen level in 70s percent. Placed on 15 L nonrebreather. And patient started to become more alert. Humerus was told that the patient has a left hand we akness. Initial heart rate was 124. He was moving her limbs to painful stimuli in the ER. Blood glucose in the ER was 165. Stroke protocol was activated was not felt to be a TPA candidate. Daughter Doris told the ER physician that for last several days patient has been getting weak. worker in the assisted living also tested positive for COVID. The patient had tested negative. Patient had decreased oral intake in the last 2-3 days. Patient has a history of dementia thyroid disease and hiatal hernia. Patient had elevated BUN and creatinine. Sodium bicarbonate drip was started. Patient was on BiPAP. Also received some fluid bolus. When I came to see the patient.- lethargic but arousable. Doesn't answer questions. Moving all limbs. Getting IV fluids Admitted with acute metabolic encephalopathy, bilateral pneumonia, sepsis with lactic acidosis, acute hypoxic respiratory failure, acute kidney injury felt to be combination of prerenal and ATN. Started IV Zosyn fluids oxygen supplementation. July 19: Patient is bit more awake today. Rather tired. Not answering questions. Pulse oxing well 94% on room air. IV antibiotic. July 20: Overnight patient had one large bloody bowel movement. Awake. Tired. No pain. Surgery consulted July 21: Patient is advanced to full liquid diet. Will have the feeding done with assistance. Laying in bed. Tired. Not really speaking much. July 22: Patient is barely eating much. Diet. Laying in bed. Not in distress. On IV Zosyn. Blood cultures positive for MSSA. Review of systems cannot be done patient rather lethargic. Active Medications Acetaminophen (Acetaminophen Tab 325 Mg Tab) 650 mg PO Q6HR PRN PRN Reason: Mild Pain or Fever > 100.5 Atorvastatin Calcium (Atorvastatin 10 Mg Tab) 10 mg PO HS [facility] Last Admin: 07/21/21 20:43 Dose: 10 mg Documented by: Enoxaparin Sodium (Enoxaparin 30 Mg/0.3 Ml Syringe) 30 mg SQ DAILY@1600 [facility] Last Admin: 07/21/21 16:43 Dose: 30 mg Documented by: Folic Acid (Folic Acid 1 Mg Tab) 1 mg PO DAILY [facility] Last Admin: 07/22/21 08:30 Dose: 1 mg Documented by: Piperacillin Sod/Tazobactam (Sod 3.375 gm/ Sodium Chloride) 100 mls @ 25 mls/hr IVPB Q8HR [facility] Last Admin: 07/22/21 08:30 Dose: 25 mls/hr Documented by: Sodium Chloride (Saline 0.9%) 1,000 mls @ 50 mls/hr IV .Q20H [facility] Levothyroxine Sodium (Levothyroxine Ivp 100 Mcg/5 Ml Vial) 12.5 mcg IV Q48H [facility] Last Admin: 07/22/21 06:00 Dose: 12.5 mcg Documented by: Naloxone HCl (Naloxone 0.4 Mg/Ml 1 Ml Vial) 0.2 mg IV Q2M PRN PRN Reason: Opioid Reversal Ondansetron HCl (Ondansetron 4 Mg/2 Ml Vial) 4 mg IVP Q8HR PRN PRN Reason: Nausea And Vomiting Pantoprazole Sodium (Pantoprazole 40 Mg/10 Ml Vial) 40 mg IVP BID [facility] Last Admin: 07/22/21 08:30 Dose: 40 mg Documented by: Past medical history: Dementia, hypothyroid, hiatal hernia Social history: Unable to obtain. Resident of [facility] Family history: Patient cannot tell Physical examination: VITAL SIGNS: 98.4, 103, 16, 117/61, 92% on room air GENERAL: Laying in bed, lethargic, tired EYES: Pupils equal. Conjunctiva normal. HEENT: External appearance of nose and ears normal, oral cavity dry mucous membrane. NECK: JVD not raised; masses not palpable. HEART: First and second heart sounds are normal; no edema. LUNGS: Respiratory rate increased; decreased breath sounds. ABDOMEN: Soft, nontender, liver spleen not palpable, no masses palpable. PSYCH: Not answering questions MUSCULOSKELETAL: Evidence of OA in several joints INVESTIGATIONS, reviewed in the clinical context: July 22: WBC 22.6 hemoglobin 10.1 platelets 92 sodium 134 percussion 3.1 BUN 54 creatinine 1.44 Chest x-ray film personally reviewed by me-scattered infiltrates bilateral July 21: White count 19.3 hemoglobin 10.3 platelets 109and 3.8 BUN 69 creatinine 2.07 July 20: White count 18.6 hemoglobin 10.4 platelets 144 sodium 143 progression 3.2 BUN 83 creatinine 2.04 EEG: Negative for epileptiform activity. Suggestive of encephalopathy. July 19: Sodium 147 potassium 3.8. 95 creatinine 2.91 Renal ultrasound: Suboptimal study. July 18: Sodium 142 potassium 3 BUN 95 creatinine 3.56 lactic acid 4.9 WBC 15.2 hemoglobin 13.4 platelets 243 INR 1.4 sodium 140 potassium 4.2 BUN 97 creatinine 4.02 Lactic acid 10.4 magnesium 2.4 creatinine kind is 182 troponin I 0.685 albumin 2.7 UA negative for leukoesterase and nitrite Coronavirus [PCR]: Not detected EKG tracing personally reviewed by me-normal sinus rhythm, poor R-wave progression, intraventricular block, ST-T wave changes. CT brain without contrast: No evidence of any stroke. Some increase in degree of ventriculomegaly. AIDS related changes. Consider hydrocephalus/NPH CT angiogram head and neck: Fusiform stenosis of cervical internal carotid arteries bilaterally. Chest x-ray film personally reviewed by me-bilateral infiltrates Assessment and plan: -Acute metabolic encephalopathy, likely combination of sepsis, severe renal failure from pneumonia: Slow to respond Follow clinically -Bilateral pneumonia, suspect gram-negative organism. Suspect additional aspiration pneumonia: Not improving IV Zosyn -Sepsis with lactic acidosis: No fever. White count climbing IV fluids. IV Zosyn -Acute blood loss anemia from GI bleed Follow H&H -Acute hypoxic respiratory failure secondary to pneumonia: Better Patient was put on BiPAP initially. Now 94% on room air -Acute kidney injury possibly combination of prerenal and ATN from sepsis dehydration. Poor Introl oral intake for a few days.: Slow to respond IV fluids. D5 0.45. Admission creatinine 3.56. Today 1.44. Decrease IV fluids -Acute GI bleed with one episode of bloody bowel movement Follow H&H. surgery no current intervention. -Primary osteoarthritis Pain medications as needed -Cognitive impairment from underlying Alzheimer's dementia -Hypothyroid IV Synthroid 25 g every 48 hours -DO NOT RESUSCITATE Continue IV Zosyn. Eating poorly. Continue supportive care. Consult ID. Prognosis guarded
[2021-07-22] MEDS: ENOXAPARIN 30 MG/0.3 ML SYRINGE SQ SCH (16:26)
[2021-07-22] MEDS: ATORVASTATIN 10 MG TAB PO SCH (20:16)
[2021-07-22] MEDS: SODIUM CHLORIDE 0.9% 1,000 ML IV SCH (20:18)
--- NOTE | 2021-07-23 07:18 | P.CONS ---
History of Present Illness - Reason for Consult Consult date: 07/22/21 sepsis Requesting physician: Jericho Mckeon - Chief Complaint unresponsive x few days - History of Present Illness History of present illness : Patient is 81-year-old female is being brought in the hospital about a week ago on 07/17/2021 for evaluation of an episode of unresponsiveness patient is a resident of the assisted living facility on arrival of the EMS the patient was noticed to be unresponsive she patient was hypoxic with O2 sats of 70% EMS notes the patient has a slight right-sided facial droop patient on presentation to the hospital was afebrile a nd no fever has been recorded during this admission patient did have a elevated version of 15.2 there is up to 22.6 today patient did have elevated lactic acid elevated BUN and creatinine those have subsequently improved with hydration patient UA was negative velasquez PCR was negative patient did have a chest x-ray on admission moderate bilateral patchy pneumonia which is new compared to old exam and the patient has been treated with Zosyn for possible pneumonia patient has been seen by her nephrology neurology pulmonary and surgical services patient did have a blood culture drawn on admission which was reported positive on 07/20/21 and has been finalized as MSSA infectious disease was consulted this evening for sepsis most information has been obtained from review the chart as the patient did not provide any reliable history did not answer any questions Review of system: Positive point has been mentioned in HPI complete review could not be obtained because of underlying mental status. Past medical history : Reviewed, documented below Past surgical history : Reviewed, documented below Social history: Reviewed, documented below Medications: Reviewed, as documented below EXAMINATION: Vital sigans= Reviewed and documented below GENERAL DESCRIPTION: Elderly female lying in bed, no distress. No tachypnea or accessory muscle of respiration use. HEENT: Shows Pallor , no scleral icterus. Oral mucous membrane is dry. NECK: Trachea central, no thyromegaly. LUNGS: Unlabored breathing. Decreased breath sound at the base. No wheeze or crackle. HEART: S1, S2, regular rate and rhythm. ABDOMEN: Soft, no tenderness , guarding or rigidity EXTREMITIES: No edema of feet. SKIN: No rash, no masses palpable. NEUROLOGICAL: The patient is awake, nonverbal orientation but undetermined LABS AND RADIOLOGY: Reviewed results see below Assessment : Patient with MSSA bacteremia in this patient presented to hospital about a week ago after the [facility] patient currently with evidence of diffuse infiltrate on the chest x-ray patient to not have any tenderness on abdominal examination and no evidence of any skin or soft tissue source question of possible bowel endovascular source for this bacteremia Plan: 1-discontinue Zosyn 2-start the patient on cefazolin 2 g every 8 hour 3-blood cultures will be repeated document clearance of bacteremia 4-we will obtain echocardiogram We will follow on clinical condition and cultures to further adjust medication if needed Thank you for this consultation we will follow the patient along with you Past Medical History Past Medical History: Unable to Obtain Additional Past Medical History / Comment(s): history obtained from daughter History of Any Multi-Drug Resistant Organisms: Unobtainable Past Surgical History: Unable to Obtain Past Anesthesia/Blood Transfusion Reactions: No Reported Reaction Past Psychological History: Unable to Obtain Smoking Status: Unknown if ever smoked Past Alcohol Use History: Unable to Obtain Past Drug Use History: Unable to Obtain Medications and Allergies Home Medications Medication Instructions Recorded Confirmed Type Ascorbic Acid [Vitamin C] 500 mg PO BID@0700,1900 07/17/21 07/17/21 History Calcium Carbonate [Tums] 500 - 1,000 mg PO TID PRN 07/17/21 07/17/21 History Calcium Polycarbophil [Fiber-Lax] 625 mg PO DAILY@0700 07/17/21 07/17/21 History Cholecalciferol [Vitamin D3 (25 50 mcg PO DAILY@0700 07/17/21 07/17/21 History Mcg = 1000 Iu)] Cyanocobalamin (Vitamin B-12) 1,000 mcg PO DAILY@0700 07/17/21 07/17/21 History [Vitamin B-12] Folic Acid 1 mg PO DAILY@0700 07/17/21 07/17/21 History Furosemide [Lasix] 20 mg PO Q48H 07/17/21 07/17/21 History Lactulose 20 gm PO Q1H PRN 07/17/21 07/17/21 History Levothyroxine Sodium [Synthroid] 25 mcg PO DAILY@0700 07/17/21 07/17/21 History Liquacel 30 ml PO BID@0700,1900 07/17/21 07/17/21 History Magnesium Hydroxide [Milk of 2,400 mg PO DAILY PRN 07/17/21 07/17/21 History Magnesia] Memantine [Namenda] 10 mg PO BID@0700,1900 07/17/21 07/17/21 History Metoprolol Succinate [Toprol XL] 25 mg PO DAILY@0700 07/17/21 07/17/21 History Sennosides/Docusate Sodium [Senna 2 cap PO HS@1900 07/17/21 07/17/21 History Plus 8.6-50 mg Softgel] Zinc Sulfate [Orazinc] 220 mg PO DAILY@0700 07/17/21 07/17/21 History Allergies Allergy/AdvReac Type Severity Reaction Status Date / Time No Known Allergies Allergy Verified 07/17/21 16:56 Physical Exam Vitals: Vital Signs Temp Pulse Resp BP Pulse Ox 07/22/21 20:00 108 H 16 07/22/21 16:00 108 H 16 102/65 96 07/22/21 12:00 103 H 16 117/61 92 L 07/22/21 08:00 98.4 F 107 H 18 106/74 92 L 07/22/21 04:00 98.0 F 105 H 18 98/64 94 L 07/22/21 01:55 108 H 18 07/21/21 23:06 97.4 F L 108 H 18 105/71 94 L Intake and Output 07/22/21 07/22/21 07/22/21 06:59 14:59 22:59 Intake Total 800 718 Output Total 100 Balance 700 718 Intake: IV 800 400 D5 800 400 Intake, IV Titration 200 Amount Piperacillin-Tazobactam 3 100 .375 gm In Sodium Chloride 0.9% 100 ml @ 25 mls/hr IVPB Q8HR [facility] Rx# :[id number] Sodium Chloride 0.9% 1, 100 000 ml @ 50 mls/hr IV . Q20H [facility] Rx#:[id number] Oral 118 Output: Urine 100 Other: Voiding Method External Catheter External Catheter External Catheter # Voids 1 Weight 90.5 kg Results CBC & Chem 7: 07/22/21 07:27 07/22/21 07:27 Labs: Abnormal Lab Results - Last 24 Hours (Table) 07/22/21 07/22/21 Range/Units 07:27 07:27 WBC 22.6 H (3.8-10.6) k/uL RBC 3.24 L (3.80-5.40) m/uL Hgb 10.1 L (11.4-16.0) gm/dL Hct 31.3 L (34.0-46.0) % RDW 15.8 H (11.5-15.5) % Plt Count 92 L (150-450) k/uL Neutrophils # (Manual) 19.20 H (1.3-7.7) k/uL Metamyelocytes # (Man) 0.45 H (0) k/uL Myelocytes # (Manual) 0.23 H (0) k/uL Sodium 134 L (137-145) mmol/L Potassium 3.1 L (3.5-5.1) mmol/L Carbon Dioxide 18 L (22-30) mmol/L BUN 54 H (7-17) mg/dL Creatinine 1.44 H (0.52-1.04) mg/dL Glucose 109 H (74-99) mg/dL Calcium 7.5 L (8.4-10.2) mg/dL
[2021-07-23 07:30] LABS: Calcium 7.9 mg/dL (8.4-10.2); Potassium 3.2 mmol/L (3.5-5.1)
[2021-07-23] MEDS: PANTOPRAZOLE 40 MG/10 ML VIAL IVP SCH (09:13)
[2021-07-23] MEDS: SODIUM CHLORIDE 0.9% 1,000 ML IV SCH (09:14)
[2021-07-23] MEDS: FOLIC ACID 1 MG TAB PO SCH (09:14)
[2021-07-23] MEDS ORDERED: POTASSIUM CHLORIDE ER 20 MEQ TAB.ER PO STA (09:30)
--- NOTE | 2021-07-23 10:00 | ECHOF ---
Referral Reason:bacteremia MEASUREMENTS -------- HEIGHT: 165.1 cm WEIGHT: 72.1 kg BP: IVSd: 1.2 cm (0.6 - 1.1) LVIDd: 2.7 cm (3.9 - 5.3) LVPWd: 1.3 cm (0.6 - 1.1) IVSs: 1.3 cm LVIDs: 1.9 cm LVPWs: 1.5 cm Ao Diam: 3.1 cm (2.0 - 3.7) AV Cusp: 1.1 cm (1.5 - 2.6) LA Diam: 3.6 cm (2.7 - 3.8) MV EXCURSION: 12.842 mm (> 18.000) MV EF SLOPE: 64 mm/s (70 - 150) EPSS: 0.5 cm MV E Killian: 1.23 m/s MV DecT: 135 ms MV A Killian: 0.42 m/s MV E/A Ratio: 2.96 RAP: 5.00 mmHg RVSP: 13.38 mmHg FINDINGS -------- Undetermined rhythm. This was a technically adequate study. The left ventricular size is normal. There is mild concentric left ventricular hypertrophy. Overa ll left ventricular systolic function is mildly impaired with, an EF between 45 - 50 %. Septal Hypo kinesis The right ventricle is normal in size. The left atrial size is normal. The right atrial size is normal. There is mild aortic valve sclerosis. Trace amount of aortic regurgitation. Mild mitral annular calcification present. Mild mitral regurgitation is present. Mild tricuspid regurgitation present. Right ventricular systolic pressure is normal at < 35 mmHg. The pulmonic valve was not well visualized. There is no pericardial effusion. CONCLUSIONS -------- 1. The left ventricular size is normal. 2. There is mild concentric left ventricular hypertrophy. 3. Overall left ventricular systolic function is mildly impaired with, an EF between 45 - 50 %. 4. Septal Hypokinesis 5. The right ventricle is normal in size. 6. The left atrial size is normal. 7. The right atrial size is normal. 8. There is mild aortic valve sclerosis. 9. Trace amount of aortic regurgitation. 10. Mild mitral annular calcification present. 11. Mild mitral regurgitation is present. 12. Mild tricuspid regurgitation present. 13. The pulmonic valve was not well visualized. 14. There is no pericardial effusion. [employer]NCE: Gem Al RDCS
[2021-07-23 10:03] LABS: C Reactive Protein 36.9 mg/dL (<1.0)
[2021-07-23] MEDS: POTASSIUM CHLORIDE 10 MEQ in WATER FOR INJECTION 1 100ML.BAG IVPB SCH ×2 (11:30→17:35)
--- NOTE | 2021-07-23 14:51 | PN ---
PROGRESS NOTE Patient is seen for followup for acute kidney injury. The patient's renal function had been improving. Today the serum creatinine is slightly higher at 1.5 although patient continues to have good urine output. Overall she has improved. She is awake, did answer some questions. She needs help with food. PHYSICAL EXAMINATION: On examination today, blood pressure 109/75, heart rate 90 per minute. Patient is afebrile. Examination of the heart S1, S2. Examination of the lungs, bilateral breath sounds are heard. Abdomen is soft, nontender. Examination of lower extremities: Edema trace bilaterally. VENDING TECHNICIAN exam difficult to assess as patient does not communicate much. LAB: Show sodium 136, potassium 3.2, BUN 43, creatinine 1.5, hemoglobin 10.1. ASSESSMENT: 1. Acute kidney injury, prerenal, currently improving with IV hydration. 2. Hypokalemia secondary to decreased oral intake, will replace. 3. Hypernatremia, improved with D5W. IV fluids have been switched to normal saline. Will follow up on labs again in a.m. 4. Staphylococcus aureus bacteremia. Repeat blood cultures pending, ordered yesterday. PLAN: Repeat labs in a.m. Replace potassium. MMODL / IJN: [id number] /
--- NOTE | 2021-07-23 15:04 | P.PN ---
Subjective Progress Note Date: 07/23/21 07/23/2021: Patient clinically unchanged. Laying comfortably in the bed. Patient is almost mute, mumbles slightly. Patient smiled today. 07/22/2021: Patient laying comfortably in the bed. Patient keeps her eyes closed. Does open her eyes to calling her name. Trying to communicate a little. Slightly better than the last visit. Offers no complaints. 07/20/2021: Patient was seen for a follow-up. Patient initially seen by Dr. Leroy Maciel. Please refer to his note for details. Patient is an 81-year-old female, who came with questionable left-sided weakness. Patient has advanced dementia. She is at baseline alert and oriented 0. She only gives one to 2 words answers. Patient's daughter was also present. Patient currently on Namenda 10 mg twice a day. She does not remember if patient has ever been on Aricept. Patient also has developed sepsis because of Staphylococcus aureus in the blood cultures times twice. Patient also has developed GI bleed for which patient was seen by Gen. surgery. No plans for upper or lower endoscopy. Objective - Vital Signs Vital signs: Vital Signs Temp 97.9 F 07/23/21 04:00 Pulse 90 07/23/21 04:00 Resp 18 07/23/21 04:00 BP 109/75 07/23/21 04:00 Pulse Ox 94 L 07/23/21 04:00 Intake & Output 07/22/21 07/23/21 07/23/21 18:59 06:59 18:59 Intake Total 718 400 236 Output Total 350 200 Balance 718 50 36 Weight 87 kg Intake: IV 400 D5 400 Intake, IV Titration 200 400 Amount Piperacillin-Tazobactam 3 100 .375 gm In Sodium Chloride 0.9% 100 ml @ 25 mls/hr IVPB Q8HR [facility] Rx# :[id number] Sodium Chloride 0.9% 1, 100 400 000 ml @ 50 mls/hr IV . Q20H [facility] Rx#:[id number] Oral 118 236 Output: Urine 350 200 Other: Voiding Method External Catheter External Catheter # Voids 1 # Bowel Movements 1 - Exam Patient very alert and awake today. She makes good eye contact. Patient does not know her name, states "I don't know". When I asked her to name objects like a pen, or eyeglasses, patient was trying to vocalize some words, although was more mumbling otherwise. Her baseline is she only speaks one or 2 words answers related to dementia. Patient's face is symmetric. Pupils are round and reacting. Extraocular muscles appears intact. Patient's tone is equal in both arms. On manually lifting it up, both arms she brings it down slowly and equally. No obvious focality. - Labs CBC & Chem 7: 07/22/21 07:27 07/23/21 06:46 Labs: Abnormal Lab Results - Last 24 Hours (Table) 07/23/21 07/23/21 07/23/21 Range/Units 06:46 06:46 06:46 ESR 99 H (0-20) mm/hr Sodium 136 L (137-145) mmol/L Potassium 3.2 L (3.5-5.1) mmol/L BUN 43 H (7-17) mg/dL Creatinine 1.56 H (0.52-1.04) mg/dL Glucose 72 L (74-99) mg/dL Calcium 7.9 L (8.4-10.2) mg/dL C-Reactive Protein 36.9 H (<1.0) mg/dL Procalcitonin 3.83 H (0.02-0.09) ng/mL Microbiology - Last 24 Hours (Table) 07/22/21 12:31 Blood Culture - Preliminary Blood No Growth after 24 hours Assessment and Plan Assessment: * Altered mental status likely due to hypoxic/toxic metabolic encephalopathy due to pneumonia and bacteremia/sepsis. * Possible ?left upper extremity weakness/ hand weakness. Possible stroke (two CT head are negative for acute or subacute stroke). * Acute kidney insufficiency * Positive Fecal occult blood. * Advanced dementia (is oriented X0) * History of hypothyroidism Plan: * Patient's altered mental status is likely related to toxic metabolic encephalopathy. Hopefully her encephalopathy will improve once bacteremia and other medical conditions, under control. However with her severe dementia, acute infections often can lead to clinical setback, and patient may not regain functional recovery back to baseline. * Suggest resuming aspirin 81 mg daily as early as cleared by IM/general surgery. * 2-D echo revealed normal left ventricular size. Mild concentric LVH. EF is mildly impaired between 45-50%. Septal hypokinesis. Left atrial size is norm al. Mild mitral annular calcification. * Telemetric monitoring yesterday as well as today showing atrial fibrillation. Suggest cardiology consultation. Consider anticoagulation, if no medical contraindication. Discussed with Dr Mckeon in detail. * Continue Lipitor 10 mg at bedtime. Lipid panel with cholesterol 84, LDL 35, HDL 27 and triglycerides 105. * B12 842, folate 6.5, TSH 5.02. We will start folate replacement. * Patient on Lovenox for DVT prophylaxis. * Pulmonary team is on board * Nephrology team is consulted * We'll defer the rest of the medical management to the primary team. * We will follow sporadically. Recent tests: Stool occult blood was positive Ward virus PCR was not detected Ammonia level is 18. CT of the head is reported as no evident marriage. Suspect some interval increase in the degree of ventriculomegaly, consider hydrocephalus, normal pressure hydrocephalus. Age-related changes of atrophy and chronic small vessel ischemia. 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 There is no evidence of intracranial hemodynamic stenosis. Per the ED notes the patient last normal was unclear. Patient is not a TPA candidate since of unclear of her medical history as well as the time of onset. And a TPA risk outweighed the benefit. Repeat CT head: Reported as no acute intracranial hemorrhage or midline shift or mass effect. Chronic changes at. No significant change since prior.
--- NOTE | 2021-07-23 17:09 | P.PN ---
Progress Note - Text Progress Note Date: 07/23/21 Chief Complaint: Decreased responsiveness The following history per ER notes: This 81-year-old patient was brought by the EMS from assisted living. She was found to be unresponsive this morning. It is unknown when the patient was last seen normal. EMS found the patient to be unresponsive. She was hypoxic with oxygen level in 70s percent. Placed on 15 L nonrebreather. And patient started to become more alert. Humerus was told that the patient has a left hand we akness. Initial heart rate was 124. He was moving her limbs to painful stimuli in the ER. Blood glucose in the ER was 165. Stroke protocol was activated was not felt to be a TPA candidate. Daughter Doris told the ER physician that for last several days patient has been getting weak. worker in the assisted living also tested positive for COVID. The patient had tested negative. Patient had decreased oral intake in the last 2-3 days. Patient has a history of dementia thyroid disease and hiatal hernia. Patient had elevated BUN and creatinine. Sodium bicarbonate drip was started. Patient was on BiPAP. Also received some fluid bolus. When I came to see the patient.- lethargic but arousable. Doesn't answer questions. Moving all limbs. Getting IV fluids Admitted with acute metabolic encephalopathy, bilateral pneumonia, sepsis with lactic acidosis, acute hypoxic respiratory failure, acute kidney injury felt to be combination of prerenal and ATN. Started IV Zosyn fluids oxygen supplementation. July 19: Patient is bit more awake today. Rather tired. Not answering questions. Pulse oxing well 94% on room air. IV antibiotic. July 20: Overnight patient had one large bloody bowel movement. Awake. Tired. No pain. Surgery consulted July 21: Patient is advanced to full liquid diet. Will have the feeding done with assistance. Laying in bed. Tired. Not really speaking much. July 22: Patient is barely eating much. Diet. Laying in bed. Not in distress. On IV Zosyn. Blood cultures positive for MSSA. July 23: Telemetry strips showing possible A. fib. Discussed with neurology. Oral intake somewhat better. Pulse ox 94%. Because patient had a large bloody bowel movement 3 days ago she noted a good candidate for eliquis. We'll start the patient on aspirin and she is only on Protonix. If she was to bleed then aspirin would have to be discontinued also. Review of systems cannot be done patient rather lethargic. Active Medications Acetaminophen (Acetaminophen Tab 325 Mg Tab) 650 mg PO Q6HR PRN PRN Reason: Mild Pain or Fever > 100.5 Atorvastatin Calcium (Atorvastatin 10 Mg Tab) 10 mg PO HS [facility] Last Admin: 07/22/21 20:16 Dose: 10 mg Documented by: Folic Acid (Folic Acid 1 Mg Tab) 1 mg PO DAILY [facility] Last Admin: 07/23/21 09:14 Dose: 1 mg Documented by: Sodium Chloride (Saline 0.9%) 1,000 mls @ 50 mls/hr IV .Q20H [facility] Last Admin: 07/23/21 09:14 Dose: 50 mls/hr Documented by: Cefazolin Sodium 2 gm/ Sodium (Chloride) 50 mls @ 100 mls/hr IVPB Q12HR [facility] Levothyroxine Sodium (Levothyroxine 25 Mcg Tab) 25 mcg PO DAILY@0630 [facility] Naloxone HCl (Naloxone 0.4 Mg/Ml 1 Ml Vial) 0.2 mg IV Q2M PRN PRN Reason: Opioid Reversal Ondansetron HCl (Ondansetron 4 Mg/2 Ml Vial) 4 mg IVP Q8HR PRN PRN Reason: Nausea And Vomiting Pantoprazole Sodium (Pantoprazole 40 Mg/10 Ml Vial) 40 mg IVP BID [facility] Last Admin: 07/23/21 09:13 Dose: 40 mg Documented by: Past medical history: Dementia, hypothyroid, hiatal hernia Social history: Unable to obtain. Resident of [facility] Family history: Patient cannot tell Physical examination: VITAL SIGNS: 98, 101, 18, 105/70, 94% room air GENERAL: Laying in bed, more awake tired EYES: Pupils equal. Conjunctiva normal. HEENT: External appearance of nose and ears normal, oral cavity dry mucous membrane. NECK: JVD not raised; masses not palpable. HEART: Heart sounds irregular; no edema. LUNGS: Respiratory rate increased; decreased breath sounds. ABDOMEN: Soft, nontender, liver spleen not palpable, no masses palpable. PSYCH: Not answering questions MUSCULOSKELETAL: Evidence of OA in several joints INVESTIGATIONS, reviewed in the clinical context: July 23: Potassium 3.2 BUN 43 creatinine 1.56 July 22: WBC 22.6 hemoglobin 10.1 platelets 92 sodium 134 percussion 3.1 BUN 54 creatinine 1.44 Chest x-ray film personally reviewed by me-ruben infiltrates bilateral July 21: White count 19.3 hemoglobin 10.3 platelets 109and 3.8 BUN 69 creatinine 2.07 July 20: White count 18.6 hemoglobin 10.4 platelets 144 sodium 143 progression 3.2 BUN 83 creatinine 2.04 EEG: Negative for epileptiform activity. Suggestive of encephalopathy. July 19: Sodium 147 potassium 3.8. 95 creatinine 2.91 Renal ultrasound: Suboptimal study. July 18: Sodium 142 potassium 3 BUN 95 creatinine 3.56 lactic acid 4.9 WBC 15.2 hemoglobin 13.4 platelets 243 INR 1.4 sodium 140 potassium 4.2 BUN 97 creatinine 4.02 Lactic acid 10.4 magnesium 2.4 creatinine kind is 182 troponin I 0.685 albumin 2.7 UA negative for leukoesterase and nitrite Coronavirus [PCR]: Not detected EKG tracing personally reviewed by me-normal sinus rhythm, poor R-wave progression, intraventricular block, ST-T wave changes. CT brain without contrast: No evidence of any stroke. Some increase in degree of ventriculomegaly. AIDS related changes. Consider hydrocephalus/NPH CT angiogram head and neck: Fusiform stenosis of cervical internal carotid arteries bilaterally. Chest x-ray film personally reviewed by me-bilateral infiltrates Assessment and plan: -Acute metabolic encephalopathy, likely combination of sepsis, severe renal failure from pneumonia: Slow improvement Follow clinically -Bilateral pneumonia, suspect gram-negative organism. Suspect additional aspiration pneumonia: With cultures positive for MSSA IV Ancef -Sepsis with lactic acidosis: No fever. White count climbing. Left culture positive from July 17: MSSA IV fluids. IV Ancef -Acute blood loss anemia from GI bleed Follow H&H. Protonix 40 mg twice a day -Paroxysmal atrial fibrillation No anticoagulation because of GI bleed. Baby aspirin -Acute hypoxic respiratory failure secondary to pneumonia: Better Patient was put on BiPAP initially. Now 94% on room air -Acute kidney injury possibly combination of prerenal and ATN from sepsis dehydration. Poor Introl oral intake for a few days.: Slow to respond IV fluids. D5 0.45. Admission creatinine 3.56. Today 1.44. Decrease IV fluids -Acute GI bleed with one episode of bloody bowel movement Follow H&H. surgery no current intervention. -Primary osteoarthritis Pain medications as needed -Cognitive impairment from underlying Alzheimer's dementia -Hypothyroid Synthroid 25 g daily -DO NOT RESUSCITATE Some improvement in oral intake. As discussed with Dr. Fay from neurology. No eliquis. Baby aspirin. Watch H&H. Repeat cultures pending. Total time spent today about 45 minutes with over 25 minutes of discussion.
[2021-07-23] MEDS: PANTOPRAZOLE 40 MG TABLET PO SCH (17:35)
--- NOTE | 2021-07-23 17:46 | P.PN ---
Subjective Progress Note Date: 07/23/21 Principal diagnosis: Dyspnea On 12 O2 2000 patient seen in follow-up on selective care unit, she is resting comfortably in bed, she remains on 2 L of oxygen pulse ox is 94%, afebrile, hemodynamically patient has been stable, breathing is nonlabored, patient has baseline dementia, does not verbalize much, no fever, or chills. Neurology is following, clinically patient has been unchanged, patient is almost mute, she may mumble at times slightly. She is being treated for MSSA bacteremia, ID service is following, patient is currently on consult. Follow blood cultures were sent yesterday, and have shown no growth at the 24-hour rylee. Final Blood cultures are still pending. Echocardiogram has been completed, showing mild concentric LVH, EF of 45-50%, mild MR, mild TR, no evidence of pulmonary hypertension. Clinically patient is unchanged, does not appear to be in any acute distress, renal function is stable over last couple days, overall improved. Serum sodium is 136, potassium 3.2, chloride is 106, BUN of 43, creatinine is 1.56. ProCalcitonin level is 3.83, significantly improved from 36.1. Objective - Vital Signs Vital signs: Vital Signs Temp 98.0 F 07/23/21 12:00 Pulse 101 H 07/23/21 14:00 Resp 18 07/23/21 14:00 BP 105/70 07/23/21 12:00 Pulse Ox 94 L 07/23/21 12:00 Intake & Output 07/22/21 07/23/21 07/23/21 18:59 06:59 18:59 Intake Total 718 400 236 Output Total 350 200 Balance 718 50 36 Weight 87 kg Intake: IV 400 D5 400 Intake, IV Titration 200 400 Amount Piperacillin-Tazobactam 3 100 .375 gm In Sodium Chloride 0.9% 100 ml @ 25 mls/hr IVPB Q8HR [facility] Rx# :[id number] Sodium Chloride 0.9% 1, 100 400 000 ml @ 50 mls/hr IV . Q20H [facility] Rx#:[id number] Oral 118 236 Output: Urine 350 200 Other: Voiding Method External Catheter External Catheter External Catheter # Voids 1 # Bowel Movements 1 - Exam GENERAL EXAM: Alert, 81-year-old white female, resting in bed, quietly, patient is non-verbal or minimally verbal at baseline, she has underlying dementia, doesn't appear to be in any acute distress, she is on 2 L of oxygen pulse ox is 94%, comfortable in no apparent distress. HEAD: Normocephalic/atraumatic. EYES: Normal reaction of pupils, equal size. Conjunctiva pink, sclera white. NOSE: Clear with pink turbinates. THROAT: No erythema or exudates. NECK: No masses, no JVD, no thyroid enlargement, no adenopathy. CHEST: No chest wall deformity. Symmetrical expansion. LUNGS: Equal air entry with no crackles, wheeze, rhonchi or dullness. CVS: Regular rate and rhythm, normal S1 and S2, no gallops, no murmurs, no rubs ABDOMEN: Soft, nontender. No hepatosplenomegaly, normal bowel sounds, no guarding or rigidity. EXTREMITIES: No clubbing, no edema, no cyanosis, 2+ pulses and upper and lower extremities. MUSCULOSKELETAL: Muscle strength and tone normal. SPINE: No scoliosis or deformity SKIN: No rashes CENTRAL NERVOUS SYSTEM: Alert and oriented -0. Patient has underlying dementia, is minimally verbal. No focal deficits, tone is normal in all 4 extremities. - Labs CBC & Chem 7: 07/22/21 07:27 07/23/21 06:46 Labs: Abnormal Lab Results - Last 24 Hours (Table) 07/23/21 07/23/21 07/23/21 Range/Units 06:46 06:46 06:46 ESR 99 H (0-20) mm/hr Sodium 136 L (137-145) mmol/L Potassium 3.2 L (3.5-5.1) mmol/L BUN 43 H (7-17) mg/dL Creatinine 1.56 H (0.52-1.04) mg/dL Glucose 72 L (74-99) mg/dL Calcium 7.9 L (8.4-10.2) mg/dL C-Reactive Protein 36.9 H (<1.0) mg/dL Procalcitonin 3.83 H (0.02-0.09) ng/mL Microbiology - Last 24 Hours (Table) 07/22/21 12:31 Blood Culture - Preliminary Blood No Growth after 24 hours Assessment and Plan Plan: Assessment: 1 staphylococcal pneumonia and MSSA bacteremia The patient had Acute hypoxia, which is likely multifactorial, in part related to bilateral pneumonia, and also fluid overload. With the patient's poor mental status, aspiration should be given strong consideration. The pro-calcitonin level was quite elevated. Chest x-ray from today shows stable bilateral interstitial alveolar infiltrates and a nother infiltrate in left upper lobe. The cultures positive for MSSA and the patient remains on IV Zosyn. Consider a staphylococcal pneumonia with secondary hypoxic respiratory failure, currently on room air oxygen.a repeat chest x-ray will be obtained for tomorrow, clinically stable for now. 2 Mental status changes, currently being evaluated by the primary service. No major change in her mental status 3 Acute kidney injury secondary to ATN, improving 4 Metabolic acidosis secondary to acute kidney injury, non anion gap 5 History of hypertension. 6 History of dementia. 7 Hypothyroidism. 8 MSSA/ staph aureus in the blood on 2 separate blood cultures from 07/17/2021, given IV Zosyn. Plan: Continue antibiotics per ID service recommendations Patient is currently on Vital signs have been stable Stable oxygenation on 2 L of oxygen on room air Does not appear to be in any acute distress, no signs of any respiratory difficulty Remains encephalopathic, neurology swallowing Breathing is nonlabored Follow blood cultures have shown no growth at the 24-hour rylee CODE STATUS is DO NOT RESUSCITATE Overall prognosis is extremely guarded Clinically has been stable We will need placement to ECF I performed a history & physical examination of the patient and discussed their management with my nurse practitioner, Leatha Amos. I reviewed the nurse practitioner's note and agree with the documented findings and plan of care. Lung sounds are positive for dim crackles throughout the lung moy. The findings and the impression was discussed with the patient. I attest to the documentation by the nurse practitioner. Time with Patient: Less than 30
[2021-07-23] MEDS: ENOXAPARIN 30 MG/0.3 ML SYRINGE SQ SCH (18:40)
[2021-07-23] MEDS: ATORVASTATIN 10 MG TAB PO SCH (20:00)
[2021-07-23] MEDS ORDERED: APIXABAN 2.5 MG TABLET PO SCH (21:00)
--- NOTE | 2021-07-23 22:38 | PN ---
PROGRESS NOTE DATE OF SERVICE: 07/23/2021 REASON FOR FOLLOWUP: bacteremia. INTERVAL HISTORY: The patient is afebrile. The patient is slightly more awake and alert today. She is currently breathing comfortably on room air. She was unable to provide any history. No vomiting, diarrhea or other changes reported by the nursing staff. PHYSICAL EXAMINATION: Blood pressure 91/63 with a pulse of 111, temperature 97.9. She is 94% on room air. General description is an elderly female lying in bed in no distress. Respiratory system: Unlabored breathing, decreased intensity of breath sounds. No wheeze. Heart S1, S2. Regular rate and rhythm. Abdomen soft, no tenderness. LABS: Creatinine is 1.56. CRP is 36.9. is elevated as well as procalcitonin. Blood culture remains so far negative. DIAGNOSTIC IMPRESSION AND PLAN: Patient with MSSA bacteremia. Echocardiogram negative for any vegetation. The patient is covered with cefazolin, currently with no clear focus of infection. Will request a WBC scan and may get further workup. Continue supportive care. MMODL / IJN: [id number] /
[2021-07-24] MEDS: SODIUM CHLORIDE 0.9% 1,000 ML IV SCH (02:53)
[2021-07-24] MEDS: LEVOTHYROXINE 25 MCG TAB PO SCH (06:26)
[2021-07-24] MEDS: PANTOPRAZOLE 40 MG TABLET PO SCH ×2 (06:27→18:46)
[2021-07-24] MEDS: FOLIC ACID 1 MG TAB PO SCH (09:45)
[2021-07-24] MEDS: ASPIRIN 81 MG PO SCH (09:45)
[2021-07-24 10:09] LABS: Calcium 7.8 mg/dL (8.4-10.2); Potassium 3.4 mmol/L (3.5-5.1)
[2021-07-24 10:11] LABS: Basophils # (A) 0.2 k/uL (0-0.2); Basophils % (A) 1 %; Eosinophils # (A) 0.2 k/uL (0-0.7); Eosinophils % (A) 1 %; HGB 10.3 gm/dL (11.4-16.0); Lymphocytes # (A) 0.5 k/uL (1.0-4.8); Lymphocytes % (A) 3 %; MCH 30.7 pg (25.0-35.0); MCHC 32.1 g/dL (31.0-37.0); MCV 95.8 fL (80.0-100.0); Mean Platelet Volume 9.6; Monocytes # (A) 0.5 k/uL (0-1.0); Monocytes % (A) 3 %; Neutrophils # (A) 17.8 k/uL (1.3-7.7); Neutrophils % (A) 92 %; Platelet Count 114 k/uL (150-450); RBC 3.34 m/uL (3.80-5.40); RDW 15.7 % (11.5-15.5); WBC 19.4 k/uL (3.8-10.6)
[2021-07-24 10:57] VITALS: BMI 28.3
--- NOTE | 2021-07-24 14:30 | P.PN ---
Progress Note - Text Progress Note Date: 07/24/21 Chief Complaint: Decreased responsiveness The following history per ER notes: This 81-year-old patient was brought by the EMS from assisted living. She was found to be unresponsive this morning. It is unknown when the patient was last seen normal. EMS found the patient to be unresponsive. She was hypoxic with oxygen level in 70s percent. Placed on 15 L nonrebreather. And patient started to become more alert. Humerus was told that the patient has a left hand we akness. Initial heart rate was 124. He was moving her limbs to painful stimuli in the ER. Blood glucose in the ER was 165. Stroke protocol was activated was not felt to be a TPA candidate. Daughter Doris told the ER physician that for last several days patient has been getting weak. worker in the assisted living also tested positive for COVID. The patient had tested negative. Patient had decreased oral intake in the last 2-3 days. Patient has a history of dementia thyroid disease and hiatal hernia. Patient had elevated BUN and creatinine. Sodium bicarbonate drip was started. Patient was on BiPAP. Also received some fluid bolus. When I came to see the patient.- lethargic but arousable. Doesn't answer questions. Moving all limbs. Getting IV fluids Admitted with acute metabolic encephalopathy, bilateral pneumonia, sepsis with lactic acidosis, acute hypoxic respiratory failure, acute kidney injury felt to be combination of prerenal and ATN. Started IV Zosyn fluids oxygen supplementation. July 19: Patient is bit more awake today. Rather tired. Not answering questions. Pulse oxing well 94% on room air. IV antibiotic. July 20: Overnight patient had one large bloody bowel movement. Awake. Tired. No pain. Surgery consulted July 21: Patient is advanced to full liquid diet. Will have the feeding done with assistance. Laying in bed. Tired. Not really speaking much. July 22: Patient is barely eating much. Diet. Laying in bed. Not in distress. On IV Zosyn. Blood cultures positive for MSSA. July 23: Telemetry strips showing possible A. fib. Discussed with neurology. Oral intake somewhat better. Pulse ox 94%. Because patient had a large bloody bowel movement 3 days ago she noted a good candidate for eliquis. We'll start the patient on aspirin and she is only on Protonix. If she was to bleed then aspirin would have to be discontinued also. July 24: Congested cough. Eating between 25-50%. Tired. Reclining, more awake. WBC scan ordered by ID Review of systems: Was done for constitutional, cardiovascular, GI, pulmonary. relevant finding as above Active Medications Acetaminophen (Acetaminophen Tab 325 Mg Tab) 650 mg PO Q6HR PRN PRN Reason: Mild Pain or Fever > 100.5 Aspirin (Aspirin 81 Mg) 81 mg PO DAILY [facility] Last Admin: 07/24/21 09:45 Dose: 81 mg Documented by: Atorvastatin Calcium (Atorvastatin 10 Mg Tab) 10 mg PO HS [facility] Last Admin: 07/23/21 20:00 Dose: 10 mg Documented by: Folic Acid (Folic Acid 1 Mg Tab) 1 mg PO DAILY [facility] Last Admin: 07/24/21 09:45 Dose: 1 mg Documented by: Sodium Chloride (Saline 0.9%) 1,000 mls @ 50 mls/hr IV .Q20H [facility] Last Admin: 07/24/21 02:53 Dose: Not Given Documented by: Cefazolin Sodium 2 gm/ Sodium (Chloride) 50 mls @ 100 mls/hr IVPB Q12HR [facility] Last Admin: 07/24/21 09:45 Dose: 100 mls/hr Documented by: Levothyroxine Sodium (Levothyroxine 25 Mcg Tab) 25 mcg PO DAILY@0630 [facility] Last Admin: 07/24/21 06:26 Dose: 25 mcg Documented by: Naloxone HCl (Naloxone 0.4 Mg/Ml 1 Ml Vial) 0.2 mg IV Q2M PRN PRN Reason: Opioid Reversal Ondansetron HCl (Ondansetron 4 Mg/2 Ml Vial) 4 mg IVP Q8HR PRN PRN Reason: Nausea And Vomiting Pantoprazole Sodium (Pantoprazole 40 Mg Tablet) 40 mg PO AC-BID [facility] Last Admin: 07/24/21 06:27 Dose: 40 mg Documented by: Past medical history: Dementia, hypothyroid, hiatal hernia Social history: Unable to obtain. Resident of [facility] Family history: Patient cannot tell Physical examination: VITAL SIGNS: Afebrile, 98, 17, 89/56, 95% room air GENERAL: Reclining in bed, more awake, tired EYES: Pupils equal. Conjunctiva normal. HEENT: External appearance of nose and ears normal, oral cavity dry mucous membrane. NECK: JVD not raised; masses not palpable. HEART: Heart sounds irregular; no edema. LUNGS: Respiratory rate increased; some expiratory crackles ABDOMEN: Soft, nontender, liver spleen not palpable, no masses palpable. PSYCH: Answering occasional questions MUSCULOSKELETAL: Evidence of OA in several joints INVESTIGATIONS, reviewed in the clinical context: July 24: White count 19.4 hemoglobin 10.3 platelets 114 potassium 3.4 creatinine 1.56 July 23: Potassium 3.2 BUN 43 creatinine 1.56 July 22: WBC 22.6 hemoglobin 10.1 platelets 92 sodium 134 percussion 3.1 BUN 54 creatinine 1.44 Chest x-ray film personally reviewed by me-scattered infiltrates bilateral July 21: White count 19.3 hemoglobin 10.3 platelets 109and 3.8 BUN 69 creatinine 2.07 July 20: White count 18.6 hemoglobin 10.4 platelets 144 sodium 143 progression 3.2 BUN 83 creatinine 2.04 EEG: Negative for epileptiform activity. Suggestive of encephalopathy. July 19: Sodium 147 potassium 3.8. 95 creatinine 2.91 Renal ultrasound: Suboptimal study. July 18: Sodium 142 potassium 3 BUN 95 creatinine 3.56 lactic acid 4.9 WBC 15.2 hemoglobin 13.4 platelets 243 INR 1.4 sodium 140 potassium 4.2 BUN 97 creatinine 4.02 Lactic acid 10.4 magnesium 2.4 creatinine kind is 182 troponin I 0.685 albumin 2.7 UA negative for leukoesterase and nitrite Coronavirus [PCR]: Not detected EKG tracing personally reviewed by me-normal sinus rhythm, poor R-wave progression, intraventricular block, ST-T wave changes. CT brain without contrast: No evidence of any stroke. Some increase in degree of ventriculomegaly. AIDS related changes. Consider hydrocephalus/NPH CT angiogram head and neck: Fusiform stenosis of cervical internal carotid arteries bilaterally. Chest x-ray film personally reviewed by me-bilateral infiltrates Assessment and plan: -Acute metabolic encephalopathy, likely combination of sepsis, severe renal failure from pneumonia: Some improvement Follow clinically -Bilateral pneumonia, suspect gram-negative organism. Suspect additional aspiration pneumonia: Blood cultures positive for MSSA IV Ancef -Sepsis with lactic acidosis: No fever. White count elevated. Blood culture positive from July 17: MSSA IV fluids. IV Ancef. WBC nuclear scan ordered by ID today to look for another source of MSSA. -Acute blood loss anemia from GI bleed Follow H&H. Protonix 40 mg twice a day -Paroxysmal atrial fibrillation No anticoagulation because of GI bleed. Baby aspirin -Acute hypoxic respiratory failure secondary to pneumonia: Better Patient was put on BiPAP initially. Oxygenating satisfactory on room air -Acute kidney injury possibly combination of prerenal and ATN from sepsis dehydration. Poor Introl oral intake for a few days.: Slow to respond IV fluids. D5 0.45. Admission creatinine 3.56. Improved. Decrease IV fluids -Acute GI bleed with one episode of bloody bowel movement Follow H&H. surgery no current intervention. -Primary osteoarthritis Pain medications as needed -Cognitive impairment from underlying Alzheimer's dementia -Hypothyroid Synthroid 25 g daily -DO NOT RESUSCITATE Continue current medications. IV Ancef. Nuclear bone scan added for today. Continue assisted feeding. Prognosis guarded
--- NOTE | 2021-07-24 16:10 | PN ---
PROGRESS NOTE DATE OF SERVICE: 07/24/2021 REASON FOR FOLLOWUP: MSSA bacteremia. INTERVAL HISTORY: The patient is afebrile. The patient is more awake and alert today. She is breathing comfortably on room air. When asked specifically, denies any chest pain, shortness of breath or cough. No abdominal pain or diarrhea. PHYSICAL EXAMINATION: Blood pressure 89/56 with a pulse of 90, temperature 98.1. She is 95% on room air. General description is an elderly female lying in bed in no distress. Respiratory system: Unlabored breathing, decreased intensity of breath sounds. No wheeze. Heart S1, S2. Regular rate and rhythm. Abdomen soft, no tenderness. LABS: Hemoglobin is 10.8, white count 19.4, sedimentation rate of 99, creatinine 1.56. Blood culture repeat has been negative so far. DIAGNOSTIC IMPRESSION AND PLAN: Patient with MSSA bacteremia. Patient has cleared bacteremia very quickly and no obvious focus. Echocardiogram was negative. We are waiting for the WBC scan to be finalized. The patient currently does not have any localizing signs or symptoms or any focus. Patient to continue cefazolin and we will monitor her clinical course closely. MMODL / IJN: [id number] /
--- NOTE | 2021-07-24 18:31 | PN ---
PROGRESS NOTE The patient is seen for followup for acute kidney injury. The patient is currently awake, comfortable. She denies any significant complaints. PHYSICAL EXAMINATION: On examination today, blood pressure 89/56, heart rate of 98 per minute, patient is afebrile. Examination of the heart S1, S2. Examination of the lungs, bilateral breath sounds are heard. Abdomen is soft, nontender. Examination of lower extremities shows edema 1+ bilaterally. PRINTER ASSISTANT exam grossly intact. LAB: Show sodium 140, potassium 3.4, chloride 110, BUN 42, creatinine 1.56, hemoglobin 10.3 g/dL. ASSESSMENT: 1. Acute kidney injury, prerenal, currently improved with IV hydration. 2. Staphylococcus aureus bacteremia. Repeat blood cultures negative status post antibiotics in form of vancomycin, currently on cefazolin. 3. Hypernatremia, now improved and then sodium had been low and IV fluids were switched to normal saline. Today sodium is up to 140. 4. Hypokalemia status post replacement. 5. Acute hypoxic respiratory failure secondary to pneumonia, currently improved. 6. Bilateral pneumonia status post antibiotics. PLAN: Encourage increased oral intake. Continue off IV fluids for now. MMODL / IJN: [id number] /
--- NOTE | 2021-07-24 18:39 | NM ---
EXAMINATION TYPE: NM WBC whole body DATE OF EXAM: 07/24/2021 COMPARISON: NONE HISTORY: bacteremia , source TECHNIQUE: Following administration of 12.3 mCi Tc99m Ceretec. Images obtained 4 hours post injecti on. FINDINGS: Normal physiological tracer activity is noted in the liver and spleen and in the bone marrow of the a xial and appendicular skeleton. IMPRESSION: Normal white blood cell scan. No evidence for abnormal tracer activity.
[2021-07-24] MEDS: ATORVASTATIN 10 MG TAB PO SCH (20:04)
--- NOTE | 2021-07-25 01:03 | P.PN ---
Subjective Progress Note Date: 07/24/21 07/24/2021: This patient is clinically unchanged. Sometimes mumbles. Try to localize slightly, but is not intelligible. At present patient is asleep. 07/23/2021: Patient clinically unchanged. Laying comfortably in the bed. Patient is almost mute, mumbles slightly. Patient smiled today. 07/22/2021: Patient laying comfortably in the bed. Patient keeps her eyes closed. Does open her eyes to calling her name. Trying to communicate a little. Slightly better than the last visit. Offers no complaints. 07/20/2021: Patient was seen for a follow-up. Patient initially seen by Dr. Leroy Maciel. Please refer to his note for details. Patient is an 81-year-old female, who came with questionable left-sided weakness. Patient has advanced dementia. She is at baseline alert and oriented 0. She only gives one to 2 words answers. Patient's daughter was also present. Patient currently on Namenda 10 mg twice a day. She does not remember if patient has ever been on Aricept. Patient also has developed sepsis because of Staphylococcus aureus in the blood cultures times twice. Patient also has developed GI bleed for which patient was seen by Gen. surgery. No plans for upper or lower endoscopy. Objective - Vital Signs Vital signs: Vital Signs Temp 97.8 F 07/24/21 16:00 Pulse 93 07/24/21 16:00 Resp 17 07/24/21 16:00 BP 111/72 07/24/21 16:00 Pulse Ox 93 L 07/24/21 16:00 Intake & Output 07/24/21 07/24/21 07/25/21 06:59 18:59 06:59 Intake Total 118 Balance 118 Weight 87 kg Intake: Oral 118 Other: Voiding Method External Catheter External Catheter # Voids 2 # Bowel Movements 2 2 - Exam 07/22/2021: Patient is asleep. Detailed testing deferred. 07/23/2021: Patient very alert and awake today. She makes good eye contact. Patient does not know her name, states "I don't know". When I asked her to name objects like a pen, or eyeglasses, patient was trying to vocalize some words, although was more mumbling otherwise. Her baseline is she only speaks one or 2 words answers related to dementia. Patient's face is symmetric. Pupils are round and reacting. Extraocular muscles appears intact. Patient's tone is equal in both arms. On manually lifting it up, both arms she brings it down slowly and equally. No obvious focality. - Labs CBC & Chem 7: 07/24/21 09:03 07/24/21 09:03 Labs: Abnormal Lab Results - Last 24 Hours (Table) 07/24/21 07/24/21 Range/Units 09:03 09:03 WBC 19.4 H (3.8-10.6) k/uL RBC 3.34 L (3.80-5.40) m/uL Hgb 10.3 L (11.4-16.0) gm/dL Hct 32.0 L (34.0-46.0) % RDW 15.7 H (11.5-15.5) % Plt Count 114 L (150-450) k/uL Neutrophils # 17.8 H (1.3-7.7) k/uL Lymphocytes # 0.5 L (1.0-4.8) k/uL Potassium 3.4 L (3.5-5.1) mmol/L Chloride 110 H (98-107) mmol/L BUN 42 H (7-17) mg/dL Creatinine 1.56 H (0.52-1.04) mg/dL Calcium 7.8 L (8.4-10.2) mg/dL Microbiology - Last 24 Hours (Table) 07/22/21 12:31 Blood Culture - Preliminary Blood No Growth after 48 hours 07/23/21 06:46 Blood Culture - Preliminary Blood No Growth after 24 hours Assessment and Plan Assessment: * Altered mental status likely due to hypoxic/toxic metabolic encephalopathy due to pneumonia and bacteremia/sepsis. * Possible ?left upper extremity weakness/ hand weakness. Possible stroke (two CT head are negative for acute or subacute stroke). * Acute kidney insufficiency * Positive Fecal occult blood. * Advanced dementia (is oriented X0) * History of hypothyroidism Plan: * Patient's altered mental status is likely related to toxic metabolic encephalopathy. Hopefully her encephalopathy will improve once bacteremia and other medical conditions, under control. However with her severe dementia, acute infections often can lead to clinical setback, and patient may not regain functional recovery back to baseline. * Suggest resuming aspirin 81 mg daily as early as cleared by IM/general surgery. * 2-D echo revealed normal left ventricular size. Mild concentric LVH. EF is mildly impaired between 45-50%. Septal hypokinesis. Left atrial size is normal. Mild mitral annular calcification. * Telemetry monitoring still showing atrial fibrillation. Discussed with Dr Mckeon in detail. Patient not on anticoagulation because of recent history of significant GI bleed. Patient to be resumed on aspirin with Protonix. If any bleeding recurs, then will completely stop aspirin. * Continue Lipitor 10 mg at bedtime. Lipid panel with cholesterol 84, LDL 35, HDL 27 and triglycerides 105. * B12 842, folate 6.5, TSH 5.02. We will start folate replacement. * Patient on Lovenox for DVT prophylaxis. * Pulmonary team is on board * Nephrology team is consulted * We'll defer the rest of the medical management to the primary team. * As there is no active neurological issue, neurology will sign off. Please reconsult if any concerns. Recent tests: Stool occult blood was positive Ward virus PCR was not detected Ammonia level is 18. CT of the head is reported as no evident marriage. Suspect some interval increase in the degree of ventriculomegaly, consider hydrocephalus, normal pressure hydrocephalus. Age-related changes of atrophy and chronic small vessel ischemia. 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 There is no evidence of intracranial hemodynamic stenosis. Per the ED notes the patient last normal was unclear. Patient is not a TPA candidate since of unclear of her medical history as well as the time of onset. And a TPA risk outweighed the benefit. Repeat CT head: Reported as no acute intracranial hemorrhage or midline shift or mass effect. Chronic changes at. No significant change since prior.
[2021-07-25] MEDS: SODIUM CHLORIDE 0.9% 1,000 ML IV SCH (03:20)
[2021-07-25] MEDS: PANTOPRAZOLE 40 MG TABLET PO SCH ×2 (05:08→17:52)
[2021-07-25] MEDS: LEVOTHYROXINE 25 MCG TAB PO SCH (05:08)
[2021-07-25] MEDS: ASPIRIN 81 MG PO SCH (09:13)
[2021-07-25] MEDS: FOLIC ACID 1 MG TAB PO SCH (09:13)
--- NOTE | 2021-07-25 12:22 | PN ---
PROGRESS NOTE The patient is seen for followup for acute kidney injury and hypernatremia. She is currently comfortable. Renal function has been stable for the last 3 days. On examination today, blood pressure 113/74, heart rate 83 per minute. Patient is afebrile. Examination of the heart S1, S2. Examination of the lungs, decreased breath sounds at the bases. Abdomen is soft, nontender. Examination of lower extremities shows trace edema bilaterally. LAB: Show sodium of 140, potassium 3.4 from yesterday. No labs available today. ASSESSMENT: 1. Acute kidney injury prerenal currently improved with IV hydration. 2. Staph aureus bacteremia. Repeat blood cultures negative. Status post vancomycin now, maintained on cefazolin. 3. Hypernatremia, improved with D5W. Sodium had dropped down to 135 and IV fluids have been changed to normal saline now. The sodium was 140 yesterday. 4. Acute hypoxic respiratory failure secondary to pneumonia, now improved. 5. Bilateral pneumonia, status post antibiotics. 6. Hypokalemia currently being replaced. PLAN: Hemodialysis today. Continue to encourage increased oral intake. MMODL / IJN: [id number] /
[2021-07-25 12:51] LABS: Calcium 7.5 mg/dL (8.4-10.2); Potassium 3.1 mmol/L (3.5-5.1)
[2021-07-25] MEDS ORDERED: FUROSEMIDE 10 MG/ML 4 ML VIAL IV STA (16:46)
--- NOTE | 2021-07-25 16:49 | P.PN ---
Progress Note - Text Progress Note Date: 07/25/21 Chief Complaint: Decreased responsiveness The following history per ER notes: This 81-year-old patient was brought by the EMS from assisted living. She was found to be unresponsive this morning. It is unknown when the patient was last seen normal. EMS found the patient to be unresponsive. She was hypoxic with oxygen level in 70s percent. Placed on 15 L nonrebreather. And patient started to become more alert. Humerus was told that the patient has a left hand we akness. Initial heart rate was 124. He was moving her limbs to painful stimuli in the ER. Blood glucose in the ER was 165. Stroke protocol was activated was not felt to be a TPA candidate. Daughter Doris told the ER physician that for last several days patient has been getting weak. worker in the assisted living also tested positive for COVID. The patient had tested negative. Patient had decreased oral intake in the last 2-3 days. Patient has a history of dementia thyroid disease and hiatal hernia. Patient had elevated BUN and creatinine. Sodium bicarbonate drip was started. Patient was on BiPAP. Also received some fluid bolus. When I came to see the patient.- lethargic but arousable. Doesn't answer questions. Moving all limbs. Getting IV fluids Admitted with acute metabolic encephalopathy, bilateral pneumonia, sepsis with lactic acidosis, acute hypoxic respiratory failure, acute kidney injury felt to be combination of prerenal and ATN. Started IV Zosyn fluids oxygen supplementation. July 19: Patient is bit more awake today. Rather tired. Not answering questions. Pulse oxing well 94% on room air. IV antibiotic. July 20: Overnight patient had one large bloody bowel movement. Awake. Tired. No pain. Surgery consulted July 21: Patient is advanced to full liquid diet. Will have the feeding done with assistance. Laying in bed. Tired. Not really speaking much. July 22: Patient is barely eating much. Diet. Laying in bed. Not in distress. On IV Zosyn. Blood cultures positive for MSSA. July 23: Telemetry strips showing possible A. fib. Discussed with neurology. Oral intake somewhat better. Pulse ox 94%. Because patient had a large bloody bowel movement 3 days ago she noted a good candidate for eliquis. We'll start the patient on aspirin and she is only on Protonix. If she was to bleed then aspirin would have to be discontinued also. July 24: Congested cough. Eating between 25-50%. Tired. Reclining, more awake. WBC scan ordered by ID July 25: Oral intake remains low. Tired. WBC scan unremarkable. Review of systems: Was done for constitutional, cardiovascular, GI, pulmonary. relevant finding as above Active Medications Acetaminophen (Acetaminophen Tab 325 Mg Tab) 650 mg PO Q6HR PRN PRN Reason: Mild Pain or Fever > 100.5 Aspirin (Aspirin 81 Mg) 81 mg PO DAILY [facility] Last Admin: 07/25/21 09:13 Dose: 81 mg Documented by: Atorvastatin Calcium (Atorvastatin 10 Mg Tab) 10 mg PO HS [facility] Last Admin: 07/24/21 20:04 Dose: 10 mg Documented by: Folic Acid (Folic Acid 1 Mg Tab) 1 mg PO DAILY [facility] Last Admin: 07/25/21 09:13 Dose: 1 mg Documented by: Sodium Chloride (Saline 0.9%) 1,000 mls @ 50 mls/hr IV .Q20H [facility] Last Admin: 07/25/21 03:20 Dose: 50 mls/hr Documented by: Cefazolin Sodium 2 gm/ Sodium (Chloride) 50 mls @ 100 mls/hr IVPB Q12HR [facility] Last Admin: 07/25/21 11:10 Dose: 100 mls/hr Documented by: Levothyroxine Sodium (Levothyroxine 25 Mcg Tab) 25 mcg PO DAILY@0630 [facility] Last Admin: 07/25/21 05:08 Dose: 25 mcg Documented by: Naloxone HCl (Naloxone 0.4 Mg/Ml 1 Ml Vial) 0.2 mg IV Q2M PRN PRN Reason: Opioid Reversal Ondansetron HCl (Ondansetron 4 Mg/2 Ml Vial) 4 mg IVP Q8HR PRN PRN Reason: Nausea And Vomiting Pantoprazole Sodium (Pantoprazole 40 Mg Tablet) 40 mg PO AC-BID [facility] Last Admin: 07/25/21 05:08 Dose: 40 mg Documented by: Past medical history: Dementia, hypothyroid, hiatal hernia Social history: Unable to obtain. Resident of [facility] Family history: Patient cannot tell Physical examination: VITAL SIGNS: Afebrile, 83, 16, 130/74, 94% room air GENERAL: Reclining in bed,, tired EYES: Pupils equal. Conjunctiva normal. HEENT: External appearance of nose and ears normal, oral cavity dry mucous membrane. NECK: JVD not raised; masses not palpable. HEART: Heart sounds irregular; edema. LUNGS: Respiratory rate increased; some expiratory crackles ABDOMEN: Soft, nontender, liver spleen not palpable, no masses palpable. PSYCH: Answering occasional questions MUSCULOSKELETAL: Evidence of OA in several joints INVESTIGATIONS, reviewed in the clinical context: WBC scan: Negative EEG: Negative for epileptiform activity. Suggestive of encephalopathy. July 19: Sodium 147 potassium 3.8. 95 creatinine 2.91 Renal ultrasound: Suboptimal study. July 18: Sodium 142 potassium 3 BUN 95 creatinine 3.56 lactic acid 4.9 WBC 15.2 hemoglobin 13.4 platelets 243 INR 1.4 sodium 140 potassium 4.2 BUN 97 creatinine 4.02 Lactic acid 10.4 magnesium 2.4 creatinine kind is 182 troponin I 0.685 albumin 2.7 UA negative for leukoesterase and nitrite Coronavirus [PCR]: Not detected EKG tracing personally reviewed by me-normal sinus rhythm, poor R-wave progression, intraventricular block, ST-T wave changes. CT brain without contrast: No evidence of any stroke. Some increase in degree of ventriculomegaly. AIDS related changes. Consider hydrocephalus/NPH CT angiogram head and neck: Fusiform stenosis of cervical internal carotid arteries bilaterally. Chest x-ray film personally reviewed by me-bilateral infiltrates Assessment and plan: -Acute metabolic encephalopathy, likely combination of sepsis, severe renal failure from pneumonia: Some improvement Follow clinically -Bilateral pneumonia, suspect gram-negative organism. Suspect additional aspiration pneumonia: Blood cultures positive for MSSA IV Ancef -Sepsis with lactic acidosis: No fever. White count elevated. Blood culture positive from July 17: MSSA IV fluids. IV Ancef. WBC nuclear scan : Negative -Acute blood loss anemia from GI bleed Follow H&H. Protonix 40 mg twice a day -Paroxysmal atrial fibrillation No anticoagulation because of GI bleed. Baby aspirin -Acute hypoxic respiratory failure secondary to pneumonia: Better Patient was put on BiPAP initially. Oxygenating satisfactory on room air -Acute kidney injury possibly combination of prerenal and ATN from sepsis dehydration. Poor Introl oral intake for a few days.: Slow to respond IV fluids. D5 0.45. Admission creatinine 3.56. Improved. Decrease IV fluids -Acute GI bleed with one episode of bloody bowel movement Follow H&H. surgery no current intervention. -Primary osteoarthritis Pain medications as needed -Cognitive impairment from underlying Alzheimer's dementia -Hypothyroid Synthroid 25 g daily -DO NOT RESUSCITATE Continue current medications. IV Ancef. 1 dose of IV Lasix 40 mg. Bilateral Amilcar wrap. Prognosis guarded
[2021-07-25] MEDS: LACTATED RINGERS 1,000 ML IV SCH (17:53)
[2021-07-25] MEDS: ATORVASTATIN 10 MG TAB PO SCH (22:28)
--- NOTE | 2021-07-25 22:41 | PN ---
PROGRESS NOTE DATE OF SERVICE: 07/25/2021 REASON FOR FOLLOWUP: MSSA bacteremia. INTERVAL HISTORY: The patient is afebrile. The patient is breathing more comfortably. The patient is hemodynamically stable, currently on room air. He denies any chest pain or cough. No abdominal pain or diarrhea. Not a very good historian; most of the information has been obtained from asking questions. PHYSICAL EXAMINATION: Blood pressure 119/74, pulse of 110, temperature 97.7. She is 92% on room air. General description is an elderly female lying in bed in no distress. Respiratory system: Unlabored breathing. Clear to auscultation anteriorly. Heart S1, S2. Regular rate and rhythm. Abdomen soft, no tenderness. LABS: Creatinine is 1.29. Blood culture repeat has been negative so far. DIAGNOSTIC IMPRESSION AND PLAN: Patient with MSSA bacteremia without any clear localizing focus of infection. Echocardiogram was negative. WBC scan negative. It is very hard to get any history from this patient, but no findings on clinical examination. She is on cefazolin. Plan is for a total of 4 weeks from her negative blood cultures and close outpatient followup. MMODL / IJN: [id number] /
[2021-07-26] MEDS: LEVOTHYROXINE 25 MCG TAB PO SCH (05:29)
[2021-07-26] MEDS: FOLIC ACID 1 MG TAB PO SCH (08:36)
[2021-07-26] MEDS: ASPIRIN 81 MG PO SCH (08:36)
[2021-07-26] MEDS: PANTOPRAZOLE 40 MG TABLET PO SCH ×2 (08:36→17:34)
--- NOTE | 2021-07-26 13:31 | P.PN ---
Progress Note - Text Progress Note Date: 07/26/21 Chief Complaint: Decreased responsiveness The following history per ER notes: This 81-year-old patient was brought by the EMS from assisted living. She was found to be unresponsive this morning. It is unknown when the patient was last seen normal. EMS found the patient to be unresponsive. She was hypoxic with oxygen level in 70s percent. Placed on 15 L nonrebreather. And patient started to become more alert. Humerus was told that the patient has a left hand we akness. Initial heart rate was 124. He was moving her limbs to painful stimuli in the ER. Blood glucose in the ER was 165. Stroke protocol was activated was not felt to be a TPA candidate. Daughter Doris told the ER physician that for last several days patient has been getting weak. worker in the assisted living also tested positive for COVID. The patient had tested negative. Patient had decreased oral intake in the last 2-3 days. Patient has a history of dementia thyroid disease and hiatal hernia. Patient had elevated BUN and creatinine. Sodium bicarbonate drip was started. Patient was on BiPAP. Also received some fluid bolus. When I came to see the patient.- lethargic but arousable. Doesn't answer questions. Moving all limbs. Getting IV fluids Admitted with acute metabolic encephalopathy, bilateral pneumonia, sepsis with lactic acidosis, acute hypoxic respiratory failure, acute kidney injury felt to be combination of prerenal and ATN. Started IV Zosyn fluids oxygen supplementation. July 19: Patient is bit more awake today. Rather tired. Not answering questions. Pulse oxing well 94% on room air. IV antibiotic. July 20: Overnight patient had one large bloody bowel movement. Awake. Tired. No pain. Surgery consulted July 21: Patient is advanced to full liquid diet. Will have the feeding done with assistance. Laying in bed. Tired. Not really speaking much. July 22: Patient is barely eating much. Diet. Laying in bed. Not in distress. On IV Zosyn. Blood cultures positive for MSSA. July 23: Telemetry strips showing possible A. fib. Discussed with neurology. Oral intake somewhat better. Pulse ox 94%. Because patient had a large bloody bowel movement 3 days ago she noted a good candidate for eliquis. We'll start the patient on aspirin and she is only on Protonix. If she was to bleed then aspirin would have to be discontinued also. July 24: Congested cough. Eating between 25-50%. Tired. Reclining, more awake. WBC scan ordered by ID July 25: Oral intake remains low. Tired. WBC scan unremarkable. July 26: Tired. Decreased oral intake. Not in distress Review of systems: Was done for constitutional, cardiovascular, GI, pulmonary. relevant finding as above Active Medications Acetaminophen (Acetaminophen Tab 325 Mg Tab) 650 mg PO Q6HR PRN PRN Reason: Mild Pain or Fever > 100.5 Aspirin (Aspirin 81 Mg) 81 mg PO DAILY [facility] Last Admin: 07/26/21 08:36 Dose: 81 mg Documented by: Atorvastatin Calcium (Atorvastatin 10 Mg Tab) 10 mg PO HS [facility] Last Admin: 07/25/21 22:28 Dose: 10 mg Documented by: Folic Acid (Folic Acid 1 Mg Tab) 1 mg PO DAILY [facility] Last Admin: 07/26/21 08:36 Dose: 1 mg Documented by: Cefazolin Sodium 2 gm/ Sodium (Chloride) 50 mls @ 100 mls/hr IVPB Q12HR [facility] Last Admin: 07/26/21 08:36 Dose: 100 mls/hr Documented by: Lactated Ringer's (Lactated Ringers) 1,000 mls @ 50 mls/hr IV .Q20H [facility] Last Admin: 07/25/21 17:53 Dose: 50 mls/hr Documented by: Levothyroxine Sodium (Levothyroxine 25 Mcg Tab) 25 mcg PO DAILY@0630 [facility] Last Admin: 07/26/21 05:29 Dose: 25 mcg Documented by: Naloxone HCl (Naloxone 0.4 Mg/Ml 1 Ml Vial) 0.2 mg IV Q2M PRN PRN Reason: Opioid Reversal Ondansetron HCl (Ondansetron 4 Mg/2 Ml Vial) 4 mg IVP Q8HR PRN PRN Reason: Nausea And Vomiting Pantoprazole Sodium (Pantoprazole 40 Mg Tablet) 40 mg PO AC-BID [facility] Last Admin: 07/26/21 08:36 Dose: 40 mg Documented by: Past medical history: Dementia, hypothyroid, hiatal hernia Social history: Unable to obtain. Resident of [facility] Family history: Patient cannot tell Physical examination: VITAL SIGNS: 97.6, 116, 20, 10 4 x 70, 97% room air GENERAL: Reclining in bed,, tired EYES: Pupils equal. Conjunctiva normal. HEENT: External appearance of nose and ears normal, oral cavity dry mucous membrane. NECK: JVD not raised; masses not palpable. HEART: Heart sounds irregular; edema. LUNGS: Respiratory rate increased; decreased breath sounds ABDOMEN: Soft, nontender, liver spleen not palpable, no masses palpable. PSYCH: Answering occasional questions MUSCULOSKELETAL: Evidence of OA in several joints INVESTIGATIONS, reviewed in the clinical context: WBC scan: Negative EEG: Negative for epileptiform activity. Suggestive of encephalopathy. July 19: Sodium 147 potassium 3.8. 95 creatinine 2.91 Renal ultrasound: Suboptimal study. July 18: Sodium 142 potassium 3 BUN 95 creatinine 3.56 lactic acid 4.9 WBC 15.2 hemoglobin 13.4 platelets 243 INR 1.4 sodium 140 potassium 4.2 BUN 97 creatinine 4.02 Lactic acid 10.4 magnesium 2.4 creatinine kind is 182 troponin I 0.685 albumin 2.7 UA negative for leukoesterase and nitrite Coronavirus [PCR]: Not detected EKG tracing personally reviewed by me-normal sinus rhythm, poor R-wave progression, intraventricular block, ST-T wave changes. CT brain without contrast: No evidence of any stroke. Some increase in degree of ventriculomegaly. AIDS related changes. Consider hydrocephalus/NPH CT angiogram head and neck: Fusiform stenosis of cervical internal carotid arteries bilaterally. Chest x-ray film personally reviewed by me-bilateral infiltrates Assessment and plan: -Acute metabolic encephalopathy, likely combination of sepsis, severe renal failure from pneumonia: Some improvement Follow clinically -Bilateral pneumonia, suspect gram-negative organism. Suspect additional aspiration pneumonia: Blood cultures positive for MSSA IV Ancef -Sepsis with lactic acidosis: No fever. White count elevated. Blood culture positive from July 17: MSSA IV fluids. IV Ancef. WBC nuclear scan : Negative -Acute blood loss anemia from GI bleed Follow H&H. Protonix 40 mg twice a day -Paroxysmal atrial fibrillation No anticoagulation because of GI bleed. Baby aspirin -Acute hypoxic respiratory failure secondary to pneumonia: Better Patient was put on BiPAP initially. Oxygenating satisfactory on room air -Acute kidney injury possibly combination of prerenal and ATN from sepsis dehydration. Poor Introl oral intake for a few days.: Slow to respond IV fluids. D5 0.45. Admission creatinine 3.56. Improved. Decrease IV fluids -Acute GI bleed with one episode of bloody bowel movement Follow H&H. surgery no current intervention. -Primary osteoarthritis Pain medications as needed -Cognitive impairment from underlying Alzheimer's dementia -Hypothyroid Synthroid 25 g daily -DO NOT RESUSCITATE Continue current medications. IV Ancef. Bilateral Amilcar wrap. Prognosis guarded
[2021-07-26] MEDS: LACTATED RINGERS 1,000 ML IV SCH (13:33)
--- NOTE | 2021-07-26 16:47 | PN ---
PROGRESS NOTE Patient is seen for followup for acute kidney injury and hypernatremia. Her sodium has been within range. Patient's renal function has improved. Currently maintained on 50 mL/hour of IV fluids. On examination today, blood pressure is 104/70, heart rate 116 per minute. Patient is afebrile. EXAMINATION OF THE HEART: S1 and S2. EXAMINATION OF LUNGS: Bilateral breath sounds are heard. Decreased breath sounds at the bases. Abdomen is soft, non-tender. Examination of lower extremities shows edema 1+ bilaterally. Labs show sodium 143, potassium 3.1, BUN 39, creatinine 1.29. ASSESSMENT: 1. Acute kidney injury, prerenal, currently improved with IV hydration. 2. Staphylococcus aureus bacteremia. Repeat blood culture is negative. Currently maintained on cefazolin. 3. Hypernatremia, improved with D5W then switched over to normal saline. Patient is maintaining fair oral intake. I will discontinue the IV fluids. She did receive a dose of IV Lasix yesterday. 4. Acute hypoxic respiratory failure secondary to pneumonia, now improved. 5. Bilateral pneumonia, status post antibiotics. 6. Hypokalemia, status post replacement. PLAN: Discontinue IV fluids. Encourage increased oral intake. Repeat labs in a.m. MMODL / IJN: [id number] /
[2021-07-26] MEDS: ATORVASTATIN 10 MG TAB PO SCH (19:56)
--- NOTE | 2021-07-26 22:02 | PN ---
PROGRESS NOTE DATE OF SERVICE: 07/26/2021 REASON FOR FOLLOWUP: MSSA bacteremia. INTERVAL HISTORY: The patient is afebrile. The patient is more awake and alert. The patient is breathing comfortably. The patient denies having any chest pain or shortness of breath or cough. When asked specifically, the patient denies having any lower back pain. No diarrhea reported. PHYSICAL EXAMINATION: Blood pressure 152/82 with a pulse of 118, temperature 97.4. She is 98% on room air. General description is an elderly female lying in bed in no distress. Respiratory system: Unlabored breathing. Clear to auscultation anteriorly. Heart S1, S2. Regular rate and rhythm. Abdomen soft, no tenderness. LABS: Blood culture repeat on 07/23, 07/24 and 07/25 have been negative so far. DIAGNOSTIC IMPRESSION AND PLAN: Patient with MSSA bacteremia. Patient's bacteremia cleared quickly and does not have any obvious focus of infection. Clinically not behaving as pneumonia. Echocardiogram did not show any vegetation. CT scan was negative as well. Will wait for the repeat blood work. If overall improvement in kidney function, may order a CT of the lumbosacral spine to complete the workup. However, the patient denies any back pain, and more likely not the source of infection. Continue cefazolin; plan for at least 4 weeks of antibiotic and close outpatient followup. MMODL / IJN: [id number] /
[2021-07-27] MEDS: LEVOTHYROXINE 25 MCG TAB PO SCH (05:24)
[2021-07-27 06:36] LABS: African American GFR (CKD) 44 (>60 ml/min/1.73 sqM); Anion Gap 6 mmol/L; Blood Urea Nitrogen 37 mg/dL (7-17); Carbon Dioxide 24 mmol/L (22-30); Chloride 118 mmol/L (98-107); Glucose 98 mg/dL (74-99); Non-African American GFR(CKD) 38 (>60 ml/min/1.73 sqM); Potassium 2.9 mmol/L (3.5-5.1); Sodium 148 mmol/L (137-145)
[2021-07-27 06:41] LABS: Basophils # (A) 0.1 k/uL (0-0.2); Basophils % (A) 1 %; Eosinophils # (A) 0.1 k/uL (0-0.7); Eosinophils % (A) 1 %; HCT 29.7 % (34.0-46.0); HGB 9.6 gm/dL (11.4-16.0); Lymphocytes # (A) 0.6 k/uL (1.0-4.8); Lymphocytes % (A) 6 %; MCH 31.2 pg (25.0-35.0); MCHC 32.2 g/dL (31.0-37.0); MCV 96.7 fL (80.0-100.0); Mean Platelet Volume 9.3; Monocytes # (A) 0.5 k/uL (0-1.0); Monocytes % (A) 5 %; Neutrophils # (A) 9.5 k/uL (1.3-7.7); Neutrophils % (A) 87 %; Platelet Count 167 k/uL (150-450); RBC 3.07 m/uL (3.80-5.40); RDW 15.9 % (11.5-15.5)
--- NOTE | 2021-07-27 08:53 | P.PN ---
Subjective Patient is seen in follow for acute kidney injury. Renal function stable. Has been voiding. Patient has history of dementia. Sodium level 148 today. Potassium level 2.9. Vital signs are stable. General: Resting in bed. HEENT: Head exam is unremarkable. LUNGS: Breath sounds decreased. HEART: Rate and Rhythm are regular. ABDOMEN: Soft, no distention. EXTREMITITES: No edema. Objective - Vital Signs Vital signs: Vital Signs Temp 97.8 F 07/27/21 05:00 Pulse 84 07/27/21 05:00 Resp 16 07/27/21 05:00 BP 116/75 07/27/21 05:00 Pulse Ox 97 07/27/21 05:00 Intake & Output 07/26/21 07/27/21 07/27/21 18:59 06:59 18:59 Intake Total 60 Balance 60 Intake: Oral 60 Other: Voiding Method Diaper Diaper # Voids 2 4 # Bowel Movements 1 - Labs CBC & Chem 7: 07/27/21 05:59 07/27/21 05:59 Labs: Abnormal Lab Results - Last 24 Hours (Table) 07/27/21 07/27/21 Range/Units 05:59 05:59 WBC 11.0 H (3.8-10.6) k/uL RBC 3.07 L (3.80-5.40) m/uL Hgb 9.6 L (11.4-16.0) gm/dL Hct 29.7 L (34.0-46.0) % RDW 15.9 H (11.5-15.5) % Neutrophils # 9.5 H (1.3-7.7) k/uL Lymphocytes # 0.6 L (1.0-4.8) k/uL Sodium 148 H (137-145) mmol/L Potassium 2.9 L (3.5-5.1) mmol/L Chloride 118 H (98-107) mmol/L BUN 37 H (7-17) mg/dL Creatinine 1.29 H (0.52-1.04) mg/dL Calcium 8.0 L (8.4-10.2) mg/dL Microbiology - Last 24 Hours (Table) 07/22/21 12:31 Blood Culture - Preliminary Blood No Growth after 96 hours 07/24/21 09:03 Blood Culture - Preliminary Blood No Growth after 48 hours 07/23/21 06:46 Blood Culture - Preliminary Blood No Growth after 72 hours Assessment and Plan Plan: Assessment: 1. Acute kidney injury secondary to ATN secondary to hypotension. Patient also received IV contrast on July 17. Creatinine was 4.02 on admission and down to 1.29 today. Baseline creatinine near 1. Left kidney atrophic. No hydronephrosis noted on kidney ultrasound. 2. Acute hypoxic respiratory failure. 3.. Hypokalemia from poor intake. 4. Metabolic acidosis secondary to acute kidney injury s/p bicarb drip. Improved. 5. Staph aureus bacteremia on antibiotics. Infectious disease following. 6. Hypernatremia from lack of free water intake. Plan: Start D5W at 75 mL an hour. Potassium being replaced. Check magnesium level. Continue to monitor renal function and urine output. May need PICC line. Okay to place in the dominant arm.
[2021-07-27] MEDS: FOLIC ACID 1 MG TAB PO SCH (09:38)
[2021-07-27] MEDS: POTASSIUM CHLORIDE ER 20 MEQ TAB.ER PO SCH ×2 (09:38→12:23)
[2021-07-27] MEDS: ASPIRIN 81 MG PO SCH (09:38)
[2021-07-27] MEDS: PANTOPRAZOLE 40 MG TABLET PO SCH ×2 (09:38→18:20)
--- NOTE | 2021-07-27 13:02 | P.PN ---
Progress Note - Text Progress Note Date: 07/27/21 Chief Complaint: Decreased responsiveness The following history per ER notes: This 81-year-old patient was brought by the EMS from assisted living. She was found to be unresponsive this morning. It is unknown when the patient was last seen normal. EMS found the patient to be unresponsive. She was hypoxic with oxygen level in 70s percent. Placed on 15 L nonrebreather. And patient started to become more alert. Humerus was told that the patient has a left hand we akness. Initial heart rate was 124. He was moving her limbs to painful stimuli in the ER. Blood glucose in the ER was 165. Stroke protocol was activated was not felt to be a TPA candidate. Daughter Doris told the ER physician that for last several days patient has been getting weak. worker in the assisted living also tested positive for COVID. The patient had tested negative. Patient had decreased oral intake in the last 2-3 days. Patient has a history of dementia thyroid disease and hiatal hernia. Patient had elevated BUN and creatinine. Sodium bicarbonate drip was started. Patient was on BiPAP. Also received some fluid bolus. When I came to see the patient.- lethargic but arousable. Doesn't answer questions. Moving all limbs. Getting IV fluids Admitted with acute metabolic encephalopathy, bilateral pneumonia, sepsis with lactic acidosis, acute hypoxic respiratory failure, acute kidney injury felt to be combination of prerenal and ATN. Started IV Zosyn fluids oxygen supplementation. July 19: Patient is bit more awake today. Rather tired. Not answering questions. Pulse oxing well 94% on room air. IV antibiotic. July 20: Overnight patient had one large bloody bowel movement. Awake. Tired. No pain. Surgery consulted July 21: Patient is advanced to full liquid diet. Will have the feeding done with assistance. Laying in bed. Tired. Not really speaking much. July 22: Patient is barely eating much. Diet. Laying in bed. Not in distress. On IV Zosyn. Blood cultures positive for MSSA. July 23: Telemetry strips showing possible A. fib. Discussed with neurology. Oral intake somewhat better. Pulse ox 94%. Because patient had a large bloody bowel movement 3 days ago she noted a good candidate for eliquis. We'll start the patient on aspirin and she is only on Protonix. If she was to bleed then aspirin would have to be discontinued also. July 24: Congested cough. Eating between 25-50%. Tired. Reclining, more awake. WBC scan ordered by ID July 25: Oral intake remains low. Tired. WBC scan unremarkable. July 26: Tired. Decreased oral intake. Not in distress July 27: Afebrile, pulse ox good. Oral intake fair. IV Ancef. IDs planning for outpatient IV antibiotics. Review of systems: Was done for constitutional, cardiovascular, GI, pulmonary. relevant finding as above Active Medications Acetaminophen (Acetaminophen Tab 325 Mg Tab) 650 mg PO Q6HR PRN PRN Reason: Mild Pain or Fever > 100.5 Aspirin (Aspirin 81 Mg) 81 mg PO DAILY [facility] Last Admin: 07/27/21 09:38 Dose: 81 mg Documented by: Atorvastatin Calcium (Atorvastatin 10 Mg Tab) 10 mg PO HS [facility] Last Admin: 07/26/21 19:56 Dose: 10 mg Documented by: Folic Acid (Folic Acid 1 Mg Tab) 1 mg PO DAILY [facility] Last Admin: 07/27/21 09:38 Dose: 1 mg Documented by: Cefazolin Sodium 2 gm/ Sodium (Chloride) 50 mls @ 100 mls/hr IVPB Q12HR [facility] Last Admin: 07/26/21 22:47 Dose: Not Given Documented by: Dextrose/Water (Dextrose 5%-Water Iv Soln) 1,000 mls @ 75 mls/hr IV .[id number] [facility] Levothyroxine Sodium (Levothyroxine 25 Mcg Tab) 25 mcg PO DAILY@0630 [facility] Last Admin: 07/27/21 05:24 Dose: 25 mcg Documented by: Naloxone HCl (Naloxone 0.4 Mg/Ml 1 Ml Vial) 0.2 mg IV Q2M PRN PRN Reason: Opioid Reversal Ondansetron HCl (Ondansetron 4 Mg/2 Ml Vial) 4 mg IVP Q8HR PRN PRN Reason: Nausea And Vomiting Pantoprazole Sodium (Pantoprazole 40 Mg Tablet) 40 mg PO AC-BID [facility] Last Admin: 07/27/21 09:38 Dose: 40 mg Documented by: Past medical history: Dementia, hypothyroid, hiatal hernia Social history: Unable to obtain. Resident of [facility] Family history: Patient cannot tell Physical examination: VITAL SIGNS: 97.8, 84, 16, 116/35, 97% room air GENERAL: Reclining in bed,, awake, tired EYES: Pupils equal. Conjunctiva normal. HEENT: External appearance of nose and ears normal, oral cavity dry mucous membrane. NECK: JVD not raised; masses not palpable. HEART: Heart sounds irregular; edema. LUNGS: Respiratory rate normal; decreased breath sounds ABDOMEN: Soft, nontender, liver spleen not palpable, no masses palpable. PSYCH: Answering simple questions MUSCULOSKELETAL: Evidence of OA in several joints INVESTIGATIONS, reviewed in the clinical context: July 27: White count 11 hemoglobin 9.6 platelets 167 sodium 148 potassium 2.9 BUN 37 creatinine 1.29 WBC scan: Negative EEG: Negative for epileptiform activity. Suggestive of encephalopathy. July 19: Sodium 147 potassium 3.8. 95 creatinine 2.91 Renal ultrasound: Suboptimal study. July 18: Sodium 142 potassium 3 BUN 95 creatinine 3.56 lactic acid 4.9 WBC 15.2 hemoglobin 13.4 platelets 243 INR 1.4 sodium 140 potassium 4.2 BUN 97 creatinine 4.02 Lactic acid 10.4 magnesium 2.4 creatinine kind is 182 troponin I 0.685 albumin 2.7 UA negative for leukoesterase and nitrite Coronavirus [PCR]: Not detected EKG tracing personally reviewed by me-normal sinus rhythm, poor R-wave progression, intraventricular block, ST-T wave changes. CT brain without contrast: No evidence of any stroke. Some increase in degree of ventriculomegaly. AIDS related changes. Consider hydrocephalus/NPH CT angiogram head and neck: Fusiform stenosis of cervical internal carotid arteries bilaterally. Chest x-ray film personally reviewed by me-bilateral infiltrates Assessment and plan: -Acute metabolic encephalopathy, likely combination of sepsis, severe renal failure from pneumonia: Better Follow clinically -Bilateral pneumonia, suspect gram-negative organism. Suspect additional aspiration pneumonia: Blood cultures positive for MSSA. Repeat blood cultures negative. IV Ancef -Sepsis with lactic acidosis: No fever. White count elevated. Blood culture positive from July 17: MSSA: Improving IV fluids. IV Ancef. WBC nuclear scan : Negative -Acute blood loss anemia from GI bleed Follow H&H. Protonix 40 mg twice a day -Paroxysmal atrial fibrillation No anticoagulation because of GI bleed. Baby aspirin -Acute hypoxic respiratory failure secondary to pneumonia: Better Patient was put on BiPAP initially. Oxygenating satisfactory on room air -Acute kidney injury possibly combination of prerenal and ATN from sepsis dehydration. Poor Introl oral intake for a few days.: Slow to respond IV fluids. D5 0.45. Admission creatinine 3.56. Improved. Decrease IV fluids -Acute GI bleed with one episode of bloody bowel movement Follow H&H. surgery no current intervention. -Primary osteoarthritis Pain medications as needed -Cognitive impairment from underlying Alzheimer's dementia -Hypothyroid Synthroid 25 g daily -DO NOT RESUSCITATE Patient lost her IV yesterday. Awaiting PICC line. Anesthesia were busy yesterday to try to access IV. IDs planning for home antibiotics. Repeat labs.
[2021-07-27] MEDS: DEXTROSE 5% IN WATER 1,000 ML IV SCH ×2 (15:20→19:01)
[2021-07-27] MEDS: ATORVASTATIN 10 MG TAB PO SCH (19:47)
--- NOTE | 2021-07-27 23:03 | PN ---
PROGRESS NOTE DATE OF SERVICE: 07/27/2021 REASON FOR FOLLOWUP: MSSA bacteremia. INTERVAL HISTORY: Patient is afebrile. The patient is currently breathing comfortably. Patient denies any chest pain or cough. No abdominal pain. No diarrhea. EXAMINATION: Her blood pressure is 121/79 with a pulse of 106, temperature 98.5. She is 94% on room air. General description is an elderly female lying in bed in no distress. Respiratory system: Unlabored breathing, clear to auscultation anteriorly. Heart S1, S2. Regular rate and rhythm. Abdomen: Soft, no tenderness. LABS: Hemoglobin 9.6, white count 11, creatinine 1.29. Blood culture repeat has been negative. DIAGNOSTIC IMPRESSION AND PLAN: Patient with MSSA bacteremia. Patient has cleared her bacteremia very quickly. Echocardiogram was negative. WBC scan was negative. Patient did have borderline kidney function, high risk of nephrotoxicity from any contrast induced testing. white count. We will get a PICC line. Plan is for a total of 4 weeks of cefazolin from her negative blood culture and close outpatient followup. Continue supportive care. MMODL / IJN: [id number] /
[2021-07-28] MEDS: LEVOTHYROXINE 25 MCG TAB PO SCH (05:39)
[2021-07-28 06:02] LABS: African American GFR (CKD) 40 (>60 ml/min/1.73 sqM); Anion Gap 2 mmol/L; Blood Urea Nitrogen 36 mg/dL (7-17); Calcium 8.3 mg/dL (8.4-10.2); Carbon Dioxide 25 mmol/L (22-30); Chloride 124 mmol/L (98-107); Glucose 89 mg/dL (74-99); Magnesium 1.8 mg/dL (1.6-2.3); Non-African American GFR(CKD) 35 (>60 ml/min/1.73 sqM); Sodium 151 mmol/L (137-145)
[2021-07-28 06:30] LABS: Anisocytosis Slight; HCT 27.4 % (34.0-46.0); MCH 31.9 pg (25.0-35.0); MCHC 32.9 g/dL (31.0-37.0); MCV 96.9 fL (80.0-100.0); Platelet Count 197 k/uL (150-450); RBC 2.82 m/uL (3.80-5.40); RDW 16.2 % (11.5-15.5); WBC 10.3 k/uL (3.8-10.6)
[2021-07-28] MEDS: ASPIRIN 81 MG PO SCH (09:41)
[2021-07-28] MEDS: PANTOPRAZOLE 40 MG TABLET PO SCH ×2 (09:41→18:13)
[2021-07-28] MEDS: FOLIC ACID 1 MG TAB PO SCH (09:41)
[2021-07-28] MEDS: DEXTROSE 5% IN WATER 1,000 ML IV SCH ×2 (09:42→15:20)
[2021-07-28 10:16] LABS: Lymphocytes # (M) 0.52 k/uL (1.0-4.8); Metamyelocytes % 1 %; Monocytes # (M) 0.31 k/uL (0-1.0); Myelocytes # (M) 0.21 k/uL (0); Myelocytes % 2 %; Neutrophils # (M) 9.27 k/uL (1.3-7.7); Neutrophils % (M) 90 %; Nucleated Red Blood Cells 0 /100 WBC (0-0); Total Cells Counted 200
[2021-07-28 10:17] LABS: Mixed Population RBC Present; Poikilocytosis (M) Present
--- NOTE | 2021-07-28 10:34 | P.PN ---
Subjective Patient is seen in follow for acute kidney injury. Renal function worse. Sodium level up to 151. She is on D5W. Has been voiding. Patient has history of dementia. Vital signs are stable. General: Resting in bed. HEENT: Head exam is unremarkable. LUNGS: Breath sounds decreased. HEART: Rate and Rhythm are regular. ABDOMEN: Soft, no distention. EXTREMITITES: No edema. Objective - Vital Signs Vital signs: Vital Signs Temp 97.6 F 07/28/21 04:59 Pulse 107 H 07/28/21 04:59 Resp 18 07/28/21 04:59 BP 129/76 07/28/21 04:59 Pulse Ox 93 L 07/28/21 04:59 Intake & Output 07/27/21 07/28/21 07/28/21 18:59 06:59 18:59 Intake Total 150 Balance 150 Intake: Oral 150 Other: Voiding Method Diaper # Voids 4 # Bowel Movements 2 - Labs CBC & Chem 7: 07/28/21 05:18 07/28/21 05:18 Labs: Abnormal Lab Results - Last 24 Hours (Table) 07/28/21 07/28/21 Range/Units 05:18 05:18 RBC 2.82 L (3.80-5.40) m/uL Hgb 9.0 L (11.4-16.0) gm/dL Hct 27.4 L (34.0-46.0) % RDW 16.2 H (11.5-15.5) % Neutrophils # (Manual) 9.27 H (1.3-7.7) k/uL Lymphocytes # (Manual) 0.52 L (1.0-4.8) k/uL Metamyelocytes # (Man) 0.10 H (0) k/uL Myelocytes # (Manual) 0.21 H (0) k/uL Sodium 151 H (137-145) mmol/L Chloride 124 H (98-107) mmol/L BUN 36 H (7-17) mg/dL Creatinine 1.40 H (0.52-1.04) mg/dL Calcium 8.3 L (8.4-10.2) mg/dL Microbiology - Last 24 Hours (Table) 07/23/21 06:46 Blood Culture - Preliminary Blood No Growth after 120 hours 07/22/21 12:31 Blood Culture - Preliminary Blood No Growth after 120 hours 07/24/21 09:03 Blood Culture - Preliminary Blood No Growth after 72 hours Assessment and Plan Plan: Assessment: 1. Acute kidney injury secondary to ATN secondary to hypotension. Patient also received IV contrast on July 17. Creatinine was 4.02 on admission and im proved to 1.29 as of July 27 - 1.4 today. Baseline creatinine near 1. Left kidney atrophic. No hydronephrosis noted on kidney ultrasound. 2. Acute hypoxic respiratory failure. 3.. Hypokalemia from poor intake. Replaced. Better. 4. Metabolic acidosis secondary to acute kidney injury s/p bicarb drip. Improved. 5. Staph aureus bacteremia on antibiotics. Infectious disease following. 6. Hypernatremia from lack of free water intake. Plan: Increase D5W to 100 mL an hour. Repeat sodium level this evening. Continue to monitor renal function and urine output.
--- NOTE | 2021-07-28 15:23 | IR ---
PICC LINE PLACEMENT: HISTORY: Infection requiring long-term antibiotic therapy PROCEDURE: Ultrasound and fluoroscopic guidance of PICC line placement. COMPLICATIONS: None ANESTHESIA: 1. 1% Lidocaine locally. FINDINGS/TECHNIQUE: The procedure was explained to the patient. The risks, complications, benefits and alternatives were discussed and any questions were answered. Informed consent was obtained. The patient was placed supine on the fluoroscopic table and prepped and draped in the usual sterile fash ion. Utilizing a 21 gauge needle and sonographic and fluoroscopic guidance, access in the the right basilic vein was achieved and there is placement of a 0.018 guidewire. The vein is patent. A 4-F s nam was placed over the guidewire. The guidewire and dilator were removed and a 4-F. PICC line was placed through the sheath with the tip at the level of the SVC. The sheath was removed, the cathete r was flushed and sutured into position. The patient was stable throughout the procedure and remaine d stable upon discharge from the Department of Radiology. The vein puncture was patent under ultrasound. A garibay scale image was obtained to document patency of the vein punctured. All elements of the maximal barrier technique were utilized. FLUOROSCOPY TIME: 0.3 minutes and one image submitted IMPRESSION: Successful PICC line placement under ultrasound and fluoroscopic guidance.
--- NOTE | 2021-07-28 15:52 | P.PN ---
Progress Note - Text Progress Note Date: 07/28/21 Chief Complaint: Decreased responsiveness The following history per ER notes: This 81-year-old patient was brought by the EMS from assisted living. She was found to be unresponsive this morning. It is unknown when the patient was last seen normal. EMS found the patient to be unresponsive. She was hypoxic with oxygen level in 70s percent. Placed on 15 L nonrebreather. And patient started to become more alert. Humerus was told that the patient has a left hand we akness. Initial heart rate was 124. He was moving her limbs to painful stimuli in the ER. Blood glucose in the ER was 165. Stroke protocol was activated was not felt to be a TPA candidate. Daughter Doris told the ER physician that for last several days patient has been getting weak. worker in the assisted living also tested positive for COVID. The patient had tested negative. Patient had decreased oral intake in the last 2-3 days. Patient has a history of dementia thyroid disease and hiatal hernia. Patient had elevated BUN and creatinine. Sodium bicarbonate drip was started. Patient was on BiPAP. Also received some fluid bolus. When I came to see the patient.- lethargic but arousable. Doesn't answer questions. Moving all limbs. Getting IV fluids Admitted with acute metabolic encephalopathy, bilateral pneumonia, sepsis with lactic acidosis, acute hypoxic respiratory failure, acute kidney injury felt to be combination of prerenal and ATN. Started IV Zosyn fluids oxygen supplementation. July 19: Patient is bit more awake today. Rather tired. Not answering questions. Pulse oxing well 94% on room air. IV antibiotic. July 20: Overnight patient had one large bloody bowel movement. Awake. Tired. No pain. Surgery consulted July 21: Patient is advanced to full liquid diet. Will have the feeding done with assistance. Laying in bed. Tired. Not really speaking much. July 22: Patient is barely eating much. Diet. Laying in bed. Not in distress. On IV Zosyn. Blood cultures positive for MSSA. July 23: Telemetry strips showing possible A. fib. Discussed with neurology. Oral intake somewhat better. Pulse ox 94%. Because patient had a large bloody bowel movement 3 days ago she noted a good candidate for eliquis. We'll start the patient on aspirin and she is only on Protonix. If she was to bleed then aspirin would have to be discontinued also. July 24: Congested cough. Eating between 25-50%. Tired. Reclining, more awake. WBC scan ordered by ID July 25: Oral intake remains low. Tired. WBC scan unremarkable. July 26: Tired. Decreased oral intake. Not in distress July 27: Afebrile, pulse ox good. Oral intake fair. IV Ancef. IDs planning for outpatient IV antibiotics. July 28: Patient had no IV access since yesterday. Pending PICC line placement. Sodium has gone up. Oral intake variable. Review of systems: Patient talks very little Active Medications Acetaminophen (Acetaminophen Tab 325 Mg Tab) 650 mg PO Q6HR PRN PRN Reason: Mild Pain or Fever > 100.5 Aspirin (Aspirin 81 Mg) 81 mg PO DAILY [facility] Last Admin: 07/28/21 09:41 Dose: 81 mg Documented by: Atorvastatin Calcium (Atorvastatin 10 Mg Tab) 10 mg PO HS [facility] Last Admin: 07/27/21 19:47 Dose: 10 mg Documented by: Folic Acid (Folic Acid 1 Mg Tab) 1 mg PO DAILY [facility] Last Admin: 07/28/21 09:41 Dose: 1 mg Documented by: Cefazolin Sodium 2 gm/ Sodium (Chloride) 50 mls @ 100 mls/hr IVPB Q12HR [facility] Last Admin: 07/28/21 09:42 Dose: Not Given Documented by: Dextrose/Water (Dextrose 5%-Water Iv Soln) 1,000 mls @ 100 mls/hr IV .Q10H [facility] Last Admin: 07/28/21 15:20 Dose: 100 mls/hr Documented by: Levothyroxine Sodium (Levothyroxine 25 Mcg Tab) 25 mcg PO DAILY@0630 [facility] Last Admin: 07/28/21 05:39 Dose: 25 mcg Documented by: Naloxone HCl (Naloxone 0.4 Mg/Ml 1 Ml Vial) 0.2 mg IV Q2M PRN PRN Reason: Opioid Reversal Ondansetron HCl (Ondansetron 4 Mg/2 Ml Vial) 4 mg IVP Q8HR PRN PRN Reason: Nausea And Vomiting Pantoprazole Sodium (Pantoprazole 40 Mg Tablet) 40 mg PO AC-BID [facility] Last Admin: 07/28/21 09:41 Dose: 40 mg Documented by: Past medical history: Dementia, hypothyroid, hiatal hernia Social history: Unable to obtain. Resident of [facility] Family history: Patient cannot tell Physical examination: VITAL SIGNS: 97.6, 108, 18, 121/81, 94% room air GENERAL: Reclining in bed,, , tired EYES: Pupils equal. Conjunctiva normal. HEENT: External appearance of nose and ears normal, oral cavity dry mucous membrane. NECK: JVD not raised; masses not palpable. HEART: Heart sounds irregular; edema. LUNGS: Respiratory rate normal; decreased breath sounds ABDOMEN: Soft, nontender, liver spleen not palpable, no masses palpable. PSYCH: Sleepy MUSCULOSKELETAL: Evidence of OA in several joints INVESTIGATIONS, reviewed in the clinical context: July 28: WBC 10.3 hemoglobin 9 platelets 197 sodium 151 potassium 4. 36 creatinine 1.40 pro-calcitonin 0.73 July 27: White count 11 hemoglobin 9.6 platelets 167 sodium 148 potassium 2.9 BUN 37 creatinine 1.29 WBC scan: Negative EEG: Negative for epileptiform activity. Suggestive of encephalopathy. July 19: Sodium 147 potassium 3.8. 95 creatinine 2.91 Renal ultrasound: Suboptimal study. July 18: Sodium 142 potassium 3 BUN 95 creatinine 3.56 lactic acid 4.9 WBC 15.2 hemoglobin 13.4 platelets 243 INR 1.4 sodium 140 potassium 4.2 BUN 97 creatinine 4.02 Lactic acid 10.4 magnesium 2.4 creatinine kind is 182 troponin I 0.685 albumin 2.7 UA negative for leukoesterase and nitrite Coronavirus [PCR]: Not detected EKG tracing personally reviewed by me-normal sinus rhythm, poor R-wave progression, intraventricular block, ST-T wave changes. CT brain without contrast: No evidence of any stroke. Some increase in degree of ventriculomegaly. AIDS related changes. Consider hydrocephalus/NPH CT angiogram head and neck: Fusiform stenosis of cervical internal carotid arteries bilaterally. Chest x-ray film personally reviewed by me-bilateral infiltrates Assessment and plan: -Acute metabolic encephalopathy, likely combination of sepsis, severe renal failure from pneumonia: Worsening with hypernatremia Follow clinically -Bilateral pneumonia, suspect gram-negative organism. Suspect additional aspiration pneumonia: Blood cultures positive for MSSA. Repeat blood cultures negative. IV Ancef -Sepsis with lactic acidosis: No fever. White count elevated. Blood culture positive from July 17: MSSA: Improving IV fluids. IV Ancef. WBC nuclear scan : Negative -Acute blood loss anemia from GI bleed Follow H&H. Protonix 40 mg twice a day -Paroxysmal atrial fibrillation No anticoagulation because of GI bleed. Baby aspirin -Acute hypoxic respiratory failure secondary to pneumonia: Better Patient was put on BiPAP initially. Oxygenating satisfactory on room air -Acute kidney injury possibly combination of prerenal and ATN from sepsis dehydration. Poor Introl oral intake for a few days.: Slow to respond IV fluids. D5 0.45. Admission creatinine 3.56. Improved. Decrease IV fluids -Acute GI bleed with one episode of bloody bowel movement Follow H&H. surgery no current intervention. -Hypernatremia from free water deficit. Patient's had no IV access since yesterday.: New diagnosis Awaiting PICC line placement -Primary osteoarthritis Pain medications as needed -Cognitive impairment from underlying Alzheimer's dementia -Hypothyroid Synthroid 25 g daily -DO NOT RESUSCITATE Pending IV access. Sodium was going up. IV fluids. Continue antibiotics. Prognosis guarded. Repeat labs tomorrow.
[2021-07-28] MEDS: ATORVASTATIN 10 MG TAB PO SCH (21:25)
--- NOTE | 2021-07-29 02:15 | PN ---
PROGRESS NOTE DATE OF SERVICE: 07/28/2021 REASON FOR FOLLOWUP: MSSA bacteremia. INTERVAL HISTORY: The patient is afebrile. The patient is breathing comfortably on room air. The patient is not a very good historian, though when asked specifically, she said no to any chest pain or cough or abdominal pain or diarrhea. PHYSICAL EXAMINATION: Blood pressure 128/74 with a pulse of 111, temperature 98.1. She is 93% on room air. General description is an elderly female lying in bed in no distress. Respiratory system: Unlabored breathing, decreased intensity of breath sounds. No wheeze. Heart S1, S2. Regular rate and rhythm. Abdomen soft, no tenderness. LABS: Hemoglobin is 9, white count 10.3, creatinine 1.40. Blood culture repeat has been negative. DIAGNOSTIC IMPRESSION AND PLAN: Patient with MSSA bacteremia and this patient has cleared her bacteremia very quickly. Patient's echocardiogram was negative. Nuclear scan was negative. Plan is for 4 weeks of antibiotics from her negative blood culture and close outpatient followup. Continue with supportive care. MMODL / IJN: [id number] /
[2021-07-29] MEDS: LEVOTHYROXINE 25 MCG TAB PO SCH (05:35)
[2021-07-29 06:44] LABS: African American GFR (CKD) 43 (>60 ml/min/1.73 sqM); Anion Gap 4 mmol/L; Blood Urea Nitrogen 34 mg/dL (7-17); Calcium 8.1 mg/dL (8.4-10.2); Carbon Dioxide 20 mmol/L (22-30); Chloride 123 mmol/L (98-107); Glucose 95 mg/dL (74-99); Magnesium 1.8 mg/dL (1.6-2.3); Non-African American GFR(CKD) 38 (>60 ml/min/1.73 sqM); Sodium 147 mmol/L (137-145)
[2021-07-29] MEDS: FOLIC ACID 1 MG TAB PO SCH (09:12)
[2021-07-29] MEDS: DEXTROSE 5% IN WATER 1,000 ML IV SCH ×2 (09:12→22:01)
[2021-07-29] MEDS: PANTOPRAZOLE 40 MG TABLET PO SCH ×2 (09:12→16:10)
[2021-07-29] MEDS: ASPIRIN 81 MG PO SCH (09:12)
--- NOTE | 2021-07-29 11:54 | P.PN ---
Subjective Patient is seen in follow for acute kidney injury. Renal function a little better. Sodium level 147 today. Receiving D5W. Patient has history of dementia. Vital signs are stable. General: Resting in bed. HEENT: Head exam is unremarkable. LUNGS: Breath sounds decreased. HEART: Rate and Rhythm are regular. ABDOMEN: Soft, no distention. EXTREMITITES: No edema. Objective - Vital Signs Vital signs: Vital Signs Temp 97.9 F 07/29/21 05:00 Pulse 98 07/29/21 05:00 Resp 17 07/29/21 05:00 BP 111/66 07/29/21 05:00 Pulse Ox 95 07/29/21 05:00 Intake & Output 07/28/21 07/29/21 07/29/21 18:59 06:59 18:59 Weight 87 kg Other: Voiding Method Diaper Diaper Diaper Incontinent Incontinent # Voids 4 1 # Bowel Movements 2 1 - Labs CBC & Chem 7: 07/28/21 05:18 07/29/21 06:03 Labs: Abnormal Lab Results - Last 24 Hours (Table) 07/28/21 07/28/21 07/29/21 Range/Units 05:18 17:21 06:03 Sodium 151 H 147 H (137-145) mmol/L Chloride 123 H (98-107) mmol/L Carbon Dioxide 20 L (22-30) mmol/L BUN 34 H (7-17) mg/dL Creatinine 1.31 H (0.52-1.04) mg/dL Calcium 8.1 L (8.4-10.2) mg/dL Procalcitonin 0.73 H (0.02-0.09) ng/mL Microbiology - Last 24 Hours (Table) 07/24/21 09:03 Blood Culture - Preliminary Blood No Growth after 120 hours 07/23/21 06:46 Blood Culture - Final Blood No Growth after 144 hours 07/22/21 12:31 Blood Culture - Final Blood No Growth after 144 hours Assessment and Plan Plan: Assessment: 1. Acute kidney injury secondary to ATN secondary to hypotension. Patient also received IV contrast on July 17. Creatinine was 4.02 on admission and improved to 1.29 as of July 27 - 1.31 today. Baseline creatinine near 1. Left kidney atrophic. No hydronephrosis noted on kidney ultrasound. 2. Acute hypoxic respiratory failure. 3.. Hypokalemia from poor intake. Replaced. Better. 4. Metabolic acidosis secondary to acute kidney injury s/p bicarb drip. 5. Staph aureus bacteremia on antibiotics. Infectious disease following. 6. Hypernatremia from lack of free water intake. Better. Plan: Maintain D5W. Add oral bicarbonate. Repeat labs in the morning. Continue to monitor renal function and urine output.
--- NOTE | 2021-07-29 15:38 | PN ---
PROGRESS NOTE DATE OF SERVICE: 07/29/2021 REASON FOR FOLLOWUP: MSSA bacteremia. INTERVAL HISTORY: The patient is afebrile. The patient is breathing comfortably. The patient is hemodynamically stable and not a good historian. Did not provide a reliable history, though no vomiting, diarrhea or any other changes reported by the nursing staff. EXAMINATION: Her blood pressure is 153/64, pulse of 97, temperature 97.5. She is 97% on room air. General description is an elderly female up in the bed in no distress. Respiratory system: Unlabored breathing, decreased intensity of breath sounds. No wheeze. Heart S1, S2. Regular rate and rhythm. Abdomen soft, no tenderness. LABS: BUN of 34, creatinine is 1.31. Blood culture repeat has been negative. DIAGNOSTIC IMPRESSION AND PLAN: Patient with MSSA bacteremia in this patient who did have a fever without any clear or obvious focus. The patient did clear her bacteremia very quickly negative. She will continue with IV cefazolin for another 2 weeks with a plan for repeated blood culture after completion of antibiotic to make sure no evidence of any recurrence of bacteremia, and close outpatient followup. MMODL / IJN: [id number] /
[2021-07-29] MEDS: SODIUM BICARBONATE TAB 650 MG TAB PO SCH ×2 (16:10→22:02)
--- NOTE | 2021-07-29 20:32 | P.PN ---
Progress Note - Text Progress Note Date: 07/29/21 Chief Complaint: Decreased responsiveness The following history per ER notes: This 81-year-old patient was brought by the EMS from assisted living. She was found to be unresponsive this morning. It is unknown when the patient was last seen normal. EMS found the patient to be unresponsive. She was hypoxic with oxygen level in 70s percent. Placed on 15 L nonrebreather. And patient started to become more alert. Humerus was told that the patient has a left hand we akness. Initial heart rate was 124. He was moving her limbs to painful stimuli in the ER. Blood glucose in the ER was 165. Stroke protocol was activated was not felt to be a TPA candidate. Daughter Doris told the ER physician that for last several days patient has been getting weak. worker in the assisted living also tested positive for COVID. The patient had tested negative. Patient had decreased oral intake in the last 2-3 days. Patient has a history of dementia thyroid disease and hiatal hernia. Patient had elevated BUN and creatinine. Sodium bicarbonate drip was started. Patient was on BiPAP. Also received some fluid bolus. When I came to see the patient.- lethargic but arousable. Doesn't answer questions. Moving all limbs. Getting IV fluids Admitted with acute metabolic encephalopathy, bilateral pneumonia, sepsis with lactic acidosis, acute hypoxic respiratory failure, acute kidney injury felt to be combination of prerenal and ATN. Started IV Zosyn fluids oxygen supplementation. July 19: Patient is bit more awake today. Rather tired. Not answering questions. Pulse oxing well 94% on room air. IV antibiotic. July 20: Overnight patient had one large bloody bowel movement. Awake. Tired. No pain. Surgery consulted July 21: Patient is advanced to full liquid diet. Will have the feeding done with assistance. Laying in bed. Tired. Not really speaking much. July 22: Patient is barely eating much. Diet. Laying in bed. Not in distress. On IV Zosyn. Blood cultures positive for MSSA. July 23: Telemetry strips showing possible A. fib. Discussed with neurology. Oral intake somewhat better. Pulse ox 94%. Because patient had a large bloody bowel movement 3 days ago she noted a good candidate for eliquis. We'll start the patient on aspirin and she is only on Protonix. If she was to bleed then aspirin would have to be discontinued also. July 24: Congested cough. Eating between 25-50%. Tired. Reclining, more awake. WBC scan ordered by ID July 25: Oral intake remains low. Tired. WBC scan unremarkable. July 26: Tired. Decreased oral intake. Not in distress July 27: Afebrile, pulse ox good. Oral intake fair. IV Ancef. IDs planning for outpatient IV antibiotics. July 28: Patient had no IV access since yesterday. Pending PICC line placement. Sodium has gone up. Oral intake variable. July 29: Patient got a PICC line patient placed yesterday. Started IV fluids. More responding today. Answering simple questions. Wants to eat more. Sodium was started to come down. Review of systems: Was done for constitutional, cardiovascular, GI, pulmonary. relevant finding as above Active Medications Acetaminophen (Acetaminophen Tab 325 Mg Tab) 650 mg PO Q6HR PRN PRN Reason: Mild Pain or Fever > 100.5 Aspirin (Aspirin 81 Mg) 81 mg PO DAILY [facility] Last Admin: 07/29/21 09:12 Dose: 81 mg Documented by: Atorvastatin Calcium (Atorvastatin 10 Mg Tab) 10 mg PO HS [facility] Last Admin: 07/28/21 21:25 Dose: 10 mg Documented by: Folic Acid (Folic Acid 1 Mg Tab) 1 mg PO DAILY [facility] Last Admin: 07/29/21 09:12 Dose: 1 mg Documented by: Cefazolin Sodium 2 gm/ Sodium (Chloride) 50 mls @ 100 mls/hr IVPB Q12HR [facility] Last Admin: 07/29/21 09:56 Dose: 100 mls/hr Documented by: Dextrose/Water (Dextrose 5%-Water Iv Soln) 1,000 mls @ 100 mls/hr IV .Q10H [facility] Last Admin: 07/29/21 09:12 Dose: 100 mls/hr Documented by: Levothyroxine Sodium (Levothyroxine 25 Mcg Tab) 25 mcg PO DAILY@0630 [facility] Last Admin: 07/29/21 05:35 Dose: Not Given Documented by: Naloxone HCl (Naloxone 0.4 Mg/Ml 1 Ml Vial) 0.2 mg IV Q2M PRN PRN Reason: Opioid Reversal Ondansetron HCl (Ondansetron 4 Mg/2 Ml Vial) 4 mg IVP Q8HR PRN PRN Reason: Nausea And Vomiting Pantoprazole Sodium (Pantoprazole 40 Mg Tablet) 40 mg PO AC-BID [facility] Last Admin: 07/29/21 16:10 Dose: 40 mg Documented by: Sodium Bicarbonate (Sodium Bicarbonate Tab 650 Mg Tab) 650 mg PO BID [facility] Last Admin: 07/29/21 16:10 Dose: 650 mg Documented by: Past medical history: Dementia, hypothyroid, hiatal hernia Social history: Unable to obtain. Resident of [facility] Family history: Patient cannot tell Physical examination: VITAL SIGNS: 97.5, 97, 16, 103 with 64, 97% room air GENERAL: Reclining in bed,, more responsive today EYES: Pupils equal. Conjunctiva normal. HEENT: External appearance of nose and ears normal, oral cavity dry mucous membrane. NECK: JVD not raised; masses not palpable. HEART: Heart sounds irregular; edema. LUNGS: Respiratory rate normal; decreased breath sounds ABDOMEN: Soft, nontender, liver spleen not palpable, no masses palpable. PSYCH: Answering simple questions MUSCULOSKELETAL: Evidence of OA in several joints INVESTIGATIONS, reviewed in the clinical context: July 29: Sodium 147 chloride 123 BUN 34 creatinine 1.31 July 28: WBC 10.3 hemoglobin 9 platelets 197 sodium 151 potassium 4. 36 creatinine 1.40 pro-calcitonin 0.73 July 27: White count 11 hemoglobin 9.6 platelets 167 sodium 148 potassium 2.9 BUN 37 creatinine 1.29 WBC scan: Negative EEG: Negative for epileptiform activity. Suggestive of encephalopathy. July 19: Sodium 147 potassium 3.8. 95 creatinine 2.91 Renal ultrasound: Suboptimal study. July 18: Sodium 142 potassium 3 BUN 95 creatinine 3.56 lactic acid 4.9 WBC 15.2 hemoglobin 13.4 platelets 243 INR 1.4 sodium 140 potassium 4.2 BUN 97 creatinine 4.02 Lactic acid 10.4 magnesium 2.4 creatinine kind is 182 troponin I 0.685 albumin 2.7 UA negative for leukoesterase and nitrite Coronavirus [PCR]: Not detected EKG tracing personally reviewed by me-normal sinus rhythm, poor R-wave progression, intraventricular block, ST-T wave changes. CT brain without contrast: No evidence of any stroke. Some increase in degree of ventriculomegaly. AIDS related changes. Consider hydrocephalus/NPH CT angiogram head and neck: Fusiform stenosis of cervical internal carotid arteries bilaterally. Chest x-ray film personally reviewed by me-bilateral infiltrates Assessment and plan: -Acute metabolic encephalopathy, likely combination of sepsis, severe renal failure from pneumonia: Some improvement Follow clinically -Bilateral pneumonia, suspect gram-negative organism. Suspect additional aspiration pneumonia: Blood cultures positive for MSSA. Repeat blood cultures negative. IV Ancef -Sepsis with lactic acidosis: No fever. White count elevated. Blood culture positive from July 17: MSSA: Improving IV fluids. IV Ancef. WBC nuclear scan : Negative -Acute blood loss anemia from GI bleed Follow H&H. Protonix 40 mg twice a day -Paroxysmal atrial fibrillation No anticoagulation because of GI bleed. Baby aspirin -Acute hypoxic respiratory failure secondary to pneumonia: Better Patient was put on BiPAP initially. Oxygenating satisfactory on room air -Acute kidney injury possibly combination of prerenal and ATN from sepsis dehydration. Poor Introl oral intake for a few days.: Started to turn around IV fluids. D5 0.45. Admission creatinine 3.56. Improved. Decrease IV fluids -Acute GI bleed with one episode of bloody bowel movement Follow H&H. surgery no current intervention. -Hypernatremia from free water deficit. Patient's had no IV access since yesterday.: Slow improvement D5W. At 100 mL an hour -Primary osteoarthritis Pain medications as needed -Cognitive impairment from underlying Alzheimer's dementia -Hypothyroid Synthroid 25 g daily -DO NOT RESUSCITATE Continue with D5 0.45. Assisted oral intake. Hopefully discharge tomorrow.
[2021-07-29] MEDS: ATORVASTATIN 10 MG TAB PO SCH (22:01)
[2021-07-30] MEDS: LEVOTHYROXINE 25 MCG TAB PO SCH (05:10)
[2021-07-30] MEDS: DEXTROSE 5% IN WATER 1,000 ML IV SCH ×2 (05:10→09:31)
[2021-07-30] MEDS: SODIUM BICARBONATE TAB 650 MG TAB PO SCH (08:57)
[2021-07-30] MEDS: ASPIRIN 81 MG PO SCH (08:57)
[2021-07-30] MEDS: PANTOPRAZOLE 40 MG TABLET PO SCH (08:57)
[2021-07-30] MEDS: FOLIC ACID 1 MG TAB PO SCH (08:57)
[2021-07-30 09:33] LABS: African American GFR (CKD) 48.4 (60.0-200.0); Anion Gap 10.7 mmol/L (10.00-18.00); BUN/Creat Ratio 21.92 Ratio (12.00-20.00); Blood Urea Nitrogen 26.3 mg/dL (9.0-27.0); Calcium 7.8 mg/dL (8.7-10.3); Carbon Dioxide 20.3 mmol/L (20.0-27.5); Magnesium 1.6 mg/dL (1.5-2.4); Non-African American GFR(CKD) 41.8 (60.0-200.0); Potassium 3.9 mmol/L (3.5-5.5)
[2021-07-30 09:46] VITALS: RESP 18
--- NOTE | 2021-07-30 10:53 | P.PN ---
Subjective Patient is seen in follow for acute kidney injury. Renal function a little better. Sodium level 145 today. Receiving D5W. Patient has history of dementia. Not a reliable historian. Vital signs are stable. General: Resting in bed. HEENT: Head exam is unremarkable. LUNGS: Breath sounds decreased. HEART: Rate and Rhythm are regular. ABDOMEN: Soft, no distention. EXTREMITITES: No edema. Objective - Vital Signs Vital signs: Vital Signs Temp 97.5 F L 07/30/21 05:00 Pulse 77 07/30/21 08:00 Resp 18 07/30/21 08:00 BP 100/64 07/30/21 05:00 Pulse Ox 92 L 07/30/21 05:00 Intake & Output 07/29/21 07/30/21 07/30/21 18:59 06:59 18:59 Intake Total 1250 Balance 1250 Intake: Intake, IV Titration 1250 Amount Dextrose 5% in Water 1, 1200 000 ml @ 100 mls/hr IV . Q10H [facility] Rx#:[id number] ceFAZolin 2 gm In Sodium 50 Chloride 0.9% 50 ml @ 100 mls/hr IVPB Q12HR [facility] Rx #:[id number] Other: Voiding Method Diaper Diaper Diaper Incontinent Incontinent Incontinent # Voids 3 2 # Bowel Movements 2 - Labs CBC & Chem 7: 07/28/21 05:18 07/30/21 06:08 Labs: Abnormal Lab Results - Last 24 Hours (Table) 07/30/21 Range/Units 06:08 Chloride 114 H (96-109) mmol/L Est GFR (CKD-EPI)AfAm 48.4 L (60.0-200.0) Est GFR (CKD-EPI)NonAf 41.8 L (60.0-200.0) BUN/Creatinine Ratio 21.92 H (12.00-20.00) Ratio Calcium 7.8 L (8.7-10.3) mg/dL Microbiology - Last 24 Hours (Table) 07/24/21 09:03 Blood Culture - Preliminary Blood No Growth after 120 hours 07/23/21 06:46 Blood Culture - Final Blood No Growth after 144 hours Assessment and Plan Plan: Assessment: 1. Acute kidney injury secondary to ATN secondary to hypotension. Patient also received IV contrast on July 17. Creatinine was 4.02 on admission and improved to 1.29 as of July 27 - 1.2 today. Baseline creatinine near 1. Left kidney atrophic. No hydronephrosis noted on kidney ultrasound. 2. Acute hypoxic respiratory failure. 3.. Hypokalemia from poor intake. Replaced. 4. Metabolic acidosis secondary to acute kidney injury s/p bicarb drip. Now on oral bicarbonate. 5. Staph aureus bacteremia on antibiotics. Infectious disease following. 6. Hypernatremia from lack of free water intake. Better. 7. Hypomagnesemia from poor intake. Plan: Maintain D5W. Repeat labs in the morning. Continue to monitor renal function and urine output. Replace magnesium.
[2021-07-30 13:31] VITALS: BP 103/64; PULSE 106; TEMP 98.9
[2021-07-30] MEDS: MAGNESIUM SULFATE-D5W PMX 1 GM in DEXTROSE/WATER 1 100ML.BAG IVPB SCH ×2 (13:40→14:32)
--- NOTE | 2021-07-30 14:37 | PN ---
PROGRESS NOTE DATE OF SERVICE: 07/30/2021 REASON FOR FOLLOWUP: MSSA bacteremia. INTERVAL HISTORY: Patient is afebrile. The patient is currently breathing comfortably on room air. The patient is hemodynamically stable. She did not answer any questions. No vomiting, diarrhea or any other changes reported by the nursing staff. PHYSICAL EXAMINATION: Blood pressure 103/64 with a pulse of , temperature 98.9. She is 95% on room air. General description is an elderly female lying in bed in no distress. Respiratory system: Unlabored breathing, clear to auscultation anteriorly. Heart S1, S2. Regular rate and rhythm. Abdomen soft, no tenderness. LABS: Creatinine is down to 1.2. DIAGNOSTIC IMPRESSION AND PLAN: Patient with MSSA bacteremia. Patient bacteremia very quickly. The patient did have scan and echocardiogram. Continue with cefazolin for another 2 weeks and close outpatient followup. Continue supportive care. MMODL / IJN: [id number] /
--- NOTE | 2021-07-30 15:15 | P.DS ---
Providers Date of admission: 07/17/21 18:24 Expected date of discharge: 07/30/21 Attending physician: Jericho Mckeon Consults: 07/17/21 18:21 Consult Physician Routine Consulting Provider: Claudia Jolley Consult Reason/Comments: taylor Do you want consulting provider notified?: Yes 07/17/21 18:22 Consult Physician Routine Consulting Provider: Bridger Maciel Consult Reason/Comments: hypoxia Do you want consulting provider notified?: Yes 07/17/21 18:25 Consult Physician Routine Consulting Provider: Leroy Maciel Consult Reason/Comments: code stroke Do you want consulting provider notified?: Yes 07/22/21 16:00 Consult Physician Routine Consulting Provider: Erwin Kaur Consult Reason/Comments: Sepsis Do you want consulting provider notified?: Yes 07/26/21 13:07 Consult to Anesthesia Routine Consulting Provider: Anesthesia,Services Consult Reason/Comments: IV access Primary care physician: [facility] Hospital Course: Chief Complaint: Decreased responsiveness The following history per ER notes: This 81-year-old patient was brought by the EMS from assisted living. She was found to be unresponsive this morning. It is unknown when the patient was last seen normal. EMS found the patient to be unresponsive. She was hypoxic with oxygen level in 70s percent. Placed on 15 L nonrebreather. And patient started to become more alert. Humerus was told that the patient has a left hand weakness. Initial heart rate was 124. He was moving her limbs to painful stimuli in the ER. Blood glucose in the ER was 165. Stroke protocol was activated was not felt to be a TPA candidate. Daughter Doris told the ER physician that for last several days patient has been getting weak. worker in the assisted living also tested positive for COVID. The patient had tested negative. Patient had decreased oral intake in the last 2-3 days. Patient has a history of dementia thyroid disease and hiatal hernia. Patient had elevated BUN and creatinine. Sodium bicarbonate drip was started. Patient was on BiPAP. Also received some fluid bolus. When I came to see the patient.- lethargic but arousable. Doesn't answer questions. Moving all limbs. Getting IV fluids Admitted with acute metabolic encephalopathy, bilateral pneumonia, sepsis with lactic acidosis, acute hypoxic respiratory failure, acute kidney injury felt to be combination of prerenal and ATN. Started IV Zosyn fluids oxygen supplementation. Patient had one episode of large bloody bowel movement. Was followed conservatively. Patient also had atrial fibrillation. But because of GI bleed on the aspirin is given. If any further bleeding then aspirin will have to be discontinued. Patient had a WBC white scan that was unremarkable. Repeat blood cultures were negative for MSSA. Patient had a PICC line placed. Today: Eating small amounts. On seeing simple questions. Tired. Receive 2 weeks of IV Ancef per Dr. Maradiaga. prognosis guarded. Discussion and discharge planning more than 35 minutes Consultation: Dr. Kaur from ID Nephrology Dr. Villegas from pulmonary Dr. Fay from neurology Past medical history: Dementia, hypothyroid, hiatal hernia Social history: Unable to obtain. Resident of care home Family history: Patient cannot tell Physical examination: VITAL SIGNS: 98.9, 77, 18, 10 3 x 64, 95% room air GENERAL: Reclining in bed,, tired, EYES: Pupils equal. Conjunctiva normal. HEENT: External appearance of nose and ears normal, oral cavity dry mucous membrane. NECK: JVD not raised; masses not palpable. HEART: Heart sounds irregular; edema. LUNGS: Respiratory rate normal; decreased breath sounds ABDOMEN: Soft, nontender, liver spleen not palpable, no masses palpable. PSYCH: Answering simple questions MUSCULOSKELETAL: Evidence of OA in several joints INVESTIGATIONS, reviewed in the clinical context: July 30: Sodium 145 potassium 3.9 creatinine 1.2 WBC scan: Negative EEG: Negative for epileptiform activity. Suggestive of encephalopathy. Renal ultrasound: Suboptimal study. July 18: Sodium 142 potassium 3 BUN 95 creatinine 3.56 lactic acid 4.9 WBC 15.2 hemoglobin 13.4 platelets 243 INR 1.4 sodium 140 potassium 4.2 BUN 97 creatinine 4.02 Lactic acid 10.4 magnesium 2.4 creatinine kind is 182 troponin I 0.685 albumin 2.7 UA negative for leukoesterase and nitrite Coronavirus [PCR]: Not detected EKG tracing personally reviewed by me-normal sinus rhythm, poor R-wave progression, intraventricular block, ST-T wave changes. CT brain without contrast: No evidence of any stroke. Some increase in degree of ventriculomegaly. AIDS related changes. Consider hydrocephalus/NPH CT angiogram head and neck: Fusiform stenosis of cervical internal carotid arteries bilaterally. Chest x-ray film personally reviewed by me-bilateral infiltrates Assessment and plan: -Acute metabolic encephalopathy, likely combination of sepsis, severe renal failure from pneumonia: Better Follow clinically -Bilateral pneumonia, suspect gram-negative organism. Suspect additional aspiration pneumonia: Blood cultures positive for MSSA. Repeat blood cultures negative. IV Ancef for 2 weeks -Sepsis with lactic acidosis: No fever. White count elevated. Blood culture positive from July 17: MSSA: Improving IV Ancef-for 2 weeks. WBC nuclear scan : Negative -Acute blood loss anemia from GI bleed Follow H&H. Protonix 40 mg twice a day -Paroxysmal atrial fibrillation No anticoagulation because of GI bleed. Baby aspirin -Acute hypoxic respiratory failure secondary to pneumonia: Better Patient was put on BiPAP initially. Oxygenating satisfactory on room air -Acute kidney injury possibly combination of prerenal and ATN from sepsis dehydration. Better Received IV fluids Admission creatinine 3.56. Improved. Creatinine 1.2 -Acute GI bleed with one episode of bloody bowel movement Follow H&H. surgery no current intervention. -Hypernatremia from free water deficit. Patient's had no IV access since yesterday.: Better D5W. At 100 mL an hour -Primary osteoarthritis Pain medications as needed -Moderate Cognitive impairment from underlying Alzheimer's dementia -Hypothyroid Synthroid 25 g daily -DO NOT RESUSCITATE Disposition: [facility], with [facility] - Discharge Summary New Discharge Prescriptions: New Atorvastatin [Lipitor] 10 mg PO HS #30 tab Aspirin 81 mg PO DAILY #30 tab Pantoprazole [Protonix] 40 mg PO AC-BID #60 tab Continue Sennosides/Docusate Sodium [Senna Plus 8.6-50 mg Softgel] 2 cap PO HS@1900 Ascorbic Acid [Vitamin C] 500 mg PO BID@0700,1900 Liquacel 30 ml PO BID@0700,1900 Levothyroxine Sodium [Synthroid] 25 mcg PO DAILY@0700 Cholecalciferol [Vitamin D3 (25 Mcg = 1000 Iu)] 50 mcg PO DAILY@0700 Folic Acid 1 mg PO DAILY@0700 Calcium Polycarbophil [Fiber-Lax] 625 mg PO DAILY@0700 Cyanocobalamin (Vitamin B-12) [Vitamin B-12] 1,000 mcg PO DAILY@0700 Magnesium Hydroxide [Milk of Magnesia] 2,400 mg PO DAILY PRN PRN Reason: CONSTIPATION X3 DAYS Discontinued Zinc Sulfate [Orazinc] 220 mg PO DAILY@0700 Memantine [Namenda] 10 mg PO BID@07,0 Lactulose 20 gm PO Q1H PRN PRN Reason: UNTIL BOWEL MOVEMENT Calcium Carbonate [Tums] 500 - 1,000 mg PO TID PRN PRN Reason: Gi Upset Metoprolol Succinate [Toprol XL] 25 mg PO DAILY@0700 Furosemide [Lasix] 20 mg PO Q48H Discharge Medication List Ascorbic Acid [Vitamin C] 500 mg PO BID@0700,19007/17/21 [History] Calcium Polycarbophil [Fiber-Lax] 625 mg PO DAILY@0707/17/21 [History] Cholecalciferol [Vitamin D3 (25 Mcg = 1000 Iu)] 50 mcg PO DAILY@69907/17/21 [History] Cyanocobalamin (Vitamin B-12) [Vitamin B-12] 1,000 mcg PO DAILY@69907/17/21 [History] Folic Acid 1 mg PO DAILY@69907/17/21 [History] Levothyroxine Sodium [Synthroid] 25 mcg PO DAILY@69907/17/21 [History] Liquacel 30 ml PO BID@0700,189907/17/21 [History] Magnesium Hydroxide [Milk of Magnesia] 2,400 mg PO DAILY PRN 07/17/21 [History] Sennosides/Docusate Sodium [Senna Plus 8.6-50 mg Softgel] 2 cap PO HS@189907/17/21 [History] Aspirin 81 mg PO DAILY #30 tab 07/30/21 [Rx] Atorvastatin [Lipitor] 10 mg PO HS #30 tab 07/30/21 [Rx] Pantoprazole [Protonix] 40 mg PO AC-BID #60 tab 07/30/21 [Rx] Follow up App[facility]ment(s)/Ref[facility] - Nicole Luna [NON-STAFF] - Tray Saeed MD [Primary Care Provider] - 3 Days Erwin Kaur MD [STAFF PHYSICIAN] - 2 Weeks Patient Instructions/Handouts: Aspirin (By mouth), Atorvastatin (By mouth), Pantoprazole (By mouth), Sepsis (GEN), Pneumonia (DC) Activity/Diet/Wound Care/Special Instructions: Return to [facility] abx per dr Kaur
[2021-07-31] MEDS ORDERED: MAGNESIUM OXIDE 400 MG TAB PO SCH (09:00)
== END 2021-07-30 16:45 | disposition home health service (06) | DRG 871 ==
LOC: EC 15:37 → 3SCARD 18:24 → 5NMEDONC 07-25 13:11
PROVIDERS: ADMIT Hospitalist; ATTEND Hospitalist
PROC: 02HV33Z Insertion of Infusion Device into Superior Vena Cava, Percutaneous Approach (ICD-10-PCS; principal; 2021-07-28 11:30)
PROC: B548ZZA Ultrasonography of Superior Vena Cava, Guidance (ICD-10-PCS; principal; 2021-07-28 11:30)
PROC: B518YZA Fluoroscopy of Superior Vena Cava using Other Contrast, Guidance (ICD-10-PCS; principal; 2021-07-28 11:30)
DX: A41.01 Sepsis due to Methicillin susceptible Staphylococcus aureus (principal); G92.8 Other toxic encephalopathy; G93.41 Metabolic encephalopathy; J15.211 Pneumonia due to Methicillin susceptible Staphylococcus aureus; N17.0 Acute kidney failure with tubular necrosis; J96.01 Acute respiratory failure with hypoxia; D62 Acute posthemorrhagic anemia; E87.0 Hyperosmolality and hypernatremia; E87.2 Acidosis; G93.1 Anoxic brain damage, not elsewhere classified; R65.20 Severe sepsis without septic shock; Z66 Do not resuscitate; F03.90 Unspecified dementia, unspecified severity, without behavioral disturbance, psychotic disturbance, mood disturbance, and anxiety; E07.9 Disorder of thyroid, unspecified; K44.9 Diaphragmatic hernia without obstruction or gangrene; Z20.822 Contact with and (suspected) exposure to COVID-19; E03.9 Hypothyroidism, unspecified; E83.42 Hypomagnesemia; I48.0 Paroxysmal atrial fibrillation; E87.6 Hypokalemia; E87.70 Fluid overload, unspecified; G30.9 Alzheimer's disease, unspecified; F02.80 Dementia in other diseases classified elsewhere, unspecified severity, without behavioral disturbance, psychotic disturbance, mood disturbance, and anxiety; M19.91 Primary osteoarthritis, unspecified site; N26.1 Atrophy of kidney (terminal); Z79.2 Long term (current) use of antibiotics; Z79.890 Hormone replacement therapy; Z79.899 Other long term (current) drug therapy
CPT/HCPCS: 36415; 36573; 70450; 70496; 70498; 71045; 71046; 76770; 78306; 80048; 80053; 80061; 80202; 81001; 82140; 82272; 82550; 82607; 82746; 83605; 83735; 83880; 84132; 84145; 84295; 84443; 84484; 85025; 85610; 85652; 85730; 86140; 86850; 86900; 86901; 87040; 87077; 87186; 87324; 87635; 93005; 93306; 94660; 94760; 95816; 96361; 96365; 96366; 96368; 96375; 99291